=== PATIENT | female | born 1950 | race Caucasian/White ===

== ENCOUNTER 2018-08-29 10:21 | Emergency (ER) | payer BC, OTHER ==
[~2018-08-29] VITALS: Ht 165.1 cm; Wt 104.2 kg
[2018-08-29] MEDS ORDERED: RABIES IMMUNE GLOBULIN 1500 INTERNATIONAL UNIT/5ML VIAL (90375) IM ONE ×2 (10:45→11:00)
[2018-08-29] MEDS ORDERED: RABIES VACCINE HUMAN 2.5 INTERNATIONAL UNITS/ML VIAL (90675) IM ONE (10:45)
[2018-08-29] MEDS ORDERED: RABIES IMMUNE GLOBULIN 300 INTERNATIONAL UNITS/1ML VIAL (90375) IM ONE (11:00)
[2018-08-29 12:10] VITALS: BP 112/68
== END 2018-08-29 12:13 | disposition home or self-care (01) ==
LOC: M ED 10:21
DX: Z20.3 Contact with and (suspected) exposure to rabies (principal); Z23 Encounter for immunization; Z88.2 Allergy status to sulfonamides; Z87.891 Personal history of nicotine dependence

== ENCOUNTER 2018-09-01 06:22 | Emergency (ER) | payer BC, OTHER ==
[~2018-09-01] VITALS: Ht 165.1 cm; Wt 104.0 kg
[2018-09-01] MEDS ORDERED: ADACEL/BOOSTRIX VACCINE (DIPHTH/PERTUSS/ACELL/TETANUS)0.5ML SYR (90715) IM ONE (07:15)
[2018-09-01] MEDS ORDERED: RABIES VACCINE HUMAN 2.5 INTERNATIONAL UNITS/ML VIAL (90675) IM ONE (07:15)
[2018-09-01 08:10] VITALS: BP 134/60
== END 2018-09-01 08:38 | disposition home or self-care (01) ==
LOC: M ED 06:22
DX: Z23 Encounter for immunization (principal); Z20.3 Contact with and (suspected) exposure to rabies; E11.9 Type 2 diabetes mellitus without complications; Z79.899 Other long term (current) drug therapy; Z88.1 Allergy status to other antibiotic agents; Z88.2 Allergy status to sulfonamides; Z87.891 Personal history of nicotine dependence

== ENCOUNTER 2018-09-04 10:53 | Emergency (ER) | payer BC ==
[~2018-09-04] VITALS: Ht 165.1 cm; Wt 102.3 kg
[2018-09-04 11:05] VITALS: BP 144/65
[2018-09-04] MEDS ORDERED: FLON1SPR NARES (11:09)
[2018-09-04] MEDS ORDERED: EYESOL OP (11:09)
[2018-09-04] MEDS ORDERED: TETRACAINE 0.5% OPHTH SOLN 4ML OU ONE (13:15)
[2018-09-04] MEDS ORDERED: ERYT1OIN26 OP (14:22)
== END 2018-09-04 15:06 | disposition home or self-care (01) ==
LOC: M ED 10:53 → EDBD 10:53 → M ED 15:06
DX: H54.7 Unspecified visual loss (principal); E11.9 Type 2 diabetes mellitus without complications; Z79.899 Other long term (current) drug therapy; Z88.2 Allergy status to sulfonamides

== ENCOUNTER 2018-09-05 10:31 | Emergency (ER) | payer BC ==
[~2018-09-05] VITALS: Ht 165.1 cm; Wt 105.6 kg
[2018-09-05 10:31] VITALS: BP 135/70
[~2018-09-05 10:31] MED LIST: ERYT1OIN26 OP; EYESOL OP; FLON1SPR NARES
[2018-09-05] MEDS ORDERED: RABIES VACCINE HUMAN 2.5 INTERNATIONAL UNITS/ML VIAL (90675) IM ONE (11:00)
== END 2018-09-05 11:45 | disposition home or self-care (01) ==
LOC: M ED 10:31
DX: Z20.3 Contact with and (suspected) exposure to rabies (principal); Z23 Encounter for immunization

== ENCOUNTER 2018-09-12 08:53 | Emergency (ER) | payer BC, OTHER ==
[~2018-09-12] VITALS: Ht 165.1 cm; Wt 100.0 kg
[2018-09-12] MEDS ORDERED: RABIES VACCINE HUMAN 2.5 INTERNATIONAL UNITS/ML VIAL (90675) IM ONE (10:00)
[2018-09-12 10:23] VITALS: BP 153/74
== END 2018-09-12 10:32 | disposition home or self-care (01) ==
LOC: M ED 08:53
DX: Z20.3 Contact with and (suspected) exposure to rabies (principal); Z23 Encounter for immunization

== ENCOUNTER → 2018-10-06 | Outpatient (REF) | payer BC, OTHER ==
[2018-10-06 14:05] LABS: BASO # 0.1 10^3/uL (0.0-0.2); BASO % 0.6 % (0.0-1.0); EOS # 0.2 10^3/uL (0.0-0.50); EOS % 2.8 % (0.0-3.0); HEMATOCRIT 35.6 % (36.0-47.0); HEMOGLOBIN 11.8 g/dl (12.0-15.5); LYMPH # 1.8 10^3/uL (1.5-4.5); LYMPH % 22.3 % (24.0-44.0); MEAN CORPUSCULAR HGB CONC 33.1 g/dl (32.0-36.5); MEAN CORPUSCULAR VOLUME 90.6 fl (80.0-96.0); MONO # 0.4 10^3/uL (0.0-0.8); MONO % 5.4 % (0.0-5.0); NEUTROPHILS # 5.5 10^3/uL (1.8-7.7); NEUTROPHILS % 68.6 % (36.0-66.0); PLATELET COUNT, AUTOMATED 307 10^3/uL (150-450); RED BLOOD COUNT 3.93 10^6/uL (4.00-5.40)
[2018-10-06 14:20] LABS: ALBUMIN 3.7 GM/DL (3.2-5.2); ALT/SGPT 12 U/L (12-78); BILIRUBIN,TOTAL 0.5 MG/DL (0.2-1.0); BLOOD UREA NITROGEN 27 MG/DL (7-18); CALCIUM LEVEL 9.2 MG/DL (8.8-10.2); CARBON DIOXIDE LEVEL 25 MEQ/L (21-32); CHLORIDE LEVEL 108 MEQ/L (98-107); CREATININE FOR GFR 1.41 MG/DL (0.55-1.30); FREE T4 1.21 NG/DL (0.76-1.46); GLOMERULAR FILTRATION RATE 39.5 (>45); GLUCOSE, FASTING 167 MG/DL (70-100); POTASSIUM SERUM 4.7 MEQ/L (3.5-5.1); RHEUMATOID FACTOR QUANT < 10.0 IU/ML (<15.0); SODIUM LEVEL 138 MEQ/L (136-145); TOTAL PROTEIN 7.8 GM/DL (6.4-8.2)
[2018-10-06 14:41] LABS: VITAMIN B12 LEVEL 395 PG/ML (247-911)
[2018-10-06 14:42] LABS: FOLATE 11.5 NG/ML (>5.4)
[2018-10-06 15:00] LABS: ERYTHROCYTE SEDIMENTATION RATE 61 mm/hr (0-30)
[2018-10-12 00:08] LABS: ANCA-ATYPICAL <1:20 titer (Neg:<1:20); ANGIOTENSIN 1 CONVERTING ENZYM 26 U/L (14-82); ANTINUCLEAR ANTIBODIES DIRECT Negative (Negative); CYTOPLASMIC NEUTROP AB ANCA-C <1:20 titer (Neg:<1:20); Lyme Disease IgG/IgM Antibodie <0.91 ISR (0.00-0.90); Lyme Disease IgM Ab Quantitati <0.80 index (0.00-0.79); PERINUCLEAR AB ANCA-P <1:20 titer (Neg:<1:20); VITAMIN B1 LEVEL WHOLE BLOOD 121.7 nmol/L (66.5-200.0); VITAMIN B6,PYRIDOXAL PHOSPHATE 2.9 ug/L (2.0-32.8); VITAMIN E(ALPHA TOCOPHEROL) 12.6 mg/L (9.0-29.0); VITAMIN E(GAMMA TOCOPHEROL) 1.9 mg/L (0.5-4.9)
== END ==
LOC: M LABNEURO 08:45
PROVIDERS: ATTEND Psychiatry & Neurology Neurology
DX: R20.9 Unspecified disturbances of skin sensation (principal); Z11.9 Encounter for screening for infectious and parasitic diseases, unspecified

== ENCOUNTER 2021-06-16 10:29 | Inpatient (IN) | payer MEDICARE, BC, OTHER ==
[~2021-06-16] VITALS: Ht 165.1 cm; Wt 84.9 kg
[~2021-06-16 10:29] MED LIST changes: -ERYT1OIN26 OP; +ERYT5OIN25 OP
[2021-06-16] MEDS ORDERED: ONDANSETRON 4MG/2ML VIAL IV ONE (11:45)
[2021-06-16] MEDS ORDERED: NS 1,000 ML IV ONE (11:45)
[2021-06-16] MEDS ORDERED: PANTOPRAZOLE 40MG VIAL (C9113 PER 1) IV ONE (11:45)
[2021-06-16 11:55] LABS: BASO % 0.5 % (0.0-1.0); EOS # 0.1 10^3/uL (0.0-0.5); EOS % 1.4 % (0.0-3.0); HEMATOCRIT 26.4 % (36.0-47.0); HEMOGLOBIN 8.5 g/dl (12.0-15.5); LYMPH # 1.9 10^3/uL (1.5-5.0); LYMPH % 24.2 % (24.0-44.0); MEAN CORPUSCULAR HEMOGLOBIN 28.1 pg (27.0-33.0); MEAN CORPUSCULAR HGB CONC 32.2 g/dl (32.0-36.5); MEAN CORPUSCULAR VOLUME 87.1 fl (80.0-96.0); MONO # 0.4 10^3/uL (0.0-0.8); NEUTROPHILS # 5.3 10^3/uL (1.5-8.5); NEUTROPHILS % 68.5 % (36.0-66.0); PLATELET COUNT, AUTOMATED 376 10^3/uL (150-450); RED BLOOD COUNT 3.03 10^6/uL (4.00-5.40); WHITE BLOOD COUNT 7.8 10^3/uL (4.0-10.0)
[2021-06-16 12:16] LABS: ALBUMIN 3.5 GM/DL (3.2-5.2); BILIRUBIN,DIRECT 0.2 MG/DL (0.0-0.2); BILIRUBIN,TOTAL 0.4 MG/DL (0.2-1.0); TOTAL PROTEIN 8.5 GM/DL (6.4-8.2)
[2021-06-16] MEDS: GI COCKTAIL 50ML BTL(HYOSCYAMINE/MAALOX/LIDOCAINE VISCOUS)(1:3:1) PO ONE ×2 (12:26→12:41)
[2021-06-16 13:21] LABS: ACETONE/KETONE 5.71 MG/DL (<2.81)
[2021-06-16 15:08] LABS: HEMOGLOBIN A1c 5.4 %
[2021-06-16] MEDS ORDERED: HOME MED LIST COMPLETE! XX SCH (17:40)
[2021-06-16 18:26] LABS: ALBUMIN 3.3 GM/DL (3.2-5.2); ALT/SGPT 10 U/L (12-78); BILIRUBIN,TOTAL 0.4 MG/DL (0.2-1.0); BLOOD UREA NITROGEN 57 MG/DL (7-18); CALCIUM LEVEL 8.8 MG/DL (8.8-10.2); CARBON DIOXIDE LEVEL 22 MEQ/L (21-32); CHLORIDE LEVEL 112 MEQ/L (98-107); CREATININE FOR GFR 3.64 MG/DL (0.55-1.30); GLOMERULAR FILTRATION RATE 13.1 (>39); GLUCOSE, FASTING 90 MG/DL (70-100); POTASSIUM SERUM 4.6 MEQ/L (3.5-5.1); SODIUM LEVEL 141 MEQ/L (136-145); TOTAL PROTEIN 7.1 GM/DL (6.4-8.2)
[2021-06-16] MEDS: NS 1,000 ML IV SCH (18:28)
[2021-06-16 18:50] LABS: APPEARANCE, URINE HAZY (CLEAR); BACTERIA, URINE AUTO 1+ (NEGATIVE); BILIRUBIN, URINE AUTO NEGATIVE (NEGATIVE); BLOOD, URINE BLOOD NEGATIVE (NEGATIVE); COLOR, URINE YELLOW (YELLOW); GLUCOSE, URINE (UA) AUTO NEGATIVE (NEGATIVE); KETONE, URINE AUTO TRACE mg/dL (NEGATIVE); LEUKOCYTE ESTERASE, URINE AUTO 2+ (NEGATIVE); NITRITE, URINE AUTO NEGATIVE (NEGATIVE); PROTEIN, URINE AUTO 1+ mg/dL (NEGATIVE); RBC, URINE AUTO 6 /HPF (0-3); SPECIFIC GRAVITY URINE AUTO 1.012 (1.002-1.035); SQUAMOUS EPITHELIAL CELL UR AU 3 /HPF (0-6); TRANSITIONAL EPITHELIAL AUTO <1 /HPF; UROBILINOGEN, URINE AUTO 0.2 mg/dL (0.0-2.0); WBC, URINE AUTO 114 /HPF (0-3)
[2021-06-16 22:12] VITALS: BP 161/67
[2021-06-16 22:23] LABS: RSV AMPLIFICATION NEGATIVE (NEGATIVE)
[2021-06-16 22:26] LABS: FERRITIN 112 NG/ML (8-252); IRON (FE) 31 UG/DL (50-170); PERCENT SATURATION 12.6 % (13.2-45.0); TOTAL IRON BINDING CAPACITY 247 UG/DL (250-450)
[2021-06-16 22:39] LABS: CREATININE,RANDOM URINE 73.5 MG/DL
[2021-06-16 23:02] LABS: CA 125 94.7 U/ML (<30.2); CA19-9 TUMOR MARKER,CARBOHYDRA < 1.2 U/ML (<35.0)
[2021-06-17] MEDS: NS 1,000 ML IV SCH ×3 (03:14→22:00)
[2021-06-17 04:00] VITALS: BP 128/59
[2021-06-17 05:52] LABS: BASO % 0.5 % (0.0-1.0); EOS # 0.2 10^3/uL (0.0-0.5); EOS % 2.4 % (0.0-3.0); HEMATOCRIT 25.2 % (36.0-47.0); LYMPH # 2.5 10^3/uL (1.5-5.0); LYMPH % 30.9 % (24.0-44.0); MEAN CORPUSCULAR HEMOGLOBIN 28.3 pg (27.0-33.0); MEAN CORPUSCULAR HGB CONC 31.7 g/dl (32.0-36.5); MONO # 0.5 10^3/uL (0.0-0.8); MONO % 5.6 % (2.0-8.0); NEUTROPHILS # 4.9 10^3/uL (1.5-8.5); PLATELET COUNT, AUTOMATED 341 10^3/uL (150-450); RED BLOOD COUNT 2.83 10^6/uL (4.00-5.40); WHITE BLOOD COUNT 8.2 10^3/uL (4.0-10.0)
[2021-06-17 06:11] LABS: CREATININE FOR GFR 3.77 MG/DL (0.55-1.30)
[2021-06-17 06:12] LABS: ALBUMIN 3.2 GM/DL (3.2-5.2); BILIRUBIN,TOTAL 0.4 MG/DL (0.2-1.0); CALCIUM LEVEL 8.6 MG/DL (8.8-10.2); GLOMERULAR FILTRATION RATE 12.6 (>39); POTASSIUM SERUM 4.9 MEQ/L (3.5-5.1); TOTAL PROTEIN 7.1 GM/DL (6.4-8.2)
[2021-06-17 08:26] VITALS: BP 159/70
[2021-06-17] MEDS: HEPARIN SOD (PORCINE) 5000UNITS/ML 1ML VIAL/SYRINGE SC SCH ×2 (08:58→22:00)
[2021-06-17 11:45] LABS: PHOSPHORUS LEVEL 4.2 MG/DL (2.5-4.9); TOTAL PROTEIN 7.3 GM/DL (6.4-8.2)
[2021-06-17 11:55] LABS: PTH INTACT 310.1 PG/ML (18.5-88.0); TOTAL 25(OH) VITAMIN D 8.4 NG/ML (30.0-100.0)
[2021-06-17] MEDS: ACETAMINOPHEN TAB 650MG DOSE (2X325MG) PO PRN (12:02)
[2021-06-17] MEDS ORDERED: IRON SUCROSE 100MG 5ML VIAL (J1756 PER 1MG) IV SCH (12:15)
[2021-06-17 12:16] VITALS: BP 158/70
[2021-06-17 14:05] LABS: CREATININE,RANDOM URINE 46.3 MG/DL
[2021-06-17] MEDS ORDERED: IRON SUCROSE 200 MG in NS 100 ML OVER 1 HR IV SCH (15:00)
[2021-06-17 16:45] VITALS: BP 136/66
[2021-06-17 16:49] LABS: TOTAL PROTEIN,RANDOM URINE 51.4 MG/DL (0.0-12.0)
[2021-06-17 19:45] VITALS: BP 121/56
[2021-06-18 00:30] VITALS: BP 132/57
[2021-06-18 03:50] VITALS: BP 115/55
[2021-06-18] MEDS: NS 1,000 ML IV SCH (05:37)
[2021-06-18 06:00] LABS: BASO % 0.5 % (0.0-1.0); EOS # 0.3 10^3/uL (0.0-0.5); EOS % 5.5 % (0.0-3.0); HEMATOCRIT 24.1 % (36.0-47.0); HEMOGLOBIN 7.6 g/dl (12.0-15.5); LYMPH # 1.7 10^3/uL (1.5-5.0); LYMPH % 28.6 % (24.0-44.0); MEAN CORPUSCULAR HGB CONC 31.5 g/dl (32.0-36.5); MEAN CORPUSCULAR VOLUME 88.9 fl (80.0-96.0); MONO # 0.4 10^3/uL (0.0-0.8); MONO % 6.6 % (2.0-8.0); NEUTROPHILS # 3.5 10^3/uL (1.5-8.5); NEUTROPHILS % 58.5 % (36.0-66.0); PLATELET COUNT, AUTOMATED 292 10^3/uL (150-450); RED BLOOD COUNT 2.71 10^6/uL (4.00-5.40)
[2021-06-18 06:26] LABS: ALBUMIN 2.8 GM/DL (3.2-5.2); BILIRUBIN,TOTAL 0.2 MG/DL (0.2-1.0); CALCIUM LEVEL 8.7 MG/DL (8.8-10.2); CREATININE FOR GFR 3.48 MG/DL (0.55-1.30); GLOMERULAR FILTRATION RATE 13.8 (>39); POTASSIUM SERUM 4.7 MEQ/L (3.5-5.1)
[2021-06-18 08:30] VITALS: BP 116/58
[2021-06-18] MEDS ORDERED: VITAMIN D 1,000 INTERNATIONAL UNITS TABLET PO SCH (09:00)
[2021-06-18] MEDS ORDERED: CALCITRIOL 0.25 MCG CAP (S0169) PO SCH (09:00)
[2021-06-18] MEDS: HEPARIN SOD (PORCINE) 5000UNITS/ML 1ML VIAL/SYRINGE SC SCH (09:24)
[2021-06-18] MEDS ORDERED: E-Z-HD 98% w/w 340GM SUSP BTL As Ordered ONE (10:35)
[2021-06-18] MEDS ORDERED: E-Z-GAS II EFFERVESCENT PACKET (SODIUM BICARB./CITRIC ACID/SIMETHICONE) As Ordered ONE (10:35)
[2021-06-18] MEDS ORDERED: E-Z-PAQUE 96% w/w SUSP 176GM BTL As Ordered ONE (10:35)
[2021-06-18] MEDS ORDERED: FERRIC CARBOXYMALTOSE INJ 750 MG, VIAL MATE ADAPTER 1 EACH in NS 250 ML IV ONE (11:00)
[2021-06-18 14:01] VITALS: BP 120/64
[2021-06-18] MEDS: ACETAMINOPHEN TAB 650MG DOSE (2X325MG) PO PRN (14:36)
[2021-06-18 15:00] LABS: HEMATOCRIT 24.8 % (36.0-47.0); HEMOGLOBIN 7.8 g/dl (12.0-15.5)
[2021-06-18 16:16] VITALS: BP 132/61
[2021-06-18] MEDS ORDERED: CALC1CAP31 PO (17:28)
[2021-06-18] MEDS ORDERED: VITAD1000T PO (17:28)
[2021-06-18] MEDS ORDERED: OMEP40CA4 PO (17:59)
[2021-06-19] MEDS ORDERED: FERR1TAB8 PO (13:01)
[2021-06-19 17:11] LABS: H PYLORI SERUM QUANT IGA <9.0 units (0.0-8.9); H PYLORI SERUM QUANT IGM <9.0 units (0.0-8.9)
[2021-06-22 12:13] LABS: ALBUMIN 3.39 GM/DL (3.29-5.55); ALBUMIN % 46.5 % (55.8-66.1); ALPHA-1-GLOBULIN % 5.5 % (2.9-4.9); ALPHA-2-GLOBULINS 0.88 GM/DL (0.42-0.99); ALPHA-2-GLOBULINS % 12.1 % (7.1-11.8); BETA-1-GLOBULINS 0.38 GM/DL (0.28-0.60); BETA-1-GLOBULINS % 5.2 % (4.7-7.2); BETA-2-GLOBULINS 0.56 GM/DL (0.19-0.55); BETA-2-GLOBULINS % 7.7 % (3.2-6.5); GAMMA GLOBULINS 1.68 GM/DL (0.65-1.58)
== END 2021-06-18 19:17 | disposition home or self-care (01) | DRG 755 ==
LOC: EDBD 10:29 → M ED 10:29 → M ED INP 17:31 → ENRESERV 21:14 → M PCU 22:06
PROVIDERS: ADMIT Internal Medicine; ATTEND Internal Medicine
DX: C56.2 Malignant neoplasm of left ovary (principal); N18.5 Chronic kidney disease, stage 5; E11.22 Type 2 diabetes mellitus with diabetic chronic kidney disease; D50.9 Iron deficiency anemia, unspecified; D63.1 Anemia in chronic kidney disease; Z88.2 Allergy status to sulfonamides; Z87.891 Personal history of nicotine dependence; Z79.1 Long term (current) use of non-steroidal anti-inflammatories (NSAID)

== ENCOUNTER 2021-12-18 12:45 | Emergency (ER) | payer MEDICARE, BC ==
[~2021-12-18] VITALS: Ht 165.1 cm; Wt 65.9 kg
[~2021-12-18 12:45] MED LIST changes: +CALC1CAP31 PO; +FERR1TAB8 PO; +OMEP40CA4 PO; +VITAD1000T PO
[2021-12-18 12:46] VITALS: BP 122/64
[2021-12-18 15:06] LABS: BASO % 0.4 % (0.0-1.0); EOS # 0.2 10^3/uL (0.0-0.5); EOS % 2.5 % (0.0-3.0); HEMATOCRIT 25.6 % (36.0-47.0); HEMOGLOBIN 8.5 g/dl (12.0-15.5); LYMPH # 1.5 10^3/uL (1.5-5.0); MEAN CORPUSCULAR HEMOGLOBIN 31.7 pg (27.0-33.0); MEAN CORPUSCULAR HGB CONC 33.2 g/dl (32.0-36.5); MEAN CORPUSCULAR VOLUME 95.5 fl (80.0-96.0); MONO # 0.4 10^3/uL (0.0-0.8); MONO % 6.2 % (2.0-8.0); NEUTROPHILS # 4.8 10^3/uL (1.5-8.5); NEUTROPHILS % 69.6 % (36.0-66.0); PLATELET COUNT, AUTOMATED 283 10^3/uL (150-450); RED BLOOD COUNT 2.68 10^6/uL (4.00-5.40); WHITE BLOOD COUNT 6.9 10^3/uL (4.0-10.0)
[2021-12-18 15:39] LABS: CALCIUM LEVEL 8.7 MG/DL (8.8-10.2); CREATININE FOR GFR 2.54 MG/DL (0.55-1.30); GLOMERULAR FILTRATION RATE 19.8 (>39); POTASSIUM SERUM 4.4 MEQ/L (3.5-5.1)
[2021-12-18 16:57] LABS: CA 125 61.5 U/ML (<30.2)
[2021-12-18] MEDS ORDERED: ACETAMINOPHEN TAB 650MG DOSE (2X325MG) PO ONE (18:05)
[2021-12-18] MEDS ORDERED: COLA100C5 PO (18:31)
[2021-12-18] MEDS ORDERED: MIRA3350 PO (18:31)
== END 2021-12-18 19:23 | disposition home or self-care (01) ==
LOC: M ED 12:45
DX: N95.0 Postmenopausal bleeding (principal); N83.291 Other ovarian cyst, right side; N18.9 Chronic kidney disease, unspecified; D64.9 Anemia, unspecified; Z79.899 Other long term (current) drug therapy; Z88.1 Allergy status to other antibiotic agents; Z88.2 Allergy status to sulfonamides

== ENCOUNTER → 2022-01-05 | Outpatient (REF) | payer MEDICARE, BC ==
[~2022-01-05] MED LIST changes: +COLA100C5 PO; +MIRA3350 PO
== END ==
LOC: M SFHCWAGY 09:56
PROVIDERS: ATTEND Obstetrics & Gynecology
DX: C53.9 Malignant neoplasm of cervix uteri, unspecified (principal); N88.8 Other specified noninflammatory disorders of cervix uteri

== ENCOUNTER → 2022-02-10 | Outpatient (CLI) | payer MEDICARE, BC | LOC: M ONCR 08:44 | PROVIDERS: ATTEND General Practice | DX: C53.9 Malignant neoplasm of cervix uteri, unspecified (principal); J30.2 Other seasonal allergic rhinitis; Z87.891 Personal history of nicotine dependence; Z88.1 Allergy status to other antibiotic agents; Z88.2 Allergy status to sulfonamides ==

== ENCOUNTER → 2022-03-01 | Outpatient (CLI) | payer MEDICARE, BC | LOC: M PLARAD 07:37 | PROVIDERS: ATTEND Obstetrics & Gynecology Gynecologic Oncology | DX: C53.0 Malignant neoplasm of endocervix (principal) | CPT/HCPCS: 78815; A9552 ==

== ENCOUNTER → 2022-03-14 | Outpatient (CLI) | payer MEDICARE, BC ==
[~2022-03-14] MED LIST changes: +ACET650T61 PO; +HYDR-3713; +LIDO1CRE42 TOP; +ONDA-84 PO; +PROC10TA5 PO; +TRIA1CR80 TOP
== END ==
LOC: M LABSMTC 10:40
PROVIDERS: ATTEND Anesthesiology
DX: Z01.812 Encounter for preprocedural laboratory examination (principal); Z20.822 Contact with and (suspected) exposure to COVID-19

== ENCOUNTER → 2022-03-15 | Outpatient (CLI) | payer MEDICARE, BC ==
[~2022-03-15] MED LIST changes: +LIDOCAINE 1% MDV 20ML VIAL As Ordered ONE; +MIDAZOLAM INJ 2MG/2ML VIAL (J2250 PER 1MG) As Ordered ONE; +NS 1,000 ML IV SCH; +ceFAZolin 2 GM/D5W 50 ML IV BAG As Ordered ONE; +ceFAZolin SOD 2 GM in IV 1 EA IV ONE; +diphenhydrAMINE 50MG/ML VIAL As Ordered ONE; +fentaNYL 100 MCG/2 ML INJECTION As Ordered ONE
[2022-03-15 13:30] VITALS: BP 166/74
== END ==
LOC: M IRPRO 08:24
PROVIDERS: ATTEND Specialist
DX: C53.0 Malignant neoplasm of endocervix (principal)
CPT/HCPCS: 36561; 99152; 99153; C1769; C1788; C1894; J0690; J1200; J1642; J1644; J2250; J3010

== ENCOUNTER 2022-03-22 19:00 | Inpatient (IN) | payer MEDICARE, BC ==
[~2022-03-22] VITALS: Ht 165.1 cm; Wt 77.3 kg
[~2022-03-22 19:00] MED LIST changes: -LIDOCAINE 1% MDV 20ML VIAL As Ordered ONE; -MIDAZOLAM INJ 2MG/2ML VIAL (J2250 PER 1MG) As Ordered ONE; -NS 1,000 ML IV SCH; -ceFAZolin 2 GM/D5W 50 ML IV BAG As Ordered ONE; -ceFAZolin SOD 2 GM in IV 1 EA IV ONE; -diphenhydrAMINE 50MG/ML VIAL As Ordered ONE; -fentaNYL 100 MCG/2 ML INJECTION As Ordered ONE
[2022-03-22] MEDS ORDERED: NS 1,000 ML IV ONE (19:30)
[2022-03-22 19:49] LABS: BASO % 0.2 % (0.0-1.0); EOS % 0.3 % (0.0-3.0); HEMOGLOBIN 8.3 g/dl (12.0-15.5); LYMPH # 0.4 10^3/uL (1.5-5.0); LYMPH % 5.7 % (24.0-44.0); MEAN CORPUSCULAR HGB CONC 31.9 g/dl (32.0-36.5); MONO % 0.3 % (2.0-8.0); NEUTROPHILS # 5.7 10^3/uL (1.5-8.5); NEUTROPHILS % 92.8 % (36.0-66.0); PLATELET COUNT, AUTOMATED 167 10^3/uL (150-450); RED BLOOD COUNT 2.68 10^6/uL (4.00-5.40); WHITE BLOOD COUNT 6.1 10^3/uL (4.0-10.0)
[2022-03-22 20:18] LABS: ALBUMIN 3.3 G/DL (3.2-5.2); BILIRUBIN,DIRECT 0.2 MG/DL (<0.4); BILIRUBIN,TOTAL 0.7 MG/DL (0.3-1.2); CALCIUM LEVEL 8.9 MG/DL (8.3-10.6); CREATININE FOR GFR 1.75 MG/DL (0.55-1.30); GLOMERULAR FILTRATION RATE 30.4 (>39); POTASSIUM SERUM 3.8 MMOL/L (3.5-5.1); TOTAL PROTEIN 6.9 G/DL (5.7-8.2)
[2022-03-22 20:29] LABS: RSV AMPLIFICATION NEGATIVE (NEGATIVE)
[2022-03-22] MEDS: ONDANSETRON 4MG 2ML VIAL IV ONE ×2 (20:41→21:23)
[2022-03-22] MEDS ORDERED: ACETAMINOPHEN TAB 650MG DOSE (2X325MG) PO ONE (20:55)
[2022-03-22] MEDS ORDERED: ACET-683 PO (22:35)
[2022-03-22] MEDS ORDERED: TRIA1CR80 TOP (22:35)
[2022-03-22] MEDS ORDERED: ONDA-84 PO (22:35)
[2022-03-22] MEDS ORDERED: PROC10TA5 PO (22:35)
[2022-03-22] MEDS ORDERED: HOME MED LIST COMPLETE! XX SCH (22:40)
[2022-03-22] MEDS ORDERED: GLUCOSE 4GM CHEW TABLET PO PRN (23:55)
[2022-03-22] MEDS ORDERED: GLUCAGON INJ 1MG VIAL SC PRN (23:55)
[2022-03-22] MEDS ORDERED: DEXTROSE 50% 50ML SYRINGE IV PRN (23:55)
[2022-03-23] MEDS ORDERED: ONDANSETRON 4MG 2ML VIAL IV PRN (01:00)
[2022-03-23] MEDS: DOXYCYCLINE HYCLATE 100 MG in D5W MINI-BAG PLUS 100 ML IV SCH ×2 (01:00→12:29)
[2022-03-23] MEDS ORDERED: PANTOPRAZOLE 40MG VIAL IV ONE (01:00)
[2022-03-23] MEDS ORDERED: METOCLOPRAMIDE INJ 10MG/2ML VIAL IV ONE (01:00)
[2022-03-23] MEDS: LR 1,000 ML IV SCH ×3 (02:35→22:39)
[2022-03-23] MEDS ORDERED: INSULIN LISPRO (NovoLOG) PER UNIT SC SCH ×2 (06:00→08:50)
[2022-03-23 08:21] LABS: BASO % 0.4 % (0.0-1.0); HEMATOCRIT 24.9 % (36.0-47.0); LYMPH # 0.2 10^3/uL (1.5-5.0); LYMPH % 7.9 % (24.0-44.0); MEAN CORPUSCULAR HEMOGLOBIN 31.4 pg (27.0-33.0); MEAN CORPUSCULAR HGB CONC 32.1 g/dl (32.0-36.5); MEAN CORPUSCULAR VOLUME 97.6 fl (80.0-96.0); MONO % 1.1 % (2.0-8.0); NEUTROPHILS # 2.3 10^3/uL (1.5-8.5); PLATELET COUNT, AUTOMATED 132 10^3/uL (150-450); RED BLOOD COUNT 2.55 10^6/uL (4.00-5.40); WHITE BLOOD COUNT 2.7 10^3/uL (4.0-10.0)
[2022-03-23 08:45] LABS: MAGNESIUM LEVEL 1.6 MG/DL (1.8-2.4)
[2022-03-23 08:46] LABS: CALCIUM LEVEL 8.2 MG/DL (8.3-10.6); CREATININE FOR GFR 1.89 MG/DL (0.55-1.30); GLOMERULAR FILTRATION RATE 27.8 (>39)
[2022-03-23] MEDS ORDERED: NS 1,000 ML IV ONE ×2 (09:10)
[2022-03-23] MEDS ORDERED: MAG SULF 1GM/100ML (MAG RUN) 1 GM in IV 1 EA IV ONE (10:00)
[2022-03-23] MEDS: INSULIN LISPRO (NovoLOG) PER UNIT SC SCH ×3 (12:37→21:00)
[2022-03-23] MEDS ORDERED: DOXY-444 PO (13:07)
[2022-03-23 13:41] LABS: HEMATOCRIT 25.6 % (36.0-47.0); HEMOGLOBIN 8.1 g/dl (12.0-15.5); MEAN CORPUSCULAR HEMOGLOBIN 31.8 pg (27.0-33.0); MEAN CORPUSCULAR HGB CONC 31.6 g/dl (32.0-36.5); MEAN CORPUSCULAR VOLUME 100.4 fl (80.0-96.0); PLATELET COUNT, AUTOMATED 136 10^3/uL (150-450); RED BLOOD COUNT 2.55 10^6/uL (4.00-5.40); WHITE BLOOD COUNT 2.5 10^3/uL (4.0-10.0)
[2022-03-23] MEDS ORDERED: DICYCLOMINE 10 MG CAP PO PRN (14:25)
[2022-03-23] MEDS: DOXYCYCLINE HYCLATE 100MG TABLET PO SCH (22:39)
[2022-03-24] VITALS (13 sets, daily range): BP systolic 117–161; BP diastolic 59–70
[2022-03-24 06:57] LABS: BASO % 0.5 % (0.0-1.0); EOS # 0.1 10^3/uL (0.0-0.5); EOS % 2.9 % (0.0-3.0); LYMPH % 47.1 % (24.0-44.0); MEAN CORPUSCULAR HGB CONC 31.5 g/dl (32.0-36.5); MEAN CORPUSCULAR VOLUME 98.5 fl (80.0-96.0); MONO # 0.1 10^3/uL (0.0-0.8)
[2022-03-24] MEDS: LR 1,000 ML IV SCH (07:00)
[2022-03-24 07:20] LABS: MAGNESIUM LEVEL 1.6 MG/DL (1.8-2.4)
[2022-03-24 07:22] LABS: CALCIUM LEVEL 7.7 MG/DL (8.3-10.6); CREATININE FOR GFR 2.19 MG/DL (0.55-1.30); GLOMERULAR FILTRATION RATE 23.5 (>39); POTASSIUM SERUM 3.9 MMOL/L (3.5-5.1)
[2022-03-24] MEDS: INSULIN LISPRO (NovoLOG) PER UNIT SC SCH ×4 (07:30→21:00)
[2022-03-24 07:40] LABS: PLATELET COUNT, AUTOMATED 95 10^3/uL (150-450)
[2022-03-24 07:42] LABS: HEMATOCRIT 19.7 % (36.0-47.0); HEMOGLOBIN 6.2 g/dl (12.0-15.5)
[2022-03-24 07:45] LABS: MONO % 2.5 % (2.0-8.0)
[2022-03-24] MEDS ORDERED: MAG SULF 1GM/100ML (MAG RUN) 1 GM in IV 1 EA IV ONE ×2 (08:00→11:00)
[2022-03-24] MEDS ORDERED: FILGRASTIM 480 MCG/0.8 ML SYRINGE **SC ADMINISTRATION ONLY SC SCH (09:00)
[2022-03-24] MEDS: DOXYCYCLINE HYCLATE 100MG TABLET PO SCH ×2 (10:23→21:23)
[2022-03-24] MEDS: ACETAMINOPHEN TAB 650MG DOSE (2X325MG) PO PRN (10:39)
[2022-03-24] MEDS: OMEPRAZOLE 20MG CAP PO SCH (13:30)
[2022-03-24 20:32] LABS: HEMATOCRIT 28.6 % (36.0-47.0)
[2022-03-24 20:42] LABS: HEMOGLOBIN 9.3 g/dl (12.0-15.5)
[2022-03-25 06:40] VITALS: BP 116/48
[2022-03-25 07:14] LABS: MAGNESIUM LEVEL 1.6 MG/DL (1.8-2.4)
[2022-03-25 07:16] LABS: CALCIUM LEVEL 8.1 MG/DL (8.3-10.6); CREATININE FOR GFR 1.99 MG/DL (0.55-1.30); GLOMERULAR FILTRATION RATE 26.2 (>39); POTASSIUM SERUM 4.3 MMOL/L (3.5-5.1)
[2022-03-25 07:25] LABS: HEMATOCRIT 24.8 % (36.0-47.0); HEMOGLOBIN 8.3 g/dl (12.0-15.5); MEAN CORPUSCULAR HEMOGLOBIN 31.7 pg (27.0-33.0); MEAN CORPUSCULAR HGB CONC 33.5 g/dl (32.0-36.5); MEAN CORPUSCULAR VOLUME 94.7 fl (80.0-96.0); RED BLOOD COUNT 2.62 10^6/uL (4.00-5.40); WHITE BLOOD COUNT 9.2 10^3/uL (4.0-10.0)
[2022-03-25 07:30] LABS: PLATELET COUNT, AUTOMATED 57 10^3/uL (150-450)
[2022-03-25] MEDS: INSULIN LISPRO (NovoLOG) PER UNIT SC SCH (07:30)
[2022-03-25 07:36] LABS: EOSINOPHILS 2 % (0-3); LYMPHOCYTES 13 % (16-44); MONOCYTES 2 % (0-5); NEUTROPHILS 60 % (28-66)
[2022-03-25 07:38] LABS: HYPOCHROMASIA 1+
[2022-03-25 07:40] LABS: PLATELET ESTIMATE DECREASED (NORMAL)
[2022-03-25] MEDS ORDERED: MAG SULF 1GM/100ML (MAG RUN) 1 GM in IV 1 EA IV ONE (08:00)
[2022-03-25] MEDS ORDERED: MAGNESIUM OXIDE 400MG TAB (MAG-OX) PO ONE (08:00)
[2022-03-25] MEDS: OMEPRAZOLE 20MG CAP PO SCH (08:06)
[2022-03-25] MEDS: DOXYCYCLINE HYCLATE 100MG TABLET PO SCH (08:06)
[2022-03-25] MEDS: ACETAMINOPHEN TAB 650MG DOSE (2X325MG) PO PRN (11:50)
== END 2022-03-25 12:30 | disposition home or self-care (01) | DRG 640 ==
LOC: M ED 19:00 → EDBD 19:00 → M ED INP 19:01 → OBSVTOIN 03-23 14:29 → ENRESERV 03-24 14:45 → M MS5PR 03-24 17:55
PROVIDERS: ADMIT Internal Medicine; ATTEND Internal Medicine
PROC: 30233N1 Transfusion of Nonautologous Red Blood Cells into Peripheral Vein, Percutaneous Approach (ICD-10-PCS; principal; 2022-03-24)
DX: E86.0 Dehydration (principal); D61.810 Antineoplastic chemotherapy induced pancytopenia; E46 Unspecified protein-calorie malnutrition; E11.22 Type 2 diabetes mellitus with diabetic chronic kidney disease; N18.9 Chronic kidney disease, unspecified; C53.9 Malignant neoplasm of cervix uteri, unspecified; J30.2 Other seasonal allergic rhinitis; R11.2 Nausea with vomiting, unspecified; T45.1X5A Adverse effect of antineoplastic and immunosuppressive drugs, initial encounter; R53.1 Weakness; Z79.899 Other long term (current) drug therapy; Z88.2 Allergy status to sulfonamides; Z95.828 Presence of other vascular implants and grafts; E83.42 Hypomagnesemia; I95.1 Orthostatic hypotension

== ENCOUNTER 2022-03-26 11:05 | Outpatient (RCR) | payer MEDICARE, BC ==
[~2022-03-26 11:05] MED LIST changes: +ACET-683 PO; +DOXY-444 PO
[2022-04-01] MEDS ORDERED: ANAS0.12 PO (11:53)
== END 2022-03-27 ==
LOC: M ONCR 11:05
PROVIDERS: ATTEND General Practice
DX: C53.0 Malignant neoplasm of endocervix (principal)

== ENCOUNTER → 2022-04-07 | Outpatient (REF) | payer MEDICARE, BC ==
[~2022-04-07] MED LIST changes: +ANAS0.12 PO
[2022-04-07 12:30] LABS: HEMOGLOBIN A1c 5.4 % (4.0-6.0)
== END ==
LOC: M LAB REF 11:55
PROVIDERS: ATTEND Physician Assistant
DX: E11.9 Type 2 diabetes mellitus without complications (principal)

== ENCOUNTER → 2022-04-15 | Outpatient (CLI) | payer MEDICARE, BC | LOC: M PLARAD 12:57 | PROVIDERS: ATTEND General Practice | DX: C53.0 Malignant neoplasm of endocervix (principal) | CPT/HCPCS: 36430; 72195; 96523; J1642; P9016 ==

== ENCOUNTER → 2022-04-15 | Outpatient (CLI) | payer MEDICARE, BC ==
[~2022-04-15] VITALS: Ht 165.1 cm; Wt 77.3 kg
[~2022-04-15] MED LIST changes: +ACETAMINOPHEN TAB 650MG DOSE (2X325MG) PO SCH; +SODIUM CHLORIDE 0.9% INJ 10 ML SYR IV PRN; +SODIUM CHLORIDE 0.9% INJ 10 ML SYR IV SCH; +diphenhydrAMINE 25MG CAP PO SCH
[2022-04-15 08:03] VITALS: BP 138/62
[2022-04-15 08:15] VITALS: BP 124/60
[2022-04-15 09:40] VITALS: BP 141/68
== END ==
LOC: M INFU 07:37
PROVIDERS: ATTEND Specialist
DX: C53.0 Malignant neoplasm of endocervix (principal); Z88.2 Allergy status to sulfonamides

== ENCOUNTER 2022-04-16 11:14 | Outpatient (RCR) | payer MEDICARE, BC ==
[~2022-04-16 11:14] MED LIST changes: -ACETAMINOPHEN TAB 650MG DOSE (2X325MG) PO SCH; -SODIUM CHLORIDE 0.9% INJ 10 ML SYR IV PRN; -SODIUM CHLORIDE 0.9% INJ 10 ML SYR IV SCH; -diphenhydrAMINE 25MG CAP PO SCH
== END 2022-04-27 ==
LOC: M ONCR 11:14
PROVIDERS: ATTEND General Practice
DX: C53.0 Malignant neoplasm of endocervix (principal)

== ENCOUNTER → 2022-04-19 | Outpatient (CLI) | payer MEDICARE, BC ==
[2022-04-19 09:15] LABS: RSV AMPLIFICATION NEGATIVE (NEGATIVE)
== END ==
LOC: M ONCR 08:11
PROVIDERS: ATTEND General Practice
DX: C53.0 Malignant neoplasm of endocervix (principal)

== ENCOUNTER 2022-05-26 11:35 | Outpatient (CLI) | payer MEDICARE, BC ==
[~2022-05-26] VITALS: Ht 165.1 cm; Wt 75.0 kg
[2022-05-26] MEDS ORDERED: ACETAMINOPHEN 500 MG TAB PO ONE (11:50)
[2022-05-26] MEDS ORDERED: diphenhydrAMINE 25MG CAP PO ONE (11:50)
[2022-05-26 12:20] VITALS: BP 95/52
[2022-05-26 12:40] VITALS: BP 112/57
[2022-05-26] MEDS ORDERED: SODIUM CHLORIDE 0.9% INJ 10 ML SYR IV PRN (13:35)
[2022-05-26 13:45] VITALS: BP 128/64
[2022-05-26 14:45] VITALS: BP 119/56
[2022-05-27] MEDS ORDERED: SODIUM CHLORIDE 0.9% INJ 10 ML SYR IV SCH (09:00)
== END 2022-05-26 14:45 | disposition home or self-care (01) ==
LOC: M INFU 11:35
PROVIDERS: ATTEND General Practice
DX: C53.0 Malignant neoplasm of endocervix (principal); Z88.2 Allergy status to sulfonamides
CPT/HCPCS: 36430; 36591; 80053; 85025; 86850; 86900; 86901; 86920; 96523; G0463; P9016

== ENCOUNTER → 2022-05-26 | Outpatient (CLI) | payer MEDICARE, BC | LOC: M ONCR 09:41 | PROVIDERS: ATTEND General Practice | DX: C53.0 Malignant neoplasm of endocervix (principal) ==

== ENCOUNTER → 2022-05-26 | Outpatient (CLI) | payer MEDICARE, BC ==
[2022-05-26 10:14] LABS: BASO # 0.1 10^3/uL (0.0-0.2); BASO % 0.6 % (0.0-1.0); EOS # 0.3 10^3/uL (0.0-0.5); EOS % 3.2 % (0.0-3.0); HEMATOCRIT 24.7 % (36.0-47.0); LYMPH # 0.5 10^3/uL (1.5-5.0); LYMPH % 6.7 % (24.0-44.0); MEAN CORPUSCULAR HEMOGLOBIN 32.4 pg (27.0-33.0); MEAN CORPUSCULAR HGB CONC 32.4 g/dl (32.0-36.5); MONO # 0.7 10^3/uL (0.0-0.8); MONO % 8.5 % (2.0-8.0); NEUTROPHILS # 6.5 10^3/uL (1.5-8.5); NEUTROPHILS % 80.4 % (36.0-66.0); PLATELET COUNT, AUTOMATED 242 10^3/uL (150-450); RED BLOOD COUNT 2.47 10^6/uL (4.00-5.40); WHITE BLOOD COUNT 8.1 10^3/uL (4.0-10.0)
[2022-05-26 10:37] LABS: ALBUMIN 3.6 G/DL (3.2-5.2); ALKALINE PHOSPHATASE 88 U/L (46-116); ALT/SGPT < 9 U/L (7.0-40); AST/SGOT 15 U/L (<34); BILIRUBIN,TOTAL 0.7 MG/DL (0.3-1.2); BLOOD UREA NITROGEN 37 MG/DL (9-23); CARBON DIOXIDE LEVEL 23 MMOL/L (20-31); CHLORIDE LEVEL 107 MMOL/L (98-107); CREATININE FOR GFR 1.86 MG/DL (0.55-1.30); GLOMERULAR FILTRATION RATE 28.4 (>39); GLUCOSE, FASTING 131 MG/DL (74-106); POTASSIUM SERUM 4.3 MMOL/L (3.5-5.1); SODIUM LEVEL 138 MMOL/L (136-145); TOTAL PROTEIN 7.2 G/DL (5.7-8.2)
== END ==
LOC: M ONCR 09:01
PROVIDERS: ATTEND General Practice
DX: C53.0 Malignant neoplasm of endocervix (principal); R09.81 Nasal congestion; R51.9 Headache, unspecified; Z92.21 Personal history of antineoplastic chemotherapy; Z92.3 Personal history of irradiation

== ENCOUNTER → 2022-07-05 | Outpatient (CLI) | payer MEDICARE, BC | LOC: M PLARAD 08:08 | PROVIDERS: ATTEND General Practice | DX: C53.0 Malignant neoplasm of endocervix (principal) | CPT/HCPCS: 78815; A9552 ==

== ENCOUNTER → 2022-07-15 | Outpatient (CLI) | payer MEDICARE, BC | LOC: M ONCR 09:45 | PROVIDERS: ATTEND General Practice | DX: C53.0 Malignant neoplasm of endocervix (principal); R19.7 Diarrhea, unspecified; J30.89 Other allergic rhinitis; J30.2 Other seasonal allergic rhinitis; Z71.2 Person consulting for explanation of examination or test findings; Z79.899 Other long term (current) drug therapy; Z87.891 Personal history of nicotine dependence; Z88.1 Allergy status to other antibiotic agents; Z88.2 Allergy status to sulfonamides; Z92.21 Personal history of antineoplastic chemotherapy; Z92.3 Personal history of irradiation ==

== ENCOUNTER → 2022-07-22 | Outpatient (CLI) | payer MEDICARE, BC ==
[2022-07-22 17:44] LABS: BASO % 0.5 % (0.0-1.0); EOS # 0.3 10^3/uL (0.0-0.5); EOS % 5.6 % (0.0-3.0); HEMATOCRIT 27.1 % (36.0-47.0); HEMOGLOBIN 8.8 g/dl (12.0-15.5); LYMPH # 0.9 10^3/uL (1.5-5.0); LYMPH % 16.6 % (24.0-44.0); MEAN CORPUSCULAR HEMOGLOBIN 32.1 pg (27.0-33.0); MEAN CORPUSCULAR HGB CONC 32.5 g/dl (32.0-36.5); MEAN CORPUSCULAR VOLUME 98.9 fl (80.0-96.0); MONO # 0.5 10^3/uL (0.0-0.8); MONO % 9.2 % (2.0-8.0); NEUTROPHILS # 3.7 10^3/uL (1.5-8.5); NEUTROPHILS % 67.7 % (36.0-66.0); PLATELET COUNT, AUTOMATED 253 10^3/uL (150-450); RED BLOOD COUNT 2.74 10^6/uL (4.00-5.40); WHITE BLOOD COUNT 5.5 10^3/uL (4.0-10.0)
[2022-07-22 18:19] LABS: ALBUMIN 3.4 G/DL (3.2-5.2); ALKALINE PHOSPHATASE 87 U/L (46-116); ALT/SGPT < 9 U/L (7.0-40); AST/SGOT 12 U/L (<34); BILIRUBIN,TOTAL 0.2 MG/DL (0.3-1.2); BLOOD UREA NITROGEN 37 MG/DL (9-23); CALCIUM LEVEL 8.6 MG/DL (8.3-10.6); CARBON DIOXIDE LEVEL 23 MMOL/L (20-31); CHLORIDE LEVEL 112 MMOL/L (98-107); CREATININE FOR GFR 2.01 MG/DL (0.55-1.30); GLOMERULAR FILTRATION RATE 25.9 (>39); GLUCOSE, FASTING 94 MG/DL (74-106); IRON (FE) 69 UG/DL (50-170); POTASSIUM SERUM 4.3 MMOL/L (3.5-5.1); SODIUM LEVEL 140 MMOL/L (136-145); THYROID STIMULATING HORMONE 2.308 uIU/ML (0.55-4.78); TOTAL 25(OH) VITAMIN D 10.2 NG/ML (20.0-100.0); TOTAL PROTEIN 6.6 G/DL (5.7-8.2)
[2022-07-22 18:21] LABS: VITAMIN B12 LEVEL 163 PG/ML (211-911)
== END ==
LOC: M PLALAB 16:18
PROVIDERS: ATTEND Physician Assistant
DX: R53.83 Other fatigue (principal); C53.0 Malignant neoplasm of endocervix; Z79.899 Other long term (current) drug therapy

== ENCOUNTER → 2022-07-27 | Outpatient (POV) | payer MEDICARE, BC ==
[~2022-07-27] VITALS: Ht 165.1 cm; Wt 80.0 kg
[2022-07-27 14:45] VITALS: BP 117/72
== END ==
LOC: M IRPOV 14:35
PROVIDERS: ATTEND Radiology Diagnostic Radiology
DX: Z45.2 Encounter for adjustment and management of vascular access device (principal); Z88.2 Allergy status to sulfonamides

== ENCOUNTER → 2022-08-02 | Outpatient (CLI) | payer MEDICARE, BC ==
[~2022-08-02] MED LIST changes: +LIDOCAINE 1% MDV 20ML VIAL As Ordered ONE; +MIDAZOLAM INJ 2MG/2ML VIAL As Ordered ONE; +NS 1,000 ML IV SCH; +ceFAZolin 2 GM/D5W 50 ML IV BAG As Ordered ONE; +ceFAZolin SOD 2 GM in IV 1 EA IV ONE; +diphenhydrAMINE 50MG/ML VIAL As Ordered ONE; +fentaNYL 100 MCG/2 ML INJECTION As Ordered ONE
[2022-08-02 10:30] VITALS: BP 111/53
== END ==
LOC: M IRPRO 06:51
PROVIDERS: ATTEND Radiology Diagnostic Radiology
DX: C53.0 Malignant neoplasm of endocervix (principal); Z88.2 Allergy status to sulfonamides
CPT/HCPCS: 36590; 99152; 99153; J0690; J2250; J3010

== ENCOUNTER → 2022-08-17 | Outpatient (POV) | payer MEDICARE, BC ==
[~2022-08-17] VITALS: Ht 165.1 cm; Wt 78.1 kg
[~2022-08-17] MED LIST changes: -LIDOCAINE 1% MDV 20ML VIAL As Ordered ONE; -MIDAZOLAM INJ 2MG/2ML VIAL As Ordered ONE; -NS 1,000 ML IV SCH; -ceFAZolin 2 GM/D5W 50 ML IV BAG As Ordered ONE; -ceFAZolin SOD 2 GM in IV 1 EA IV ONE; -diphenhydrAMINE 50MG/ML VIAL As Ordered ONE; -fentaNYL 100 MCG/2 ML INJECTION As Ordered ONE
[2022-08-17 14:40] VITALS: BP 124/60
== END ==
LOC: M IRPOV 14:35
PROVIDERS: ATTEND Radiology Diagnostic Radiology
DX: Z45.2 Encounter for adjustment and management of vascular access device (principal); Z88.2 Allergy status to sulfonamides

== ENCOUNTER → 2022-10-20 | Outpatient (CLI) | payer MEDICARE, BC ==
[~2022-10-20] MED LIST changes: -LIDO1CRE42 TOP; +LIDO30CR18 TOP
[2022-10-20 17:12] LABS: BASO % 0.6 % (0.0-1.0); EOS # 0.3 10^3/uL (0.0-0.5); EOS % 4.3 % (0.0-3.0); HEMATOCRIT 29.5 % (36.0-47.0); HEMOGLOBIN 9.6 g/dl (12.0-15.5); LYMPH # 1.3 10^3/uL (1.5-5.0); LYMPH % 20.3 % (24.0-44.0); MEAN CORPUSCULAR HEMOGLOBIN 32.1 pg (27.0-33.0); MEAN CORPUSCULAR HGB CONC 32.5 g/dl (32.0-36.5); MEAN CORPUSCULAR VOLUME 98.7 fl (80.0-96.0); MONO # 0.5 10^3/uL (0.0-0.8); MONO % 7.7 % (2.0-8.0); NEUTROPHILS # 4.2 10^3/uL (1.5-8.5); NEUTROPHILS % 66.8 % (36.0-66.0); PLATELET COUNT, AUTOMATED 283 10^3/uL (150-450); RED BLOOD COUNT 2.99 10^6/uL (4.00-5.40); WHITE BLOOD COUNT 6.4 10^3/uL (4.0-10.0)
[2022-10-20 17:15] LABS: INR 0.98; PROTHROMBIN TIME 13.2 SECONDS (12.5-14.5)
[2022-10-20 17:16] LABS: PARTIAL THROMBOPLASTIN TIME 27.2 SECONDS (24.8-34.2)
[2022-10-20 17:36] LABS: ALKALINE PHOSPHATASE 80 U/L (46-116); ALT/SGPT < 9 U/L (7.0-40); AST/SGOT 9 U/L (<34); BILIRUBIN,TOTAL 0.4 MG/DL (0.3-1.2); BLOOD UREA NITROGEN 58 MG/DL (9-23); CALCIUM LEVEL 9.4 MG/DL (8.3-10.6); CARBON DIOXIDE LEVEL 22 MMOL/L (20-31); CHLORIDE LEVEL 109 MMOL/L (98-107); CREATININE FOR GFR 2.36 MG/DL (0.55-1.30); GLOMERULAR FILTRATION RATE 21.5 (>39); GLUCOSE, FASTING 106 MG/DL (74-106); POTASSIUM SERUM 5.9 MMOL/L (3.5-5.1); SODIUM LEVEL 142 MMOL/L (136-145); TOTAL PROTEIN 7.5 G/DL (5.7-8.2)
[2022-10-20 17:38] LABS: PTH INTACT 429.7 PG/ML (18.5-88.0)
[2022-10-20 17:39] LABS: FERRITIN 335.6 NG/ML (7.3-270.7); TOTAL 25(OH) VITAMIN D 7.6 NG/ML (20.0-100.0)
[2022-10-20 17:41] LABS: VITAMIN B12 LEVEL 319 PG/ML (211-911)
[2022-10-20 19:25] LABS: HEMOGLOBIN A1c 5.5 % (4.0-6.0)
== END ==
LOC: M PLALAB 15:59
PROVIDERS: ATTEND Physician Assistant
DX: Z01.818 Encounter for other preprocedural examination (principal); N18.4 Chronic kidney disease, stage 4 (severe); E55.9 Vitamin D deficiency, unspecified; D64.9 Anemia, unspecified; E21.3 Hyperparathyroidism, unspecified; Z79.899 Other long term (current) drug therapy

== ENCOUNTER 2023-01-25 06:18 | Day surgery (SDC) | payer MEDICARE, BC ==
[~2023-01-25] VITALS: Ht 166.4 cm; Wt 83.6 kg
[~2023-01-25 06:18] MED LIST changes: +CYCLOPENTOLATE 1% OPHTH SOLN 2ML BTL OS SCH; +OFLOXACIN 0.3 % (OCUFLOX) OPTH SOL 5ML OS SCH; +PHENYLEPHRINE 2.5% OPHTH SOL 2ML OS SCH; +PROPARACAINE 0.5% OPHTH SOL 15ML OS ONE; +TROPICAMIDE 1% OPHTH SOLN 15ML OS SCH
[2023-01-25] MEDS ORDERED: CEFUROXIME 1MG/0.1ML INTRACAMERAL INJ As Ordered ONE (06:42)
[2023-01-25] MEDS ORDERED: LIDOCAINE 1% SDV 5ML VIAL As Ordered ONE (06:42)
[2023-01-25] MEDS ORDERED: BSS IRR 500ML/OMIDRIA 4ML IRR BAG (OR ONLY) As Ordered ONE (06:43)
[2023-01-25] MEDS ORDERED: fentaNYL 100 MCG/2 ML INJECTION As Ordered ONE (06:50)
[2023-01-25] MEDS ORDERED: MIDAZOLAM INJ 2MG/2ML VIAL As Ordered ONE (06:51)
[2023-01-25 08:14] VITALS: BP 129/59; TEMP 97.8; O2SAT 96
== END 2023-01-25 08:33 | disposition home or self-care (01) ==
LOC: M SDC 06:18
PROVIDERS: ATTEND Ophthalmology
DX: H25.12 Age-related nuclear cataract, left eye (principal); Z88.2 Allergy status to sulfonamides
CPT/HCPCS: 66984; 92015; J0697; J1097; J2250; J3010; V2787

== ENCOUNTER 2023-03-20 04:14 | Inpatient (IN) | payer MEDICARE, BC ==
[~2023-03-20] VITALS: Ht 162.6 cm; Wt 87.9 kg
[~2023-03-20 04:14] MED LIST changes: -CYCLOPENTOLATE 1% OPHTH SOLN 2ML BTL OS SCH; -OFLOXACIN 0.3 % (OCUFLOX) OPTH SOL 5ML OS SCH; -PHENYLEPHRINE 2.5% OPHTH SOL 2ML OS SCH; -PROPARACAINE 0.5% OPHTH SOL 15ML OS ONE; -TROPICAMIDE 1% OPHTH SOLN 15ML OS SCH
[2023-03-20] MEDS ORDERED: IBUP200C28 PO (04:25)
[2023-03-20] MEDS ORDERED: ONDANSETRON 4MG 2ML VIAL IV ONE (06:25)
[2023-03-20] MEDS: MORPHINE 4 MG/ML 1ML VIAL IV PRN ×2 (06:33→07:58)
[2023-03-20 06:49] LABS: BASO % 0.3 % (0.0-1.0); EOS # 0.2 10^3/uL (0.0-0.5); EOS % 2.4 % (0.0-3.0); HEMATOCRIT 25.6 % (36.0-47.0); HEMOGLOBIN 8.3 g/dl (12.0-15.5); LYMPH # 0.7 10^3/uL (1.5-5.0); LYMPH % 8.3 % (24.0-44.0); MEAN CORPUSCULAR HEMOGLOBIN 31.2 pg (27.0-33.0); MEAN CORPUSCULAR HGB CONC 32.4 g/dl (32.0-36.5); MEAN CORPUSCULAR VOLUME 96.2 fl (80.0-96.0); MONO # 0.5 10^3/uL (0.0-0.8); MONO % 6.1 % (2.0-8.0); NEUTROPHILS # 6.5 10^3/uL (1.5-8.5); NEUTROPHILS % 82.6 % (36.0-66.0); PLATELET COUNT, AUTOMATED 270 10^3/uL (150-450); RED BLOOD COUNT 2.66 10^6/uL (4.00-5.40); WHITE BLOOD COUNT 7.9 10^3/uL (4.0-10.0)
[2023-03-20] MEDS ORDERED: PERCOCET 5MG/325MG TAB PO ONE (07:45)
[2023-03-20] MEDS ORDERED: CYCLOBENZAPRINE 5MG TABLET PO ONE (07:45)
[2023-03-20] MEDS ORDERED: MORPHINE 2 MG/ML 1ML VIAL IV ONE (07:45)
[2023-03-20] MEDS ORDERED: LIDOCAINE 2% 5ML JELLY UROJET TOP ONE (07:50)
[2023-03-20 08:45] LABS: ERYTHROCYTE SEDIMENTATION RATE 72 mm/hr (0-30)
[2023-03-20] MEDS ORDERED: NS 1,000 ML IV ONE (09:10)
[2023-03-20 09:29] LABS: RSV AMPLIFICATION NEGATIVE (NEGATIVE)
[2023-03-20 09:46] LABS: LIPASE 21 U/L (12-53)
[2023-03-20 09:59] LABS: PROCALCITONIN 0.21 ng/ml
[2023-03-20 10:17] LABS: ALBUMIN 3.5 G/DL (3.2-5.2); ALKALINE PHOSPHATASE 107 U/L (46-116); ALT/SGPT < 9 U/L (7.0-40); AST/SGOT 13 U/L (<34); BILIRUBIN,DIRECT 0.1 MG/DL (<0.4); BILIRUBIN,TOTAL 0.3 MG/DL (0.3-1.2); BLOOD UREA NITROGEN 40 MG/DL (9-23); CALCIUM LEVEL 8.9 MG/DL (8.3-10.6); CARBON DIOXIDE LEVEL 20 MMOL/L (20-31); CHLORIDE LEVEL 110 MMOL/L (98-107); CREATININE FOR GFR 1.91 MG/DL (0.55-1.30); GLOMERULAR FILTRATION RATE 27.4 (>39); GLUCOSE, FASTING 102 MG/DL (74-106); POTASSIUM SERUM 6.3 MMOL/L (3.5-5.1); SODIUM LEVEL 137 MMOL/L (136-145)
[2023-03-20] MEDS ORDERED: PATIROMER SORBITEX CALCIUM 8.4 GM POWDER PACKET (VELTASSA) PO ONE ×2 (10:20→14:30)
[2023-03-20] MEDS ORDERED: HumuLIN R (REGULAR) INSULIN (NovoLIN R) **100U/ML** PER UNIT IV ONE (10:20)
[2023-03-20] MEDS ORDERED: SODIUM BICARBONATE 8.4% INJ 50ML SYRINGE IV ONE (10:20)
[2023-03-20] MEDS ORDERED: DEXTROSE 50% 50ML SYRINGE IV ONE (10:20)
[2023-03-20] MEDS ORDERED: CALCIUM GLUCONATE 1,000MG/10ML VIAL (100MG/ML) IV ONE (10:20)
[2023-03-20] MEDS ORDERED: PROHANCE 279.3MG/ML 15ML VIAL As Ordered ONE (10:48)
[2023-03-20] MEDS ORDERED: MED REC IN PROGRESS XX SCH (14:00)
[2023-03-20 14:07] LABS: CALCIUM LEVEL 9.1 MG/DL (8.3-10.6); CREATININE FOR GFR 1.98 MG/DL (0.55-1.30); GLOMERULAR FILTRATION RATE 26.3 (>39); POTASSIUM SERUM 5.5 MMOL/L (3.5-5.1)
[2023-03-20] MEDS ORDERED: GLUCOSE 4GM CHEW TABLET PO PRN (14:15)
[2023-03-20] MEDS ORDERED: DEXTROSE 50% 50ML SYRINGE IV PRN (14:15)
[2023-03-20] MEDS ORDERED: GLUCAGON INJ 1MG VIAL SC PRN (14:15)
[2023-03-20] MEDS ORDERED: LIDOCAINE 5% (LIDODERM) PATCH TD ONE (14:30)
[2023-03-20 14:44] LABS: IRON (FE) 16 UG/DL (50-170)
[2023-03-20 14:45] LABS: PERCENT SATURATION 6.2 % (13.2-45.0); TOTAL IRON BINDING CAPACITY 258 UG/DL (250-425)
[2023-03-20 14:47] LABS: FOLATE 12.68 NG/ML (>5.4); VITAMIN B12 LEVEL 287 PG/ML (211-911)
[2023-03-20] MEDS: SODIUM BICARBONATE 150 MEQ in STERILE WATER LITER BAG 1,000 ML IV SCH (15:06)
[2023-03-20] MEDS ORDERED: HOME MED LIST COMPLETE! XX SCH (15:15)
[2023-03-20] MEDS: PANTOPRAZOLE 40MG TAB (PROTONIX) PO SCH (15:46)
[2023-03-20] MEDS: ACETAMINOPHEN 500 MG TAB PO SCH ×2 (15:47→20:56)
[2023-03-20 16:32] VITALS: BP 147/67; TEMP 97.7; O2SAT 95
[2023-03-20] MEDS: **hydrALAZINE HCL** 25 MG TAB PO PRN (16:41)
[2023-03-20] MEDS: INSULIN LISPRO (NovoLOG) PER UNIT SC SCH (17:30)
[2023-03-20 20:27] VITALS: BP 123/62; TEMP 98.1; O2SAT 95
[2023-03-20] MEDS: methocarbamoL 750 MG TAB PO PRN (20:57)
[2023-03-20] MEDS: HEPARIN SOD (PORCINE) 5000UNITS/ML 1ML VIAL/SYRINGE SC SCH (20:59)
[2023-03-20] MEDS ORDERED: INSULIN LISPRO (NovoLOG) PER UNIT SC SCH (21:00)
[2023-03-20 21:46] LABS: CALCIUM LEVEL 9.1 MG/DL (8.3-10.6); CREATININE FOR GFR 2.11 MG/DL (0.55-1.30); GLOMERULAR FILTRATION RATE 24.4 (>39); POTASSIUM SERUM 5.9 MMOL/L (3.5-5.1)
[2023-03-20] MEDS ORDERED: DEXTROSE 50% 50ML SYRINGE IV STA (22:13)
[2023-03-20] MEDS ORDERED: HumuLIN R (REGULAR) INSULIN (NovoLIN R) **100U/ML** PER UNIT IV STA (22:13)
[2023-03-20] MEDS ORDERED: CALCIUM GLUCONATE 1,000 MG in D5W MINI-BAG PLUS 100 ML IV ONE (22:15)
[2023-03-21] MEDS: SODIUM BICARBONATE 150 MEQ in STERILE WATER LITER BAG 1,000 ML IV SCH (01:55)
[2023-03-21] MEDS: HEPARIN SOD (PORCINE) 5000UNITS/ML 1ML VIAL/SYRINGE SC SCH ×3 (05:28→20:01)
[2023-03-21 05:29] VITALS: BP 115/46; TEMP 97.7; O2SAT 98
[2023-03-21 06:50] LABS: HEMATOCRIT 24.1 % (36.0-47.0); HEMOGLOBIN 7.7 g/dl (12.0-15.5); MEAN CORPUSCULAR HEMOGLOBIN 31.2 pg (27.0-33.0); MEAN CORPUSCULAR VOLUME 97.6 fl (80.0-96.0); PLATELET COUNT, AUTOMATED 267 10^3/uL (150-450); RED BLOOD COUNT 2.47 10^6/uL (4.00-5.40); WHITE BLOOD COUNT 5.6 10^3/uL (4.0-10.0)
[2023-03-21 07:18] LABS: CALCIUM LEVEL 8.9 MG/DL (8.3-10.6); CREATININE FOR GFR 2.36 MG/DL (0.55-1.30); GLOMERULAR FILTRATION RATE 21.5 (>39); POTASSIUM SERUM 6.3 MMOL/L (3.5-5.1)
[2023-03-21] MEDS ORDERED: CALCIUM GLUCONATE 1,000 MG in D5W MINI-BAG PLUS 100 ML IV ONE (07:25)
[2023-03-21] MEDS ORDERED: ALBUTEROL SULFATE 2.5MG/0.5ML INH NEB SOLN NEB ONE (07:25)
[2023-03-21] MEDS: INSULIN LISPRO (NovoLOG) PER UNIT SC SCH ×2 (07:30→12:33)
[2023-03-21] MEDS ORDERED: FUROSEMIDE 40MG/4ML VIAL IV ONE (08:15)
[2023-03-21] MEDS: HYDROMORPHONE HCL 0.5 MG/ 0.5 ML SYRINGE IV PRN ×3 (08:25→22:24)
[2023-03-21] MEDS ORDERED: PATIROMER SORBITEX CALCIUM 8.4 GM POWDER PACKET (VELTASSA) PO ONE (09:00)
[2023-03-21] MEDS: ACETAMINOPHEN 500 MG TAB PO SCH ×3 (09:41→20:01)
[2023-03-21] MEDS: PANTOPRAZOLE 40MG TAB (PROTONIX) PO SCH (09:42)
[2023-03-21 10:44] VITALS: BP 174/74; TEMP 98.2; O2SAT 97
[2023-03-21] MEDS: methocarbamoL 750 MG TAB PO PRN (11:40)
[2023-03-21 12:00] VITALS: BP 139/66; TEMP 98.2; O2SAT 96
[2023-03-21 15:25] VITALS: BP 129/60; TEMP 98.1; O2SAT 97
[2023-03-21] MEDS ORDERED: CALCIUM CARBONATE 500 MG CHEW U/D PO PRN (17:25)
[2023-03-21 19:47] VITALS: BP 125/60; TEMP 98.3; O2SAT 99
[2023-03-21] MEDS: NYSTATIN 100,000 UNITS/GM TOPICAL PWD 15GM TOP SCH (20:01)
[2023-03-21] MEDS ORDERED: FUROSEMIDE 20MG/2ML VIAL IV ONE (22:00)
[2023-03-21] MEDS ORDERED: CALCIUM CARBONATE 500 MG CHEW U/D PO ONE (22:00)
[2023-03-21 23:00] VITALS: BP 166/70; TEMP 97.4; O2SAT 97
[2023-03-22 04:37] LABS: HEMATOCRIT 23.9 % (36.0-47.0); HEMOGLOBIN 7.8 g/dl (12.0-15.5); MEAN CORPUSCULAR HEMOGLOBIN 31.7 pg (27.0-33.0); MEAN CORPUSCULAR HGB CONC 32.6 g/dl (32.0-36.5); MEAN CORPUSCULAR VOLUME 97.2 fl (80.0-96.0); PLATELET COUNT, AUTOMATED 273 10^3/uL (150-450); RED BLOOD COUNT 2.46 10^6/uL (4.00-5.40); WHITE BLOOD COUNT 8.2 10^3/uL (4.0-10.0)
[2023-03-22 04:40] VITALS: BP 146/62; TEMP 97.6; O2SAT 96
[2023-03-22 05:10] LABS: CALCIUM LEVEL 9.2 MG/DL (8.3-10.6); CREATININE FOR GFR 2.65 MG/DL (0.55-1.30); GLOMERULAR FILTRATION RATE 18.8 (>39); POTASSIUM SERUM 5.4 MMOL/L (3.5-5.1)
[2023-03-22] MEDS: HEPARIN SOD (PORCINE) 5000UNITS/ML 1ML VIAL/SYRINGE SC SCH ×3 (05:53→21:10)
[2023-03-22 08:00] VITALS: BP 154/67; TEMP 98.1; O2SAT 96
[2023-03-22] MEDS: PANTOPRAZOLE 40MG TAB (PROTONIX) PO SCH (08:20)
[2023-03-22] MEDS: ACETAMINOPHEN 500 MG TAB PO SCH ×3 (09:00→20:24)
[2023-03-22] MEDS ORDERED: PATIROMER SORBITEX CALCIUM 8.4 GM POWDER PACKET (VELTASSA) PO ONE (09:00)
[2023-03-22] MEDS: NYSTATIN 100,000 UNITS/GM TOPICAL PWD 15GM TOP SCH ×2 (09:00→21:11)
[2023-03-22] MEDS ORDERED: PERCOCET 5MG/325MG TAB PO PRN (09:25)
[2023-03-22] MEDS: PERCOCET 5MG/325MG TAB PO PRN ×2 (09:35→21:51)
[2023-03-22] MEDS ORDERED: FERRIC CARBOXYMALTOSE INJ 750 MG, VIAL MATE ADAPTER 1 EACH in NS 250 ML IV ONE (11:00)
[2023-03-22] MEDS: NS 1,000 ML IV SCH ×2 (11:10→21:11)
[2023-03-22 13:44] VITALS: BP 131/58; TEMP 97.3; O2SAT 94
[2023-03-22 15:34] VITALS: BP 147/61; TEMP 98.3; O2SAT 96
[2023-03-22 20:35] VITALS: BP 172/68; TEMP 96.5; O2SAT 98
[2023-03-22] MEDS: **hydrALAZINE HCL** 25 MG TAB PO PRN (21:10)
[2023-03-23 00:40] VITALS: BP 138/79; TEMP 97.4; O2SAT 97
[2023-03-23 04:39] VITALS: BP 161/69; TEMP 98.7; O2SAT 98
[2023-03-23 05:57] LABS: HEMATOCRIT 24.1 % (36.0-47.0); HEMOGLOBIN 7.5 g/dl (12.0-15.5); MEAN CORPUSCULAR HEMOGLOBIN 30.9 pg (27.0-33.0); MEAN CORPUSCULAR HGB CONC 31.1 g/dl (32.0-36.5); MEAN CORPUSCULAR VOLUME 99.2 fl (80.0-96.0); PLATELET COUNT, AUTOMATED 238 10^3/uL (150-450); RED BLOOD COUNT 2.43 10^6/uL (4.00-5.40); WHITE BLOOD COUNT 5.5 10^3/uL (4.0-10.0)
[2023-03-23] MEDS: HEPARIN SOD (PORCINE) 5000UNITS/ML 1ML VIAL/SYRINGE SC SCH ×3 (06:18→21:27)
[2023-03-23 06:40] LABS: CALCIUM LEVEL 8.2 MG/DL (8.3-10.6); CREATININE FOR GFR 2.5 MG/DL (0.55-1.30); GLOMERULAR FILTRATION RATE 20.1 (>39); MAGNESIUM LEVEL 1.7 MG/DL (1.8-2.4); POTASSIUM SERUM 4.5 MMOL/L (3.5-5.1)
[2023-03-23 07:39] VITALS: BP 172/78; TEMP 98; O2SAT 97
[2023-03-23] MEDS ORDERED: MOM 30ML SUSPENSION UDC PO PRN (07:45)
[2023-03-23] MEDS ORDERED: **hydrALAZINE HCL** 25 MG TAB PO PRN (08:00)
[2023-03-23] MEDS ORDERED: MAG SULF 1GM/100ML (MAG RUN) 1 GM in IV 1 EA IV ONE (08:00)
[2023-03-23] MEDS: PANTOPRAZOLE 40MG TAB (PROTONIX) PO SCH (08:40)
[2023-03-23] MEDS: MIRALAX *UNIT DOSE* 17GM PACKET PO SCH ×2 (08:42→20:13)
[2023-03-23] MEDS: NS 1,000 ML IV SCH ×2 (08:43→20:14)
[2023-03-23] MEDS: NYSTATIN 100,000 UNITS/GM TOPICAL PWD 15GM TOP SCH ×2 (08:47→20:15)
[2023-03-23] MEDS: SENOKOT S TAB PO SCH ×2 (08:52→20:13)
[2023-03-23] MEDS ORDERED: **hydrALAZINE HCL** 25 MG TAB PO SCH (09:00)
[2023-03-23] MEDS: ACETAMINOPHEN 500 MG TAB PO SCH ×3 (09:00→20:14)
[2023-03-23] MEDS: PERCOCET 5MG/325MG TAB PO PRN ×2 (09:39→21:27)
[2023-03-23 11:47] VITALS: BP 159/69; TEMP 97.8; O2SAT 92
[2023-03-23 20:30] VITALS: BP 157/67; TEMP 97.9; O2SAT 95
[2023-03-24 05:15] VITALS: BP 160/67; TEMP 97.7; O2SAT 96
[2023-03-24 05:36] LABS: HEMATOCRIT 22.6 % (36.0-47.0); HEMOGLOBIN 7.2 g/dl (12.0-15.5); MEAN CORPUSCULAR HGB CONC 31.9 g/dl (32.0-36.5); MEAN CORPUSCULAR VOLUME 97.4 fl (80.0-96.0); PLATELET COUNT, AUTOMATED 240 10^3/uL (150-450); RED BLOOD COUNT 2.32 10^6/uL (4.00-5.40); WHITE BLOOD COUNT 5.4 10^3/uL (4.0-10.0)
[2023-03-24 06:16] LABS: CALCIUM LEVEL 8.1 MG/DL (8.3-10.6); CREATININE FOR GFR 2.36 MG/DL (0.55-1.30); GLOMERULAR FILTRATION RATE 21.5 (>39); MAGNESIUM LEVEL 1.8 MG/DL (1.8-2.4); POTASSIUM SERUM 4.6 MMOL/L (3.5-5.1)
[2023-03-24] MEDS: HEPARIN SOD (PORCINE) 5000UNITS/ML 1ML VIAL/SYRINGE SC SCH ×3 (06:46→21:18)
[2023-03-24] MEDS: NS 1,000 ML IV SCH ×2 (06:47→13:09)
[2023-03-24] MEDS: PERCOCET 5MG/325MG TAB PO PRN (06:47)
[2023-03-24] MEDS: MIRALAX *UNIT DOSE* 17GM PACKET PO SCH ×2 (08:06→21:18)
[2023-03-24] MEDS: PANTOPRAZOLE 40MG TAB (PROTONIX) PO SCH (08:06)
[2023-03-24] MEDS: amLODIPine 5 MG TAB PO SCH (08:06)
[2023-03-24] MEDS: SENOKOT S TAB PO SCH ×2 (08:07→21:19)
[2023-03-24] MEDS: ACETAMINOPHEN 500 MG TAB PO SCH ×3 (08:07→21:20)
[2023-03-24] MEDS: NYSTATIN 100,000 UNITS/GM TOPICAL PWD 15GM TOP SCH ×2 (08:08→21:00)
[2023-03-25 04:40] VITALS: BP 190/88; TEMP 97.9; O2SAT 96
[2023-03-25] MEDS: PERCOCET 5MG/325MG TAB PO PRN ×2 (05:00→21:17)
[2023-03-25 05:05] VITALS: BP 166/84; O2SAT 70
[2023-03-25] MEDS: HEPARIN SOD (PORCINE) 5000UNITS/ML 1ML VIAL/SYRINGE SC SCH ×3 (05:07→20:32)
[2023-03-25 06:19] LABS: HEMOGLOBIN 7.9 g/dl (12.0-15.5); MEAN CORPUSCULAR HEMOGLOBIN 31.2 pg (27.0-33.0); MEAN CORPUSCULAR HGB CONC 32.9 g/dl (32.0-36.5); MEAN CORPUSCULAR VOLUME 94.9 fl (80.0-96.0); PLATELET COUNT, AUTOMATED 275 10^3/uL (150-450); RED BLOOD COUNT 2.53 10^6/uL (4.00-5.40); WHITE BLOOD COUNT 5.6 10^3/uL (4.0-10.0)
[2023-03-25 06:51] LABS: CALCIUM LEVEL 8.8 MG/DL (8.3-10.6); CREATININE FOR GFR 2.2 MG/DL (0.55-1.30); GLOMERULAR FILTRATION RATE 23.3 (>39); MAGNESIUM LEVEL 1.7 MG/DL (1.8-2.4); POTASSIUM SERUM 4.6 MMOL/L (3.5-5.1)
[2023-03-25] MEDS ORDERED: MAGNESIUM OXIDE 400MG TAB (MAG-OX) PO ONE (07:25)
[2023-03-25] MEDS: ACETAMINOPHEN 500 MG TAB PO SCH ×3 (08:30→16:56)
[2023-03-25] MEDS: SENOKOT S TAB PO SCH ×2 (08:31→20:32)
[2023-03-25] MEDS: PANTOPRAZOLE 40MG TAB (PROTONIX) PO SCH (08:31)
[2023-03-25] MEDS: amLODIPine 5 MG TAB PO SCH (08:31)
[2023-03-25] MEDS: MIRALAX *UNIT DOSE* 17GM PACKET PO SCH ×2 (08:32→20:33)
[2023-03-25] MEDS: NYSTATIN 100,000 UNITS/GM TOPICAL PWD 15GM TOP SCH ×2 (09:00→20:33)
[2023-03-25] MEDS ORDERED: FLEET ENEMA PR PRN (11:15)
[2023-03-26] MEDS: HEPARIN SOD (PORCINE) 5000UNITS/ML 1ML VIAL/SYRINGE SC SCH ×3 (05:30→21:34)
[2023-03-26] MEDS: PERCOCET 5MG/325MG TAB PO PRN ×2 (05:31→13:45)
[2023-03-26 06:00] VITALS: BP 153/72; TEMP 97.7; O2SAT 99
[2023-03-26 07:04] LABS: HEMATOCRIT 25.7 % (36.0-47.0); HEMOGLOBIN 8.4 g/dl (12.0-15.5); MEAN CORPUSCULAR HEMOGLOBIN 31.5 pg (27.0-33.0); MEAN CORPUSCULAR HGB CONC 32.7 g/dl (32.0-36.5); MEAN CORPUSCULAR VOLUME 96.3 fl (80.0-96.0); PLATELET COUNT, AUTOMATED 327 10^3/uL (150-450); RED BLOOD COUNT 2.67 10^6/uL (4.00-5.40); WHITE BLOOD COUNT 6.6 10^3/uL (4.0-10.0)
[2023-03-26 07:30] LABS: CALCIUM LEVEL 8.9 MG/DL (8.3-10.6); CREATININE FOR GFR 2.04 MG/DL (0.55-1.30); GLOMERULAR FILTRATION RATE 25.4 (>39); MAGNESIUM LEVEL 1.8 MG/DL (1.8-2.4); POTASSIUM SERUM 4.4 MMOL/L (3.5-5.1)
[2023-03-26] MEDS: SENOKOT S TAB PO SCH ×2 (09:55→21:35)
[2023-03-26] MEDS: PANTOPRAZOLE 40MG TAB (PROTONIX) PO SCH (09:55)
[2023-03-26] MEDS: ACETAMINOPHEN 500 MG TAB PO SCH ×3 (09:56→21:35)
[2023-03-26] MEDS: NYSTATIN 100,000 UNITS/GM TOPICAL PWD 15GM TOP SCH ×2 (09:57→21:35)
[2023-03-26] MEDS: MIRALAX *UNIT DOSE* 17GM PACKET PO SCH ×2 (09:58→21:00)
[2023-03-27] MEDS: PERCOCET 5MG/325MG TAB PO PRN ×2 (01:14→23:36)
[2023-03-27 05:07] VITALS: BP 146/68; TEMP 97.4; O2SAT 98
[2023-03-27] MEDS: HEPARIN SOD (PORCINE) 5000UNITS/ML 1ML VIAL/SYRINGE SC SCH ×3 (05:45→21:05)
[2023-03-27 06:35] LABS: HEMATOCRIT 25.4 % (36.0-47.0); MEAN CORPUSCULAR HEMOGLOBIN 30.8 pg (27.0-33.0); MEAN CORPUSCULAR HGB CONC 31.5 g/dl (32.0-36.5); MEAN CORPUSCULAR VOLUME 97.7 fl (80.0-96.0); PLATELET COUNT, AUTOMATED 310 10^3/uL (150-450); WHITE BLOOD COUNT 6.3 10^3/uL (4.0-10.0)
[2023-03-27 07:00] LABS: CALCIUM LEVEL 8.8 MG/DL (8.3-10.6); CREATININE FOR GFR 2.15 MG/DL (0.55-1.30); GLOMERULAR FILTRATION RATE 23.9 (>39); POTASSIUM SERUM 4.6 MMOL/L (3.5-5.1)
[2023-03-27] MEDS: PANTOPRAZOLE 40MG TAB (PROTONIX) PO SCH (08:28)
[2023-03-27] MEDS: MIRALAX *UNIT DOSE* 17GM PACKET PO SCH ×2 (08:28→20:35)
[2023-03-27] MEDS: SENOKOT S TAB PO SCH ×2 (08:29→20:37)
[2023-03-27] MEDS: ACETAMINOPHEN 500 MG TAB PO SCH ×3 (08:29→20:36)
[2023-03-27] MEDS: NYSTATIN 100,000 UNITS/GM TOPICAL PWD 15GM TOP SCH ×2 (08:30→20:38)
[2023-03-28 05:12] VITALS: BP 144/67; TEMP 97.7; O2SAT 98
[2023-03-28] MEDS: HEPARIN SOD (PORCINE) 5000UNITS/ML 1ML VIAL/SYRINGE SC SCH ×3 (06:04→20:40)
[2023-03-28 07:47] LABS: HEMATOCRIT 26.1 % (36.0-47.0); HEMOGLOBIN 8.5 g/dl (12.0-15.5); MEAN CORPUSCULAR HEMOGLOBIN 31.5 pg (27.0-33.0); MEAN CORPUSCULAR HGB CONC 32.6 g/dl (32.0-36.5); MEAN CORPUSCULAR VOLUME 96.7 fl (80.0-96.0); PLATELET COUNT, AUTOMATED 301 10^3/uL (150-450); WHITE BLOOD COUNT 7.6 10^3/uL (4.0-10.0)
[2023-03-28 08:11] LABS: CALCIUM LEVEL 8.7 MG/DL (8.3-10.6); CREATININE FOR GFR 2.16 MG/DL (0.55-1.30); GLOMERULAR FILTRATION RATE 23.8 (>39); MAGNESIUM LEVEL 2.2 MG/DL (1.8-2.4); POTASSIUM SERUM 4.5 MMOL/L (3.5-5.1)
[2023-03-28] MEDS: MIRALAX *UNIT DOSE* 17GM PACKET PO SCH ×2 (08:51→20:39)
[2023-03-28] MEDS: SENOKOT S TAB PO SCH ×2 (08:52→20:39)
[2023-03-28] MEDS: PANTOPRAZOLE 40MG TAB (PROTONIX) PO SCH (08:52)
[2023-03-28] MEDS: ACETAMINOPHEN 500 MG TAB PO SCH ×3 (08:52→20:39)
[2023-03-28] MEDS: NYSTATIN 100,000 UNITS/GM TOPICAL PWD 15GM TOP SCH ×2 (08:56→20:39)
[2023-03-28] MEDS: PERCOCET 5MG/325MG TAB PO PRN (13:48)
[2023-03-29] MEDS: PERCOCET 5MG/325MG TAB PO PRN (03:03)
[2023-03-29 05:19] VITALS: BP 132/61; TEMP 97.7; O2SAT 97
[2023-03-29] MEDS: HEPARIN SOD (PORCINE) 5000UNITS/ML 1ML VIAL/SYRINGE SC SCH ×2 (05:22→13:49)
[2023-03-29 06:48] LABS: BASO % 0.3 % (0.0-1.0); EOS # 0.5 10^3/uL (0.0-0.5); EOS % 6.2 % (0.0-3.0); HEMATOCRIT 25.6 % (36.0-47.0); HEMOGLOBIN 8.2 g/dl (12.0-15.5); LYMPH # 1.1 10^3/uL (1.5-5.0); LYMPH % 14.3 % (24.0-44.0); MEAN CORPUSCULAR HEMOGLOBIN 31.4 pg (27.0-33.0); MEAN CORPUSCULAR VOLUME 98.1 fl (80.0-96.0); MONO # 0.5 10^3/uL (0.0-0.8); MONO % 7.1 % (2.0-8.0); NEUTROPHILS # 5.5 10^3/uL (1.5-8.5); NEUTROPHILS % 71.6 % (36.0-66.0); PLATELET COUNT, AUTOMATED 304 10^3/uL (150-450); RED BLOOD COUNT 2.61 10^6/uL (4.00-5.40); WHITE BLOOD COUNT 7.6 10^3/uL (4.0-10.0)
[2023-03-29 07:08] LABS: CREATININE FOR GFR 2.22 MG/DL (0.55-1.30); GLOMERULAR FILTRATION RATE 23.1 (>39); MAGNESIUM LEVEL 2.2 MG/DL (1.8-2.4); POTASSIUM SERUM 4.7 MMOL/L (3.5-5.1)
[2023-03-29 07:38] VITALS: BP 132/61
[2023-03-29] MEDS: PANTOPRAZOLE 40MG TAB (PROTONIX) PO SCH (07:38)
[2023-03-29] MEDS: SENOKOT S TAB PO SCH (07:38)
[2023-03-29] MEDS: ACETAMINOPHEN 500 MG TAB PO SCH (07:38)
[2023-03-29] MEDS: MIRALAX *UNIT DOSE* 17GM PACKET PO SCH (07:38)
[2023-03-29] MEDS: NYSTATIN 100,000 UNITS/GM TOPICAL PWD 15GM TOP SCH (07:39)
[2023-03-29] MEDS ORDERED: METH-1165 PO (12:32)
[2023-03-29] MEDS ORDERED: SENN-52 PO (12:32)
[2023-03-29] MEDS ORDERED: HYDR25TA PO (12:32)
[2023-03-29] MEDS ORDERED: AMLO1TAB25 PO (12:32)
== END 2023-03-29 14:40 | DRG 552 ==
LOC: M ED 04:14 → M ED INP 14:07 → ENRESERV 15:38 → M MS5PR 16:25 → ENRESERV 16:31 → M PCU 03-21 10:06 → M MS5PR 03-23 20:30
PROVIDERS: ADMIT Internal Medicine; ATTEND Internal Medicine
DX: M48.061 Spinal stenosis, lumbar region without neurogenic claudication (principal); N18.4 Chronic kidney disease, stage 4 (severe); N17.9 Acute kidney failure, unspecified; E11.22 Type 2 diabetes mellitus with diabetic chronic kidney disease; R33.9 Retention of urine, unspecified; I12.9 Hypertensive chronic kidney disease with stage 1 through stage 4 chronic kidney disease, or unspecified chronic kidney disease; E61.1 Iron deficiency; M85.80 Other specified disorders of bone density and structure, unspecified site; M47.896 Other spondylosis, lumbar region; N13.9 Obstructive and reflux uropathy, unspecified; M54.50 Low back pain, unspecified; E11.649 Type 2 diabetes mellitus with hypoglycemia without coma; E87.5 Hyperkalemia; D63.1 Anemia in chronic kidney disease; Z88.2 Allergy status to sulfonamides; Z91.048 Other nonmedicinal substance allergy status; Z92.21 Personal history of antineoplastic chemotherapy; Z92.3 Personal history of irradiation; Z85.41 Personal history of malignant neoplasm of cervix uteri; Z20.822 Contact with and (suspected) exposure to COVID-19

== ENCOUNTER 2023-04-19 11:02 | Inpatient (IN) | payer MEDICARE, BC ==
[~2023-04-19] VITALS: Ht 165.1 cm; Wt 83.3 kg
[~2023-04-19 11:02] MED LIST changes: +AMLO1TAB25 PO; +HYDR25TA PO; +IBUP200C28 PO; +METH-1165 PO; +SENN-52 PO
[2023-04-19] MEDS ORDERED: diazePAM 10MG/2ML SYRINGE IM ONE (12:15)
[2023-04-19] MEDS ORDERED: KETOROLAC 30 MG/ML 1ML VIAL IM ONE (12:15)
[2023-04-19] MEDS ORDERED: HOME MED LIST COMPLETE! XX SCH (14:55)
[2023-04-19 15:49] LABS: BASO % 0.4 % (0.0-1.0); EOS # 0.1 10^3/uL (0.0-0.5); EOS % 1.6 % (0.0-3.0); HEMATOCRIT 26.9 % (36.0-47.0); HEMOGLOBIN 8.8 g/dl (12.0-15.5); LYMPH % 11.5 % (24.0-44.0); MEAN CORPUSCULAR HEMOGLOBIN 31.7 pg (27.0-33.0); MEAN CORPUSCULAR HGB CONC 32.7 g/dl (32.0-36.5); MEAN CORPUSCULAR VOLUME 96.8 fl (80.0-96.0); MONO # 0.5 10^3/uL (0.0-0.8); MONO % 6.2 % (2.0-8.0); NEUTROPHILS # 6.7 10^3/uL (1.5-8.5); NEUTROPHILS % 80.1 % (36.0-66.0); PLATELET COUNT, AUTOMATED 283 10^3/uL (150-450); RED BLOOD COUNT 2.78 10^6/uL (4.00-5.40); WHITE BLOOD COUNT 8.3 10^3/uL (4.0-10.0)
[2023-04-19 16:10] LABS: ALBUMIN 3.3 G/DL (3.2-5.2); ALKALINE PHOSPHATASE 90 U/L (46-116); ALT/SGPT < 9 U/L (7.0-40); AST/SGOT 14 U/L (<34); BILIRUBIN,DIRECT < 0.1 MG/DL (<0.4); BILIRUBIN,TOTAL 0.2 MG/DL (0.3-1.2); BLOOD UREA NITROGEN 41 MG/DL (9-23); CALCIUM LEVEL 8.9 MG/DL (8.3-10.6); CARBON DIOXIDE LEVEL 21 MMOL/L (20-31); CHLORIDE LEVEL 112 MMOL/L (98-107); CREATININE FOR GFR 2.16 MG/DL (0.55-1.30); GLOMERULAR FILTRATION RATE 23.8 (>39); GLUCOSE, FASTING 122 MG/DL (74-106); SODIUM LEVEL 141 MMOL/L (136-145); TOTAL PROTEIN 6.4 G/DL (5.7-8.2)
[2023-04-19] MEDS ORDERED: GABAPENTIN 100 MG CAP PO ONE (16:40)
[2023-04-19] MEDS ORDERED: ACETAMINOPHEN TAB 650MG DOSE (2X325MG) PO PRN (16:40)
[2023-04-19] MEDS ORDERED: traMADol 50 MG TAB PO PRN (16:40)
[2023-04-19] MEDS ORDERED: PILL CUTTER 1 EACH XX PRN (18:10)
[2023-04-19 19:20] VITALS: BP 124/60; TEMP 97.7; O2SAT 96
[2023-04-19 20:58] VITALS: BP 105/57; TEMP 98.9; O2SAT 97
[2023-04-19] MEDS ORDERED: oxyCODONE 5MG TAB PO SCH (21:00)
[2023-04-19 22:05] VITALS: BP 103/52
[2023-04-19 22:11] LABS: RSV AMPLIFICATION NEGATIVE (NEGATIVE)
[2023-04-19] MEDS: tiZANidine 4 MG TAB PO SCH (22:18)
[2023-04-19] MEDS: HEPARIN SOD (PORCINE) 5000UNITS/ML 1ML VIAL/SYRINGE SC SCH (22:18)
[2023-04-19] MEDS: PERCOCET 5MG/325MG TAB PO SCH (22:18)
[2023-04-19] MEDS ORDERED: NS 500 ML IV ONE (22:30)
[2023-04-19] MEDS ORDERED: diphenhydrAMINE CREAM 30GM TOP PRN (22:40)
[2023-04-19] MEDS ORDERED: diphenhydrAMINE 25MG CAP PO ONE (23:00)
[2023-04-19 23:32] VITALS: BP 117/76
[2023-04-19] MEDS: NYSTATIN 100,000 UNITS/GM TOPICAL PWD 15GM TOP SCH (23:34)
[2023-04-19] MEDS: NS 1,000 ML IV SCH (23:35)
[2023-04-19] MEDS: cefTRIAXone SOD 1 GM in D5W MINI-BAG PLUS 50 ML IV SCH (23:35)
[2023-04-20 00:05] VITALS: BP 100/44; TEMP 98.6; O2SAT 97
[2023-04-20 02:23] VITALS: BP 117/57
[2023-04-20 05:06] VITALS: BP 119/55; TEMP 98.9; O2SAT 96
[2023-04-20 07:06] LABS: BASO % 0.4 % (0.0-1.0); EOS # 0.3 10^3/uL (0.0-0.5); EOS % 4.4 % (0.0-3.0); HEMATOCRIT 24.3 % (36.0-47.0); HEMOGLOBIN 7.9 g/dl (12.0-15.5); LYMPH # 0.9 10^3/uL (1.5-5.0); LYMPH % 12.9 % (24.0-44.0); MEAN CORPUSCULAR HEMOGLOBIN 31.9 pg (27.0-33.0); MEAN CORPUSCULAR HGB CONC 32.5 g/dl (32.0-36.5); MONO # 0.5 10^3/uL (0.0-0.8); MONO % 7.6 % (2.0-8.0); NEUTROPHILS # 5.1 10^3/uL (1.5-8.5); NEUTROPHILS % 74.4 % (36.0-66.0); PLATELET COUNT, AUTOMATED 241 10^3/uL (150-450); RED BLOOD COUNT 2.48 10^6/uL (4.00-5.40); WHITE BLOOD COUNT 6.8 10^3/uL (4.0-10.0)
[2023-04-20 07:33] LABS: CALCIUM LEVEL 8.7 MG/DL (8.3-10.6); CREATININE FOR GFR 2.42 MG/DL (0.55-1.30); GLOMERULAR FILTRATION RATE 20.9 (>39); POTASSIUM SERUM 4.1 MMOL/L (3.5-5.1)
[2023-04-20] MEDS: NS 1,000 ML IV SCH (08:59)
[2023-04-20] MEDS: PERCOCET 5MG/325MG TAB PO SCH ×4 (09:00→22:41)
[2023-04-20] MEDS: GABAPENTIN 100 MG CAP PO SCH ×3 (09:13→22:41)
[2023-04-20] MEDS: NYSTATIN 100,000 UNITS/GM TOPICAL PWD 15GM TOP SCH (09:14)
[2023-04-20] MEDS: tiZANidine 4 MG TAB PO SCH ×2 (09:15→22:41)
[2023-04-20] MEDS: HEPARIN SOD (PORCINE) 5000UNITS/ML 1ML VIAL/SYRINGE SC SCH ×2 (09:15→22:57)
[2023-04-20] MEDS: SENOKOT S TAB PO SCH ×2 (13:19→22:57)
[2023-04-20] MEDS: LACTULOSE 20GM/30ML SYRUP UDC PO SCH ×2 (13:21→22:44)
[2023-04-20 14:00] VITALS: BP 117/54; TEMP 97.9; O2SAT 95
[2023-04-20] MEDS ORDERED: oxyBUTYnin 5 MG TAB PO PRN (14:15)
[2023-04-20 20:45] VITALS: BP 114/54; TEMP 98.3; O2SAT 95
[2023-04-20] MEDS: cefTRIAXone SOD 1 GM in D5W MINI-BAG PLUS 50 ML IV SCH (22:57)
[2023-04-21 05:44] LABS: BASO % 0.4 % (0.0-1.0); EOS # 0.3 10^3/uL (0.0-0.5); EOS % 5.1 % (0.0-3.0); HEMATOCRIT 24.2 % (36.0-47.0); HEMOGLOBIN 7.7 g/dl (12.0-15.5); LYMPH % 20.6 % (24.0-44.0); MEAN CORPUSCULAR HEMOGLOBIN 31.6 pg (27.0-33.0); MEAN CORPUSCULAR HGB CONC 31.8 g/dl (32.0-36.5); MEAN CORPUSCULAR VOLUME 99.2 fl (80.0-96.0); MONO # 0.4 10^3/uL (0.0-0.8); MONO % 7.5 % (2.0-8.0); NEUTROPHILS # 3.3 10^3/uL (1.5-8.5); PLATELET COUNT, AUTOMATED 233 10^3/uL (150-450); RED BLOOD COUNT 2.44 10^6/uL (4.00-5.40); WHITE BLOOD COUNT 5.1 10^3/uL (4.0-10.0)
[2023-04-21 05:53] VITALS: BP 125/57; TEMP 98.4; O2SAT 94
[2023-04-21 06:09] LABS: CALCIUM LEVEL 8.7 MG/DL (8.3-10.6); CREATININE FOR GFR 2.42 MG/DL (0.55-1.30); GLOMERULAR FILTRATION RATE 20.9 (>39); PERCENT SATURATION 35.3 % (13.2-45.0); POTASSIUM SERUM 4.4 MMOL/L (3.5-5.1)
[2023-04-21 06:11] LABS: FERRITIN 619.5 NG/ML (7.3-270.7); FOLATE 7.52 NG/ML (>5.4)
[2023-04-21] MEDS: GABAPENTIN 100 MG CAP PO SCH (07:36)
[2023-04-21] MEDS: HEPARIN SOD (PORCINE) 5000UNITS/ML 1ML VIAL/SYRINGE SC SCH (07:36)
[2023-04-21] MEDS: SENOKOT S TAB PO SCH (07:36)
[2023-04-21] MEDS: PERCOCET 5MG/325MG TAB PO SCH (07:37)
[2023-04-21] MEDS: tiZANidine 4 MG TAB PO SCH (07:37)
[2023-04-21] MEDS: LACTULOSE 20GM/30ML SYRUP UDC PO SCH (07:38)
[2023-04-21] MEDS: NYSTATIN 100,000 UNITS/GM TOPICAL PWD 15GM TOP SCH (07:38)
[2023-04-21] MEDS ORDERED: TIZA10TA PO (12:23)
[2023-04-21] MEDS ORDERED: SENN-52 PO (12:23)
[2023-04-21] MEDS ORDERED: OXYB5TAB11 PO (12:23)
[2023-04-21] MEDS ORDERED: OXYC-517 PO (12:23)
[2023-04-21] MEDS ORDERED: CEFD1CAP9 PO (12:23)
[2023-04-21] MEDS ORDERED: GABA-1171 PO (12:23)
== END 2023-04-21 14:16 | DRG 543 ==
LOC: M ED 11:02 → EDBD 11:02 → M ED INP 16:39 → M MSPAV 19:15 → OBSVTOIN 04-20 11:58
PROVIDERS: ADMIT Internal Medicine Nephrology; ATTEND Internal Medicine Nephrology
DX: M48.48XA Fatigue fracture of vertebra, sacral and sacrococcygeal region, initial encounter for fracture (principal); N18.4 Chronic kidney disease, stage 4 (severe); N39.0 Urinary tract infection, site not specified; D63.1 Anemia in chronic kidney disease; E61.1 Iron deficiency; B96.1 Klebsiella pneumoniae [K. pneumoniae] as the cause of diseases classified elsewhere; M48.061 Spinal stenosis, lumbar region without neurogenic claudication; I44.0 Atrioventricular block, first degree; M16.0 Bilateral primary osteoarthritis of hip; E11.22 Type 2 diabetes mellitus with diabetic chronic kidney disease; I12.9 Hypertensive chronic kidney disease with stage 1 through stage 4 chronic kidney disease, or unspecified chronic kidney disease; Z98.42 Cataract extraction status, left eye; Z80.3 Family history of malignant neoplasm of breast; Z88.2 Allergy status to sulfonamides; Z91.048 Other nonmedicinal substance allergy status; Z20.822 Contact with and (suspected) exposure to COVID-19

== ENCOUNTER → 2023-04-25 | Outpatient (REF) ==
[~2023-04-25] MED LIST changes: +CEFD1CAP9 PO; +GABA-1171 PO; +OXYB5TAB11 PO; +OXYC-517 PO; +TIZA10TA PO
[2023-04-25 10:14] LABS: HEMATOCRIT 25.6 % (36.0-47.0); MEAN CORPUSCULAR HEMOGLOBIN 30.9 pg (27.0-33.0); MEAN CORPUSCULAR HGB CONC 31.3 g/dl (32.0-36.5); MEAN CORPUSCULAR VOLUME 98.8 fl (80.0-96.0); PLATELET COUNT, AUTOMATED 250 10^3/uL (150-450); RED BLOOD COUNT 2.59 10^6/uL (4.00-5.40); WHITE BLOOD COUNT 5.6 10^3/uL (4.0-10.0)
[2023-04-25 10:41] LABS: CALCIUM LEVEL 8.6 MG/DL (8.3-10.6); CREATININE FOR GFR 2.17 MG/DL (0.55-1.30); GLOMERULAR FILTRATION RATE 23.7 (>39); POTASSIUM SERUM 4.2 MMOL/L (3.5-5.1)
== END ==
PROVIDERS: ATTEND Physician Assistant
DX: D64.9 Anemia, unspecified (principal)

== ENCOUNTER → 2023-04-27 | Outpatient (REF) ==
[2023-04-27 11:15] LABS: HEMATOCRIT 25.8 % (36.0-47.0); MEAN CORPUSCULAR HEMOGLOBIN 31.5 pg (27.0-33.0); MEAN CORPUSCULAR VOLUME 101.6 fl (80.0-96.0); PLATELET COUNT, AUTOMATED 248 10^3/uL (150-450); RED BLOOD COUNT 2.54 10^6/uL (4.00-5.40); WHITE BLOOD COUNT 4.9 10^3/uL (4.0-10.0)
[2023-04-27 11:51] LABS: CALCIUM LEVEL 8.6 MG/DL (8.3-10.6); CREATININE FOR GFR 2.18 MG/DL (0.55-1.30); GLOMERULAR FILTRATION RATE 23.5 (>39); POTASSIUM SERUM 4.8 MMOL/L (3.5-5.1)
== END ==
PROVIDERS: ATTEND Physician Assistant
DX: D64.9 Anemia, unspecified (principal)

== ENCOUNTER → 2023-05-02 | Outpatient (REF) ==
[2023-05-02 11:15] LABS: HEMATOCRIT 23.9 % (36.0-47.0); HEMOGLOBIN 7.4 g/dl (12.0-15.5); MEAN CORPUSCULAR HEMOGLOBIN 31.8 pg (27.0-33.0); MEAN CORPUSCULAR VOLUME 102.6 fl (80.0-96.0); PLATELET COUNT, AUTOMATED 240 10^3/uL (150-450); RED BLOOD COUNT 2.33 10^6/uL (4.00-5.40); WHITE BLOOD COUNT 5.7 10^3/uL (4.0-10.0)
[2023-05-02 11:39] LABS: CALCIUM LEVEL 8.6 MG/DL (8.3-10.6); CREATININE FOR GFR 2.51 MG/DL (0.55-1.30); POTASSIUM SERUM 4.7 MMOL/L (3.5-5.1)
== END ==
PROVIDERS: ATTEND Physician Assistant
DX: D64.9 Anemia, unspecified (principal)

== ENCOUNTER → 2023-05-04 | Outpatient (REF) ==
[~2023-05-04] MED LIST changes: -HYDR25TA PO; +HYDR25TA88 PO; -OXYB5TAB11 PO; +OXYB5TAB14 PO
== END ==
PROVIDERS: ATTEND Physician Assistant
DX: D64.9 Anemia, unspecified (principal); Z53.9 Procedure and treatment not carried out, unspecified reason

== ENCOUNTER → 2023-05-09 | Outpatient (REF) ==
[~2023-05-09] MED LIST changes: +HYDR25TA PO; -HYDR25TA88 PO; +OXYB5TAB11 PO; -OXYB5TAB14 PO
[2023-05-09 11:32] LABS: BASO % 0.6 % (0.0-1.0); EOS # 0.4 10^3/uL (0.0-0.5); EOS % 6.5 % (0.0-3.0); HEMATOCRIT 26.6 % (36.0-47.0); HEMOGLOBIN 8.3 g/dl (12.0-15.5); LYMPH # 0.6 10^3/uL (1.5-5.0); LYMPH % 9.3 % (24.0-44.0); MEAN CORPUSCULAR HEMOGLOBIN 31.9 pg (27.0-33.0); MEAN CORPUSCULAR HGB CONC 31.2 g/dl (32.0-36.5); MEAN CORPUSCULAR VOLUME 102.3 fl (80.0-96.0); MONO # 0.4 10^3/uL (0.0-0.8); NEUTROPHILS # 4.9 10^3/uL (1.5-8.5); NEUTROPHILS % 77.3 % (36.0-66.0); PLATELET COUNT, AUTOMATED 260 10^3/uL (150-450); WHITE BLOOD COUNT 6.3 10^3/uL (4.0-10.0)
[2023-05-09 12:01] LABS: ALBUMIN 2.8 G/DL (3.2-5.2); CALCIUM LEVEL 8.7 MG/DL (8.3-10.6); CREATININE FOR GFR 2.46 MG/DL (0.55-1.30); GLOMERULAR FILTRATION RATE 20.5 (>39); MAGNESIUM LEVEL 2.2 MG/DL (1.8-2.4); PHOSPHORUS LEVEL 4.1 MG/DL (2.4-5.1); POTASSIUM SERUM 4.4 MMOL/L (3.5-5.1)
== END ==
PROVIDERS: ATTEND Physician Assistant
DX: D64.9 Anemia, unspecified (principal)

== ENCOUNTER → 2023-05-13 | Outpatient (CLI) | payer BC, MEDICARE ==
[~2023-05-13] MED LIST changes: -HYDR25TA PO; +HYDR25TA88 PO; -OXYB5TAB11 PO; +OXYB5TAB14 PO
== END ==
LOC: M ONCR 10:28
PROVIDERS: ATTEND General Practice
DX: Z01.89 Encounter for other specified special examinations (principal)

== ENCOUNTER → 2023-05-16 | Outpatient (REF) ==
[2023-05-16 10:47] LABS: HEMATOCRIT 27.5 % (36.0-47.0); HEMOGLOBIN 8.6 g/dl (12.0-15.5); MEAN CORPUSCULAR HEMOGLOBIN 31.6 pg (27.0-33.0); MEAN CORPUSCULAR HGB CONC 31.3 g/dl (32.0-36.5); MEAN CORPUSCULAR VOLUME 101.1 fl (80.0-96.0); PLATELET COUNT, AUTOMATED 278 10^3/uL (150-450); RED BLOOD COUNT 2.72 10^6/uL (4.00-5.40); WHITE BLOOD COUNT 5.4 10^3/uL (4.0-10.0)
[2023-05-16 11:17] LABS: CREATININE FOR GFR 2.38 MG/DL (0.55-1.30); GLOMERULAR FILTRATION RATE 21.3 (>39); POTASSIUM SERUM 4.5 MMOL/L (3.5-5.1)
== END ==
PROVIDERS: ATTEND Physician Assistant
DX: D64.9 Anemia, unspecified (principal)

== ENCOUNTER → 2023-05-30 | Outpatient (REF) ==
[2023-05-30 10:45] LABS: HEMATOCRIT 30.1 % (36.0-47.0); HEMOGLOBIN 9.5 g/dl (12.0-15.5); MEAN CORPUSCULAR HEMOGLOBIN 31.4 pg (27.0-33.0); MEAN CORPUSCULAR HGB CONC 31.6 g/dl (32.0-36.5); MEAN CORPUSCULAR VOLUME 99.3 fl (80.0-96.0); PLATELET COUNT, AUTOMATED 265 10^3/uL (150-450); RED BLOOD COUNT 3.03 10^6/uL (4.00-5.40); WHITE BLOOD COUNT 6.4 10^3/uL (4.0-10.0)
[2023-05-30 11:02] LABS: CALCIUM LEVEL 8.8 MG/DL (8.3-10.6); CREATININE FOR GFR 2.11 MG/DL (0.55-1.30); GLOMERULAR FILTRATION RATE 24.4 (>39); POTASSIUM SERUM 4.5 MMOL/L (3.5-5.1)
== END ==
PROVIDERS: ATTEND Internal Medicine
DX: D64.9 Anemia, unspecified (principal)

== ENCOUNTER → 2023-06-08 | Outpatient (CLI) | payer MEDICARE, BC | LOC: M WHC 09:50 | PROVIDERS: ATTEND Physician Assistant | DX: M81.0 Age-related osteoporosis without current pathological fracture (principal) ==

== ENCOUNTER → 2023-06-16 | Outpatient (CLI) | payer MEDICARE, BC | LOC: M ONCR 11:09 | PROVIDERS: ATTEND General Practice | DX: C53.0 Malignant neoplasm of endocervix (principal); M48.48XA Fatigue fracture of vertebra, sacral and sacrococcygeal region, initial encounter for fracture; Z71.2 Person consulting for explanation of examination or test findings; Z79.899 Other long term (current) drug therapy; Z87.891 Personal history of nicotine dependence; Z88.1 Allergy status to other antibiotic agents; Z88.2 Allergy status to sulfonamides; J30.89 Other allergic rhinitis; J30.2 Other seasonal allergic rhinitis; Z92.21 Personal history of antineoplastic chemotherapy; Z92.29 Personal history of other drug therapy; Z92.23 Personal history of estrogen therapy ==

== ENCOUNTER → 2023-06-17 | Outpatient (CLI) | payer MEDICARE, BC | LOC: M PAIN 13:00 | PROVIDERS: ATTEND Nurse Practitioner Family | DX: M46.1 Sacroiliitis, not elsewhere classified (principal); G89.29 Other chronic pain; E11.22 Type 2 diabetes mellitus with diabetic chronic kidney disease; N18.9 Chronic kidney disease, unspecified; Z79.899 Other long term (current) drug therapy; Z88.2 Allergy status to sulfonamides ==

== ENCOUNTER → 2023-06-20 | Outpatient (CLI) | payer MEDICARE, BC | LOC: M RAD 12:51 | PROVIDERS: ATTEND General Practice | DX: C53.9 Malignant neoplasm of cervix uteri, unspecified (principal); S32.19XA Other fracture of sacrum, initial encounter for closed fracture; S32.059A Unspecified fracture of fifth lumbar vertebra, initial encounter for closed fracture; Y93.9 Activity, unspecified; Y92.9 Unspecified place or not applicable ==

== ENCOUNTER → 2023-06-29 | Outpatient (REF) | payer MEDICARE, BC ==
[2023-06-29 14:20] LABS: HEMATOCRIT 30.4 % (36.0-47.0); HEMOGLOBIN 9.6 g/dl (12.0-15.5); MEAN CORPUSCULAR HEMOGLOBIN 31.1 pg (27.0-33.0); MEAN CORPUSCULAR HGB CONC 31.6 g/dl (32.0-36.5); MEAN CORPUSCULAR VOLUME 98.4 fl (80.0-96.0); PLATELET COUNT, AUTOMATED 239 10^3/uL (150-450); RED BLOOD COUNT 3.09 10^6/uL (4.00-5.40); WHITE BLOOD COUNT 6.6 10^3/uL (4.0-10.0)
[2023-06-29 14:50] LABS: CREATININE FOR GFR 2.27 MG/DL (0.55-1.30); GLOMERULAR FILTRATION RATE 22.5 (>39); POTASSIUM SERUM 4.7 MMOL/L (3.5-5.1)
== END ==
PROVIDERS: ATTEND Internal Medicine
DX: D64.9 Anemia, unspecified (principal)

== ENCOUNTER → 2023-08-01 | Outpatient (REF) | payer MEDICARE, BC ==
[~2023-08-01] MED LIST changes: +BISA10SU PR; +DOXY-440 PO; -DOXY-444 PO; +DULO1CAP5; +FLEEENE12 PR; +MILKSUS7 PO
[2023-08-01 11:19] LABS: HEMATOCRIT 31.9 % (36.0-47.0); HEMOGLOBIN 10.1 g/dl (12.0-15.5); MEAN CORPUSCULAR HEMOGLOBIN 30.6 pg (27.0-33.0); MEAN CORPUSCULAR HGB CONC 31.7 g/dl (32.0-36.5); MEAN CORPUSCULAR VOLUME 96.7 fl (80.0-96.0); PLATELET COUNT, AUTOMATED 257 10^3/uL (150-450); WHITE BLOOD COUNT 5.1 10^3/uL (4.0-10.0)
[2023-08-01 12:06] LABS: CALCIUM LEVEL 7.3 MG/DL (8.3-10.6); CREATININE FOR GFR 1.76 MG/DL (0.55-1.30); GLOMERULAR FILTRATION RATE 30.1 (>39); POTASSIUM SERUM 4.3 MMOL/L (3.5-5.1)
== END ==
PROVIDERS: ATTEND Internal Medicine
DX: D64.9 Anemia, unspecified (principal)

== ENCOUNTER → 2023-09-05 | Outpatient (REF) | payer MEDICARE, BC ==
[2023-09-05 12:29] LABS: BASO % 0.6 % (0.0-1.0); EOS # 0.3 10^3/uL (0.0-0.5); EOS % 5.7 % (0.0-3.0); HEMATOCRIT 30.3 % (36.0-47.0); HEMOGLOBIN 9.7 g/dl (12.0-15.5); LYMPH # 0.8 10^3/uL (1.5-5.0); LYMPH % 14.9 % (24.0-44.0); MEAN CORPUSCULAR HEMOGLOBIN 30.8 pg (27.0-33.0); MEAN CORPUSCULAR VOLUME 96.2 fl (80.0-96.0); MONO # 0.3 10^3/uL (0.0-0.8); MONO % 5.7 % (2.0-8.0); NEUTROPHILS # 3.8 10^3/uL (1.5-8.5); NEUTROPHILS % 72.9 % (36.0-66.0); PLATELET COUNT, AUTOMATED 273 10^3/uL (150-450); RED BLOOD COUNT 3.15 10^6/uL (4.00-5.40); WHITE BLOOD COUNT 5.2 10^3/uL (4.0-10.0)
[2023-09-05 13:01] LABS: FERRITIN 343.4 NG/ML (7.3-270.7)
[2023-09-05 13:04] LABS: ALBUMIN 2.8 G/DL (3.2-5.2); CALCIUM LEVEL 7.9 MG/DL (8.3-10.6); CREATININE FOR GFR 1.84 MG/DL (0.55-1.30); GLOMERULAR FILTRATION RATE 28.6 (>39); MAGNESIUM LEVEL 2.2 MG/DL (1.8-2.4); PERCENT SATURATION 25.1 % (13.2-45.0); PHOSPHORUS LEVEL 2.3 MG/DL (2.4-5.1); POTASSIUM SERUM 4.8 MMOL/L (3.5-5.1)
== END ==
PROVIDERS: ATTEND Internal Medicine
DX: D64.9 Anemia, unspecified (principal)

== ENCOUNTER → 2023-09-28 | Outpatient (REF) | payer MEDICARE, BC ==
[2023-09-28 10:18] LABS: HEMATOCRIT 30.2 % (36.0-47.0); HEMOGLOBIN 9.7 g/dl (12.0-15.5); MEAN CORPUSCULAR HEMOGLOBIN 30.8 pg (27.0-33.0); MEAN CORPUSCULAR HGB CONC 32.1 g/dl (32.0-36.5); MEAN CORPUSCULAR VOLUME 95.9 fl (80.0-96.0); PLATELET COUNT, AUTOMATED 249 10^3/uL (150-450); RED BLOOD COUNT 3.15 10^6/uL (4.00-5.40); WHITE BLOOD COUNT 5.8 10^3/uL (4.0-10.0)
== END ==
PROVIDERS: ATTEND Internal Medicine
DX: D64.9 Anemia, unspecified (principal)

== ENCOUNTER → 2023-10-10 | Outpatient (REF) | payer MEDICARE, BC ==
[2023-10-10 12:46] LABS: CALCIUM LEVEL 8.3 MG/DL (8.3-10.6); CREATININE FOR GFR 2.13 MG/DL (0.55-1.30); GLOMERULAR FILTRATION RATE 24.2 (>39); POTASSIUM SERUM 4.6 MMOL/L (3.5-5.1)
== END ==
PROVIDERS: ATTEND Physician Assistant
DX: I48.91 Unspecified atrial fibrillation (principal)

== ENCOUNTER → 2023-11-02 | Outpatient (REF) | payer MEDICARE, BC ==
[2023-11-02 10:42] LABS: HEMATOCRIT 29.8 % (36.0-47.0); HEMOGLOBIN 9.3 g/dl (12.0-15.5); MEAN CORPUSCULAR HEMOGLOBIN 30.9 pg (27.0-33.0); MEAN CORPUSCULAR HGB CONC 31.2 g/dl (32.0-36.5); PLATELET COUNT, AUTOMATED 291 10^3/uL (150-450); RED BLOOD COUNT 3.01 10^6/uL (4.00-5.40); WHITE BLOOD COUNT 6.4 10^3/uL (4.0-10.0)
[2023-11-02 11:13] LABS: CALCIUM LEVEL 8.6 MG/DL (8.3-10.6); CREATININE FOR GFR 2.83 MG/DL (0.55-1.30); GLOMERULAR FILTRATION RATE 17.4 (>39); POTASSIUM SERUM 4.4 MMOL/L (3.5-5.1)
== END ==
PROVIDERS: ATTEND Internal Medicine
DX: D64.9 Anemia, unspecified (principal)

== ENCOUNTER → 2023-11-21 | Outpatient (REF) | payer MEDICARE, BC ==
[2023-11-21 12:35] LABS: BASO # 0.1 10^3/uL (0.0-0.2); BASO % 0.7 % (0.0-1.0); EOS # 0.4 10^3/uL (0.0-0.5); EOS % 6.4 % (0.0-3.0); HEMATOCRIT 29.5 % (36.0-47.0); HEMOGLOBIN 9.4 g/dl (12.0-15.5); MEAN CORPUSCULAR HEMOGLOBIN 31.2 pg (27.0-33.0); MEAN CORPUSCULAR HGB CONC 31.9 g/dl (32.0-36.5); MONO # 0.4 10^3/uL (0.0-0.8); MONO % 5.7 % (2.0-8.0); NEUTROPHILS % 72.1 % (36.0-66.0); PLATELET COUNT, AUTOMATED 322 10^3/uL (150-450); RED BLOOD COUNT 3.01 10^6/uL (4.00-5.40); WHITE BLOOD COUNT 6.9 10^3/uL (4.0-10.0)
[2023-11-21 12:57] LABS: FERRITIN 417.7 NG/ML (7.3-270.7)
[2023-11-21 12:58] LABS: ALBUMIN 3.1 G/DL (3.2-5.2); CALCIUM LEVEL 9.2 MG/DL (8.3-10.6); CREATININE FOR GFR 2.78 MG/DL (0.55-1.30); GLOMERULAR FILTRATION RATE 17.7 (>39); MAGNESIUM LEVEL 2.3 MG/DL (1.8-2.4); PHOSPHORUS LEVEL 4.1 MG/DL (2.4-5.1); POTASSIUM SERUM 4.5 MMOL/L (3.5-5.1); TOTAL 25(OH) VITAMIN D 13.3 NG/ML (20.0-100.0)
[2023-11-21 12:59] LABS: PERCENT SATURATION 20.2 % (13.2-45.0)
== END ==
PROVIDERS: ATTEND Physician Assistant
DX: N18.9 Chronic kidney disease, unspecified (principal); Z79.899 Other long term (current) drug therapy

== ENCOUNTER → 2023-11-22 | Outpatient (REF) | payer MEDICARE, BC ==
[2023-11-22 18:13] LABS: PROTEIN, URINE AUTO NEGATIVE (NEGATIVE)
[2023-11-22 19:32] LABS: BACTERIA, URINE SMALL AMOUNT; HYALINE CAST, URINE NONE SEEN /lpf (0-1); RBC, URINE 0-1 /hpf (0-3); SQUAMOUS EPITHELIAL CELL URINE MOD AMOUNT /hpf (SMALL AMT)
== END ==
PROVIDERS: ATTEND Physician Assistant
DX: N39.0 Urinary tract infection, site not specified (principal)

== ENCOUNTER → 2023-11-23 | Outpatient (REF) | payer MEDICARE, BC ==
[2023-11-23 08:39] LABS: CALCIUM LEVEL 9.1 MG/DL (8.3-10.6); CREATININE FOR GFR 2.85 MG/DL (0.55-1.30); GLOMERULAR FILTRATION RATE 17.2 (>39); POTASSIUM SERUM 4.5 MMOL/L (3.5-5.1)
== END ==
PROVIDERS: ATTEND Physician Assistant
DX: N18.9 Chronic kidney disease, unspecified (principal)

== ENCOUNTER → 2023-11-24 | Outpatient (CLI) | payer MEDICARE, BC, MEDICAID | LOC: M RAD 08:56 | PROVIDERS: ATTEND Physician Assistant | DX: N18.9 Chronic kidney disease, unspecified (principal) ==

== ENCOUNTER → 2023-11-28 | Outpatient (REF) | payer MEDICARE, BC | PROVIDERS: ATTEND Internal Medicine | DX: D64.9 Anemia, unspecified (principal); Z53.8 Procedure and treatment not carried out for other reasons ==

== ENCOUNTER → 2023-11-30 | Outpatient (REF) | payer MEDICARE, BC, MEDICAID ==
[2023-11-30 11:56] LABS: HEMATOCRIT 29.1 % (36.0-47.0); HEMOGLOBIN 9.4 g/dl (12.0-15.5); MEAN CORPUSCULAR HEMOGLOBIN 30.9 pg (27.0-33.0); MEAN CORPUSCULAR HGB CONC 32.3 g/dl (32.0-36.5); MEAN CORPUSCULAR VOLUME 95.7 fl (80.0-96.0); PLATELET COUNT, AUTOMATED 312 10^3/uL (150-450); RED BLOOD COUNT 3.04 10^6/uL (4.00-5.40); WHITE BLOOD COUNT 7.8 10^3/uL (4.0-10.0)
[2023-11-30 12:12] LABS: CALCIUM LEVEL 8.8 MG/DL (8.3-10.6); CREATININE FOR GFR 2.68 MG/DL (0.55-1.30); GLOMERULAR FILTRATION RATE 18.5 (>39); POTASSIUM SERUM 4.4 MMOL/L (3.5-5.1)
== END ==
PROVIDERS: ATTEND Internal Medicine
DX: I48.91 Unspecified atrial fibrillation (principal)

== ENCOUNTER → 2023-12-14 | Outpatient (REF) | payer MEDICARE, BC, MEDICAID ==
[2023-12-14 18:07] LABS: TOTAL PROTEIN,RANDOM URINE 66.5 MG/DL (0.0-14.0)
[2023-12-14 18:50] LABS: APPEARANCE, URINE HAZY (CLEAR); BACTERIA, URINE AUTO NEGATIVE (NEGATIVE); BILIRUBIN, URINE AUTO NEGATIVE (NEGATIVE); BLOOD, URINE BLOOD NEGATIVE (NEGATIVE); COLOR, URINE YELLOW (YELLOW); GLUCOSE, URINE (UA) AUTO 1+ mg/dL (NEGATIVE); KETONE, URINE AUTO NEGATIVE (NEGATIVE); LEUKOCYTE ESTERASE, URINE AUTO NEGATIVE (NEGATIVE); MUCUS, URINE SMALL (NEGATIVE); NITRITE, URINE AUTO NEGATIVE (NEGATIVE); PROTEIN, URINE AUTO 1+ mg/dL (NEGATIVE); RBC, URINE AUTO 1 /HPF (0-3); SPECIFIC GRAVITY URINE AUTO 1.014 (1.002-1.035); SQUAMOUS EPITHELIAL CELL UR AU 5 /HPF (0-6); UROBILINOGEN, URINE AUTO 0.2 mg/dL (0.0-2.0); WBC, URINE AUTO 2 /HPF (0-3)
== END ==
PROVIDERS: ATTEND Internal Medicine
DX: N18.9 Chronic kidney disease, unspecified (principal)

== ENCOUNTER → 2023-12-19 | Outpatient (REF) | payer MEDICARE, BC, MEDICAID | PROVIDERS: ATTEND Physician Assistant | DX: R05.9 Cough, unspecified (principal) ==

== ENCOUNTER → 2024-01-02 | Outpatient (REF) | payer MEDICARE, BC, MEDICAID ==
[2024-01-02 10:02] LABS: HEMATOCRIT 30.8 % (36.0-47.0); HEMOGLOBIN 9.9 g/dl (12.0-15.5); MEAN CORPUSCULAR HEMOGLOBIN 30.7 pg (27.0-33.0); MEAN CORPUSCULAR HGB CONC 32.1 g/dl (32.0-36.5); MEAN CORPUSCULAR VOLUME 95.4 fl (80.0-96.0); PLATELET COUNT, AUTOMATED 304 10^3/uL (150-450); RED BLOOD COUNT 3.23 10^6/uL (4.00-5.40); WHITE BLOOD COUNT 4.3 10^3/uL (4.0-10.0)
[2024-01-02 10:47] LABS: CREATININE FOR GFR 2.1 MG/DL (0.55-1.30); GLOMERULAR FILTRATION RATE 24.5 (>39); POTASSIUM SERUM 4.7 MMOL/L (3.5-5.1)
== END ==
PROVIDERS: ATTEND Internal Medicine
DX: D64.9 Anemia, unspecified (principal)

== ENCOUNTER → 2024-01-10 | Outpatient (CLI) | payer MEDICARE, BC ==
[~2024-01-10] MED LIST changes: +CALC1TAB86 PO; +DULO1CAP4; +MUCI600T31 PO
== END ==
LOC: M ONCR 14:53
PROVIDERS: ATTEND General Practice
DX: C53.0 Malignant neoplasm of endocervix (principal); R53.1 Weakness; Z87.311 Personal history of (healed) other pathological fracture; Z79.620 Long term (current) use of immunosuppressive biologic; Z87.891 Personal history of nicotine dependence; Z79.899 Other long term (current) drug therapy; Z92.21 Personal history of antineoplastic chemotherapy; Z92.3 Personal history of irradiation; Z88.1 Allergy status to other antibiotic agents; Z88.2 Allergy status to sulfonamides; J30.89 Other allergic rhinitis; J30.2 Other seasonal allergic rhinitis

== ENCOUNTER → 2024-01-19 | Outpatient (CLI) | payer MEDICARE, BC, MEDICAID | LOC: M RAD 09:13 | PROVIDERS: ATTEND General Practice | DX: C53.0 Malignant neoplasm of endocervix (principal); J98.11 Atelectasis; J47.9 Bronchiectasis, uncomplicated; N13.4 Hydroureter; N13.30 Unspecified hydronephrosis; K44.9 Diaphragmatic hernia without obstruction or gangrene; N20.0 Calculus of kidney ==

== ENCOUNTER → 2024-01-30 | Outpatient (REF) | payer MEDICARE, BC ==
[2024-01-30 11:11] LABS: HEMATOCRIT 30.7 % (36.0-47.0); HEMOGLOBIN 9.7 g/dl (12.0-15.5); MEAN CORPUSCULAR HEMOGLOBIN 30.8 pg (27.0-33.0); MEAN CORPUSCULAR HGB CONC 31.6 g/dl (32.0-36.5); MEAN CORPUSCULAR VOLUME 97.5 fl (80.0-96.0); PLATELET COUNT, AUTOMATED 319 10^3/uL (150-450); RED BLOOD COUNT 3.15 10^6/uL (4.00-5.40); WHITE BLOOD COUNT 4.9 10^3/uL (4.0-10.0)
[2024-01-30 11:36] LABS: CALCIUM LEVEL 9.2 MG/DL (8.3-10.6); CREATININE FOR GFR 1.96 MG/DL (0.55-1.30); GLOMERULAR FILTRATION RATE 26.5 (>39); POTASSIUM SERUM 4.8 MMOL/L (3.5-5.1)
== END ==
PROVIDERS: ATTEND Internal Medicine
DX: D64.9 Anemia, unspecified (principal)

== ENCOUNTER → 2024-02-10 | Outpatient (REF) | payer MEDICARE ==
[2024-02-10 18:34] LABS: APPEARANCE, URINE HAZY (CLEAR); BACTERIA, URINE AUTO NEGATIVE (NEGATIVE); BILIRUBIN, URINE AUTO NEGATIVE (NEGATIVE); BLOOD, URINE BLOOD NEGATIVE (NEGATIVE); COLOR, URINE YELLOW (YELLOW); GLUCOSE, URINE (UA) AUTO 1+ mg/dL (NEGATIVE); KETONE, URINE AUTO NEGATIVE (NEGATIVE); LEUKOCYTE ESTERASE, URINE AUTO 3+ (NEGATIVE); NITRITE, URINE AUTO NEGATIVE (NEGATIVE); PROTEIN, URINE AUTO 2+ mg/dL (NEGATIVE); RBC, URINE AUTO 7 /HPF (0-3); SPECIFIC GRAVITY URINE AUTO 1.015 (1.002-1.035); SQUAMOUS EPITHELIAL CELL UR AU 7 /HPF (0-6); UROBILINOGEN, URINE AUTO 0.2 mg/dL (0.0-2.0); WBC, URINE AUTO 78 /HPF (0-3)
== END ==
PROVIDERS: ATTEND Internal Medicine
DX: N39.0 Urinary tract infection, site not specified (principal)

== ENCOUNTER → 2024-02-27 | Outpatient (REF) | payer BC, MEDICARE ==
[2024-02-27 12:03] LABS: HEMATOCRIT 32.6 % (36.0-47.0); HEMOGLOBIN 10.5 g/dl (12.0-15.5); MEAN CORPUSCULAR HEMOGLOBIN 31.3 pg (27.0-33.0); MEAN CORPUSCULAR HGB CONC 32.2 g/dl (32.0-36.5); MEAN CORPUSCULAR VOLUME 97.3 fl (80.0-96.0); PLATELET COUNT, AUTOMATED 275 10^3/uL (150-450); RED BLOOD COUNT 3.35 10^6/uL (4.00-5.40); WHITE BLOOD COUNT 5.6 10^3/uL (4.0-10.0)
[2024-02-27 12:29] LABS: CALCIUM LEVEL 9.3 MG/DL (8.3-10.6); CREATININE FOR GFR 1.86 MG/DL (0.55-1.30); GLOMERULAR FILTRATION RATE 28.2 (>39); POTASSIUM SERUM 4.7 MMOL/L (3.5-5.1)
== END ==
PROVIDERS: ATTEND Internal Medicine
DX: R39.198 Other difficulties with micturition (principal)

== ENCOUNTER → 2024-03-29 | Outpatient (REF) | payer MEDICARE | PROVIDERS: ATTEND Internal Medicine | DX: I51.7 Cardiomegaly (principal) ==

== ENCOUNTER → 2024-03-29 | Outpatient (REF) | payer MEDICARE ==
[2024-03-29 16:10] LABS: HEMATOCRIT 28.4 % (36.0-47.0); HEMOGLOBIN 9.3 g/dl (12.0-15.5); MEAN CORPUSCULAR HEMOGLOBIN 31.7 pg (27.0-33.0); MEAN CORPUSCULAR HGB CONC 32.7 g/dl (32.0-36.5); MEAN CORPUSCULAR VOLUME 96.9 fl (80.0-96.0); PLATELET COUNT, AUTOMATED 228 10^3/uL (150-450); RED BLOOD COUNT 2.93 10^6/uL (4.00-5.40); WHITE BLOOD COUNT 7.9 10^3/uL (4.0-10.0)
[2024-03-29 16:43] LABS: CALCIUM LEVEL 8.9 MG/DL (8.3-10.6); CREATININE FOR GFR 2.28 MG/DL (0.55-1.30); GLOMERULAR FILTRATION RATE 22.3 (>39); POTASSIUM SERUM 4.4 MMOL/L (3.5-5.1)
== END ==
PROVIDERS: ATTEND Physician Assistant
DX: I51.7 Cardiomegaly (principal); R50.9 Fever, unspecified

== ENCOUNTER → 2024-04-04 | Outpatient (REF) | payer MEDICARE ==
[2024-04-04 10:39] LABS: MEAN CORPUSCULAR HEMOGLOBIN 30.8 pg (27.0-33.0); MEAN CORPUSCULAR HGB CONC 32.1 g/dl (32.0-36.5); MEAN CORPUSCULAR VOLUME 95.9 fl (80.0-96.0); PLATELET COUNT, AUTOMATED 357 10^3/uL (150-450); RED BLOOD COUNT 2.92 10^6/uL (4.00-5.40); WHITE BLOOD COUNT 11.9 10^3/uL (4.0-10.0)
[2024-04-04 11:02] LABS: CALCIUM LEVEL 8.6 MG/DL (8.3-10.6); CREATININE FOR GFR 3.08 MG/DL (0.55-1.30); GLOMERULAR FILTRATION RATE 15.8 (>39); POTASSIUM SERUM 4.5 MMOL/L (3.5-5.1)
== END ==
PROVIDERS: ATTEND Internal Medicine
DX: D64.9 Anemia, unspecified (principal)

== ENCOUNTER → 2024-04-06 | Outpatient (REF) | payer MEDICARE | LOC: M PLAIMG 13:30 | PROVIDERS: ATTEND Internal Medicine | DX: R10.9 Unspecified abdominal pain (principal) ==

== ENCOUNTER → 2024-04-06 | Outpatient (REF) | payer MEDICARE | PROVIDERS: ATTEND Physician Assistant | DX: N39.0 Urinary tract infection, site not specified (principal); Z53.9 Procedure and treatment not carried out, unspecified reason ==

== ENCOUNTER → 2024-04-09 | Outpatient (REF) | payer MEDICARE ==
[2024-04-09 10:59] LABS: HEMATOCRIT 25.5 % (36.0-47.0); HEMOGLOBIN 8.2 g/dl (12.0-15.5); MEAN CORPUSCULAR HEMOGLOBIN 30.7 pg (27.0-33.0); MEAN CORPUSCULAR HGB CONC 32.2 g/dl (32.0-36.5); MEAN CORPUSCULAR VOLUME 95.5 fl (80.0-96.0); PLATELET COUNT, AUTOMATED 443 10^3/uL (150-450); RED BLOOD COUNT 2.67 10^6/uL (4.00-5.40); WHITE BLOOD COUNT 9.3 10^3/uL (4.0-10.0)
[2024-04-09 11:06] LABS: CALCIUM LEVEL 7.9 MG/DL (8.3-10.6); CREATININE FOR GFR 2.8 MG/DL (0.55-1.30); GLOMERULAR FILTRATION RATE 17.6 (>39); POTASSIUM SERUM 4.7 MMOL/L (3.5-5.1)
== END ==
PROVIDERS: ATTEND Physician Assistant
DX: N18.9 Chronic kidney disease, unspecified (principal)

== ENCOUNTER → 2024-04-11 | Outpatient (CLI) | payer MEDICARE, MEDICAID ==
[~2024-04-11] MED LIST changes: +GASTROGRAFIN SOLUTION 30ML As Ordered ONE
== END ==
LOC: M RAD 07:59
PROVIDERS: ATTEND Physician Assistant
DX: N17.9 Acute kidney failure, unspecified (principal); Z85.41 Personal history of malignant neoplasm of cervix uteri; N13.30 Unspecified hydronephrosis; N28.89 Other specified disorders of kidney and ureter
CPT/HCPCS: 74176; Q9963

== ENCOUNTER → 2024-04-11 | Outpatient (REF) | payer MEDICARE, MEDICAID ==
[~2024-04-11] MED LIST changes: -GASTROGRAFIN SOLUTION 30ML As Ordered ONE
[2024-04-11 14:16] LABS: CALCIUM LEVEL 8.1 MG/DL (8.3-10.6); CREATININE FOR GFR 2.56 MG/DL (0.55-1.30); GLOMERULAR FILTRATION RATE 19.5 (>39); POTASSIUM SERUM 5.5 MMOL/L (3.5-5.1)
[2024-04-11 14:20] LABS: FERRITIN 770.3 NG/ML (7.3-270.7)
== END ==
PROVIDERS: ATTEND Physician Assistant
DX: D64.9 Anemia, unspecified (principal)

== ENCOUNTER → 2024-04-12 | Outpatient (CLI) | payer MEDICARE, MEDICAID | LOC: M RAD 09:29 | PROVIDERS: ATTEND Physician Assistant | DX: Z85.41 Personal history of malignant neoplasm of cervix uteri (principal) ==

== ENCOUNTER → 2024-04-12 | Outpatient (REF) | payer MEDICARE, MEDICAID | PROVIDERS: ATTEND Physician Assistant | DX: D64.9 Anemia, unspecified (principal); Z53.8 Procedure and treatment not carried out for other reasons ==

== ENCOUNTER → 2024-04-13 | Outpatient (REF) | payer MEDICARE, MEDICAID ==
[2024-04-13 08:55] LABS: HEMOGLOBIN 8.7 g/dl (12.0-15.5); MEAN CORPUSCULAR HEMOGLOBIN 31.2 pg (27.0-33.0); MEAN CORPUSCULAR HGB CONC 32.2 g/dl (32.0-36.5); MEAN CORPUSCULAR VOLUME 96.8 fl (80.0-96.0); PLATELET COUNT, AUTOMATED 503 10^3/uL (150-450); RED BLOOD COUNT 2.79 10^6/uL (4.00-5.40); WHITE BLOOD COUNT 7.7 10^3/uL (4.0-10.0)
[2024-04-13 09:22] LABS: CALCIUM LEVEL 8.6 MG/DL (8.3-10.6); CREATININE FOR GFR 2.95 MG/DL (0.55-1.30); GLOMERULAR FILTRATION RATE 16.6 (>39); PERCENT SATURATION 14.8 % (13.2-45.0); POTASSIUM SERUM 5.3 MMOL/L (3.5-5.1)
[2024-04-13 09:24] LABS: FERRITIN 755.9 NG/ML (7.3-270.7)
== END ==
PROVIDERS: ATTEND Internal Medicine
DX: D64.9 Anemia, unspecified (principal)

== ENCOUNTER → 2024-04-16 | Outpatient (REF) | payer MEDICARE, MEDICAID | PROVIDERS: ATTEND Physician Assistant | DX: D64.9 Anemia, unspecified (principal) ==

== ENCOUNTER → 2024-04-17 | Outpatient (REF) | payer MEDICARE, MEDICAID, BC | PROVIDERS: ATTEND Internal Medicine | DX: Z53.9 Procedure and treatment not carried out, unspecified reason (principal) ==

== ENCOUNTER → 2024-04-18 | Outpatient (REF) | payer MEDICARE, MEDICAID ==
[2024-04-18 15:44] LABS: HEMATOCRIT 30.7 % (36.0-47.0); HEMOGLOBIN 9.5 g/dl (12.0-15.5); MEAN CORPUSCULAR HGB CONC 30.9 g/dl (32.0-36.5); MEAN CORPUSCULAR VOLUME 96.8 fl (80.0-96.0); PLATELET COUNT, AUTOMATED 514 10^3/uL (150-450); RED BLOOD COUNT 3.17 10^6/uL (4.00-5.40); WHITE BLOOD COUNT 8.3 10^3/uL (4.0-10.0)
[2024-04-18 16:23] LABS: CALCIUM LEVEL 8.9 MG/DL (8.3-10.6); CREATININE FOR GFR 2.9 MG/DL (0.55-1.30); GLOMERULAR FILTRATION RATE 16.9 (>39); POTASSIUM SERUM 4.9 MMOL/L (3.5-5.1)
== END ==
PROVIDERS: ATTEND Physician Assistant
DX: D64.9 Anemia, unspecified (principal)

== ENCOUNTER → 2024-05-02 | Outpatient (CLI) | payer MEDICARE, MEDICAID ==
[~2024-05-02] MED LIST changes: +DULC10SU2 PR; -DULO1CAP5; +DULO1CAP5 PO; +FERR325T3 PO; +ONDA-84; +SENN-186 PO; +TAMS1CAP17 PO
== END ==
LOC: M EKG 07:16
PROVIDERS: ATTEND Physician Assistant
DX: Z01.818 Encounter for other preprocedural examination (principal); R94.31 Abnormal electrocardiogram [ECG] [EKG]

== ENCOUNTER → 2024-05-02 | Outpatient (REF) | payer MEDICARE ==
[~2024-05-02] MED LIST changes: -DULC10SU2 PR; +DULO1CAP5; -DULO1CAP5 PO; -FERR325T3 PO; -ONDA-84; -SENN-186 PO; -TAMS1CAP17 PO
[2024-05-02 10:48] LABS: HEMATOCRIT 29.1 % (36.0-47.0); HEMOGLOBIN 9.1 g/dl (12.0-15.5); MEAN CORPUSCULAR HGB CONC 31.3 g/dl (32.0-36.5); PLATELET COUNT, AUTOMATED 332 10^3/uL (150-450); RED BLOOD COUNT 3.03 10^6/uL (4.00-5.40); WHITE BLOOD COUNT 7.6 10^3/uL (4.0-10.0)
[2024-05-02 11:17] LABS: CREATININE FOR GFR 2.88 MG/DL (0.55-1.30); POTASSIUM SERUM 4.5 MMOL/L (3.5-5.1)
== END ==
PROVIDERS: ATTEND Internal Medicine
DX: D64.9 Anemia, unspecified (principal)

== ENCOUNTER → 2024-05-15 | Outpatient (REF) | payer MEDICARE ==
[~2024-05-15] MED LIST changes: +DULC10SU2 PR; -DULO1CAP5; +DULO1CAP5 PO; +FERR325T3 PO; +ONDA-84; +SENN-186 PO; +TAMS1CAP17 PO
[2024-05-15 13:41] LABS: APPEARANCE, URINE CLOUDY (CLEAR); BACTERIA, URINE AUTO 1+ (NEGATIVE); BILIRUBIN, URINE AUTO NEGATIVE (NEGATIVE); BLOOD, URINE BLOOD NEGATIVE (NEGATIVE); COLOR, URINE YELLOW (YELLOW); GLUCOSE, URINE (UA) AUTO 1+ mg/dL (NEGATIVE); KETONE, URINE AUTO NEGATIVE (NEGATIVE); LEUKOCYTE ESTERASE, URINE AUTO 3+ (NEGATIVE); NITRITE, URINE AUTO NEGATIVE (NEGATIVE); PROTEIN, URINE AUTO 1+ mg/dL (NEGATIVE); RBC, URINE AUTO 4 /HPF (0-3); SPECIFIC GRAVITY URINE AUTO 1.011 (1.002-1.035); SQUAMOUS EPITHELIAL CELL UR AU 5 /HPF (0-6); UROBILINOGEN, URINE AUTO 0.2 mg/dL (0.0-2.0); WBC, URINE AUTO TNTC /HPF (0-3)
== END ==
PROVIDERS: ATTEND Physician Assistant
DX: Z01.818 Encounter for other preprocedural examination (principal); Z79.899 Other long term (current) drug therapy

== ENCOUNTER → 2024-05-18 | Outpatient (REF) | payer MEDICARE ==
[2024-05-18 17:30] LABS: APPEARANCE, URINE TURBID (CLEAR); BACTERIA, URINE AUTO 3+ (NEGATIVE); BILIRUBIN, URINE AUTO NEGATIVE (NEGATIVE); BLOOD, URINE BLOOD 1+ (NEGATIVE); COLOR, URINE YELLOW (YELLOW); GLUCOSE, URINE (UA) AUTO 1+ mg/dL (NEGATIVE); KETONE, URINE AUTO NEGATIVE (NEGATIVE); LEUKOCYTE ESTERASE, URINE AUTO 3+ (NEGATIVE); NITRITE, URINE AUTO NEGATIVE (NEGATIVE); PROTEIN, URINE AUTO 2+ mg/dL (NEGATIVE); RBC, URINE AUTO 72 /HPF (0-3); SPECIFIC GRAVITY URINE AUTO 1.011 (1.002-1.035); SQUAMOUS EPITHELIAL CELL UR AU 0 /HPF (0-6); UROBILINOGEN, URINE AUTO 0.2 mg/dL (0.0-2.0); WBC, URINE AUTO TNTC /HPF (0-3)
== END ==
PROVIDERS: ATTEND Physician Assistant
DX: Z01.818 Encounter for other preprocedural examination (principal); Z79.899 Other long term (current) drug therapy

== ENCOUNTER 2024-05-24 08:30 | Day surgery (SDC) | payer MEDICARE, BC, MEDICAID ==
[~2024-05-24] VITALS: Ht 166.4 cm; Wt 77.1 kg
[~2024-05-24 08:30] MED LIST changes: +LIDOCAINE 2% 100MG/5ML SDV (FOR ANES.) As Ordered ONE; +ONDANSETRON 4MG 2ML VIAL As Ordered ONE; +fentaNYL 100 MCG/2 ML INJECTION As Ordered ONE; +propofoL 200 MG/20 ML VIAL As Ordered ONE
[2024-05-24] MEDS: ceFAZolin SOD 2 GM in IV 1 EA IV ONE (09:54)
[2024-05-24] MEDS ORDERED: ACETAMINOPHEN 1000MG/100ML IV BAG As Ordered ONE (09:57)
[2024-05-24] MEDS: ISOVUE-300 61% 100ML VIAL As Ordered ONE (10:20)
[2024-05-24] MEDS ORDERED: fentaNYL 100 MCG/2 ML INJECTION IV PRN (10:35)
[2024-05-24] MEDS ORDERED: oxyCODONE 5MG TAB PO PRN (10:35)
[2024-05-24] MEDS ORDERED: ONDANSETRON 4MG 2ML VIAL IV PRN (10:35)
[2024-05-24] MEDS ORDERED: OXYB5TAB14 PO (10:41)
[2024-05-24] MEDS ORDERED: PYRI1TAB5 PO (10:41)
[2024-05-24] MEDS ORDERED: CEPH500C PO (10:41)
[2024-05-24 12:10] VITALS: BP 120/56; TEMP 96; O2SAT 96
== END 2024-05-24 12:13 | disposition home or self-care (01) ==
LOC: M SDC 08:30
PROVIDERS: ATTEND Urology
DX: N13.1 Hydronephrosis with ureteral stricture, not elsewhere classified (principal); N18.4 Chronic kidney disease, stage 4 (severe); R32 Unspecified urinary incontinence; Z79.899 Other long term (current) drug therapy; Z85.41 Personal history of malignant neoplasm of cervix uteri; Z92.21 Personal history of antineoplastic chemotherapy; J30.89 Other allergic rhinitis; Z92.3 Personal history of irradiation; Z88.2 Allergy status to sulfonamides
CPT/HCPCS: 52332; 52344; 76000; 87088; 87186; 88108; C1769; C2617; J0131; J0690; J1100; J2405; J3010; Q9967

== ENCOUNTER → 2024-05-28 | Outpatient (REF) | payer MEDICARE ==
[~2024-05-28] MED LIST changes: +CEPH500C PO; -LIDOCAINE 2% 100MG/5ML SDV (FOR ANES.) As Ordered ONE; -ONDANSETRON 4MG 2ML VIAL As Ordered ONE; +PYRI1TAB5 PO; -fentaNYL 100 MCG/2 ML INJECTION As Ordered ONE; -propofoL 200 MG/20 ML VIAL As Ordered ONE
[2024-05-28 11:45] LABS: HEMATOCRIT 28.5 % (36.0-47.0); HEMOGLOBIN 8.9 g/dl (12.0-15.5); MEAN CORPUSCULAR HEMOGLOBIN 30.1 pg (27.0-33.0); MEAN CORPUSCULAR HGB CONC 31.2 g/dl (32.0-36.5); MEAN CORPUSCULAR VOLUME 96.3 fl (80.0-96.0); PLATELET COUNT, AUTOMATED 293 10^3/uL (150-450); RED BLOOD COUNT 2.96 10^6/uL (4.00-5.40); WHITE BLOOD COUNT 6.7 10^3/uL (4.0-10.0)
[2024-05-28 12:20] LABS: CALCIUM LEVEL 8.8 MG/DL (8.3-10.6); CREATININE FOR GFR 2.9 MG/DL (0.55-1.30); GLOMERULAR FILTRATION RATE 16.9 (>39); POTASSIUM SERUM 4.5 MMOL/L (3.5-5.1)
== END ==
PROVIDERS: ATTEND Internal Medicine
DX: D64.9 Anemia, unspecified (principal)

== ENCOUNTER → 2024-05-30 | Outpatient (REF) | payer MEDICARE, BC, MEDICAID ==
[2024-05-30 09:15] LABS: HEMOGLOBIN 8.9 g/dl (12.0-15.5); MEAN CORPUSCULAR HEMOGLOBIN 30.4 pg (27.0-33.0); MEAN CORPUSCULAR HGB CONC 31.8 g/dl (32.0-36.5); MEAN CORPUSCULAR VOLUME 95.6 fl (80.0-96.0); PLATELET COUNT, AUTOMATED 305 10^3/uL (150-450); RED BLOOD COUNT 2.93 10^6/uL (4.00-5.40); WHITE BLOOD COUNT 6.4 10^3/uL (4.0-10.0)
[2024-05-30 09:40] LABS: CALCIUM LEVEL 8.8 MG/DL (8.3-10.6); CREATININE FOR GFR 2.62 MG/DL (0.55-1.30); POTASSIUM SERUM 4.6 MMOL/L (3.5-5.1)
== END ==
PROVIDERS: ATTEND Physician Assistant
DX: D64.9 Anemia, unspecified (principal)

== ENCOUNTER → 2024-07-02 | Outpatient (REF) | payer MEDICARE, BC, MEDICAID ==
[2024-07-02 10:27] LABS: BASO % 0.6 % (0.0-1.0); EOS # 0.3 10^3/uL (0.0-0.5); EOS % 4.3 % (0.0-3.0); HEMATOCRIT 30.7 % (36.0-47.0); HEMOGLOBIN 9.7 g/dl (12.0-15.5); LYMPH # 1.2 10^3/uL (1.5-5.0); LYMPH % 17.5 % (24.0-44.0); MEAN CORPUSCULAR HEMOGLOBIN 30.3 pg (27.0-33.0); MEAN CORPUSCULAR HGB CONC 31.6 g/dl (32.0-36.5); MEAN CORPUSCULAR VOLUME 95.9 fl (80.0-96.0); MONO # 0.4 10^3/uL (0.0-0.8); MONO % 6.3 % (2.0-8.0); NEUTROPHILS # 4.8 10^3/uL (1.5-8.5); PLATELET COUNT, AUTOMATED 301 10^3/uL (150-450); WHITE BLOOD COUNT 6.8 10^3/uL (4.0-10.0)
[2024-07-02 11:01] LABS: ALBUMIN 3.1 G/DL (3.2-5.2); CALCIUM LEVEL 9.2 MG/DL (8.3-10.6); CREATININE FOR GFR 2.68 MG/DL (0.55-1.30); FERRITIN 572.4 NG/ML (7.3-270.7); GLOMERULAR FILTRATION RATE 18.1 (>39); MAGNESIUM LEVEL 2.2 MG/DL (1.8-2.4); PHOSPHORUS LEVEL 4.7 MG/DL (2.4-5.1); POTASSIUM SERUM 4.4 MMOL/L (3.5-5.1)
[2024-07-02 11:02] LABS: PERCENT SATURATION 26.5 % (13.2-45.0); TOTAL 25(OH) VITAMIN D 26.6 NG/ML (20.0-100.0)
== END ==
PROVIDERS: ATTEND Internal Medicine
DX: D64.9 Anemia, unspecified (principal); Z79.899 Other long term (current) drug therapy

== ENCOUNTER → 2024-07-04 | Outpatient (CLI) | payer MEDICARE, BC, MEDICAID | LOC: M ONCR 09:36 | PROVIDERS: ATTEND General Practice | DX: C53.0 Malignant neoplasm of endocervix (principal); M81.0 Age-related osteoporosis without current pathological fracture; Z92.21 Personal history of antineoplastic chemotherapy; Z92.3 Personal history of irradiation; Z79.620 Long term (current) use of immunosuppressive biologic; Z79.899 Other long term (current) drug therapy; Z87.891 Personal history of nicotine dependence; Z88.1 Allergy status to other antibiotic agents; Z88.2 Allergy status to sulfonamides; J30.89 Other allergic rhinitis; J30.2 Other seasonal allergic rhinitis; Z96.0 Presence of urogenital implants ==

== ENCOUNTER → 2024-07-04 | Outpatient (REF) | payer MEDICARE, BC, MEDICAID | PROVIDERS: ATTEND Physician Assistant | DX: N18.9 Chronic kidney disease, unspecified (principal); Z53.8 Procedure and treatment not carried out for other reasons ==

== ENCOUNTER → 2024-07-10 | Outpatient (CLI) | payer MEDICARE, BC, MEDICAID | LOC: M RAD 09:44 | PROVIDERS: ATTEND General Practice | DX: C53.0 Malignant neoplasm of endocervix (principal) ==

== ENCOUNTER → 2024-07-30 | Outpatient (REF) | payer MEDICARE, BC, MEDICAID ==
[2024-07-30 09:44] LABS: HEMATOCRIT 29.1 % (36.0-47.0); HEMOGLOBIN 9.3 g/dl (12.0-15.5); MEAN CORPUSCULAR HEMOGLOBIN 31.7 pg (27.0-33.0); MEAN CORPUSCULAR VOLUME 99.3 fl (80.0-96.0); PLATELET COUNT, AUTOMATED 282 10^3/uL (150-450); RED BLOOD COUNT 2.93 10^6/uL (4.00-5.40)
[2024-07-30 10:04] LABS: CREATININE FOR GFR 2.46 MG/DL (0.55-1.30); GLOMERULAR FILTRATION RATE 20.1 (>39); POTASSIUM SERUM 4.5 MMOL/L (3.5-5.1)
== END ==
PROVIDERS: ATTEND Internal Medicine
DX: D64.9 Anemia, unspecified (principal)

== ENCOUNTER → 2024-10-01 | Outpatient (REF) | payer MEDICARE, BC, MEDICAID ==
[2024-10-01 10:46] LABS: PLATELET COUNT, AUTOMATED 279 10^3/uL (150-450)
[2024-10-01 11:20] LABS: CALCIUM LEVEL 8.5 MG/DL (8.3-10.6); CARBON DIOXIDE LEVEL 22.0 MMOL/L (20-31); CHLORIDE LEVEL 109.0 MMOL/L (98-107); CREATININE FOR GFR 2.55 MG/DL (0.55-1.30); GLOMERULAR FILTRATION RATE 19.2 (>39); POTASSIUM SERUM 4.4 MMOL/L (3.5-5.1); SODIUM LEVEL 144.0 MMOL/L (136-145)
[2024-10-01 11:52] LABS: BASO # 0.0 10^3/uL (0.0-0.2); BASO % 0.3 % (0.0-1.0); EOS # 0.2 10^3/uL (0.0-0.5); EOS % 3.3 % (0.0-3.0); LYMPH # 1.1 10^3/uL (1.5-5.0); LYMPH % 17.0 % (24.0-44.0); MONO # 0.4 10^3/uL (0.0-0.8); MONO % 6.6 % (2.0-8.0); NEUTROPHILS # 4.8 10^3/uL (1.5-8.5); NEUTROPHILS % 72.6 % (36.0-66.0)
== END ==
PROVIDERS: ATTEND Internal Medicine
DX: D64.9 Anemia, unspecified (principal)

== ENCOUNTER → 2024-10-03 | Outpatient (REF) | payer MEDICARE, BC, MEDICAID | PROVIDERS: ATTEND Physician Assistant | DX: R41.82 Altered mental status, unspecified (principal) ==

== ENCOUNTER → 2024-10-31 | Outpatient (REF) | payer MEDICARE, BC, MEDICAID ==
[~2024-10-31] MED LIST changes: +CERA355L TOP; +DICL20GE TOP; +FERR324T21 PO; +OMEP40CA5 PO
== END ==
PROVIDERS: ATTEND Internal Medicine
DX: D64.9 Anemia, unspecified (principal)

== ENCOUNTER → 2024-11-02 | Outpatient (REF) | payer MEDICARE, BC, MEDICAID ==
[2024-11-02 10:27] LABS: PLATELET COUNT, AUTOMATED 270 10^3/uL (150-450)
[2024-11-02 10:53] LABS: CALCIUM LEVEL 8.6 MG/DL (8.3-10.6); CARBON DIOXIDE LEVEL 22.0 MMOL/L (20-31); CHLORIDE LEVEL 110.0 MMOL/L (98-107); CREATININE FOR GFR 2.76 MG/DL (0.55-1.30); GLOMERULAR FILTRATION RATE 17.4 (>39); POTASSIUM SERUM 4.4 MMOL/L (3.5-5.1); SODIUM LEVEL 143.0 MMOL/L (136-145)
== END ==
PROVIDERS: ATTEND Physician Assistant
DX: D64.9 Anemia, unspecified (principal)

== ENCOUNTER 2024-11-05 14:24 | Emergency (ER) | payer MEDICARE, BC, MEDICAID ==
[~2024-11-05] VITALS: Ht 165.1 cm; Wt 77.3 kg
[~2024-11-05 14:24] MED LIST changes: -CERA355L TOP; -DICL20GE TOP; -FERR324T21 PO; -HYDR25SU61 PR; -OMEP40CA5 PO
[2024-11-05 15:47] LABS: BASO # 0.0 10^3/uL (0.0-0.2); BASO % 0.5 % (0.0-1.0); EOS # 0.2 10^3/uL (0.0-0.5); EOS % 4.0 % (0.0-3.0); LYMPH # 1.1 10^3/uL (1.5-5.0); LYMPH % 18.3 % (24.0-44.0); MONO # 0.4 10^3/uL (0.0-0.8); MONO % 6.5 % (2.0-8.0); NEUTROPHILS # 4.2 10^3/uL (1.5-8.5); NEUTROPHILS % 70.4 % (36.0-66.0); PLATELET COUNT, AUTOMATED 280 10^3/uL (150-450)
[2024-11-05 15:59] LABS: INR 0.96
[2024-11-05] MEDS: PANTOPRAZOLE 40MG VIAL IV ONE (16:06)
[2024-11-05 16:11] LABS: ALT/SGPT < 9 U/L (7.0-40); AST/SGOT 12 U/L (<34); CALCIUM LEVEL 9.1 MG/DL (8.3-10.6); CARBON DIOXIDE LEVEL 23 MMOL/L (20-31); CHLORIDE LEVEL 111 MMOL/L (98-107); CPK CREATINE PHOSPHOKINASE 22 U/L (34-145); CREATININE FOR GFR 2.72 MG/DL (0.55-1.30); GLOMERULAR FILTRATION RATE 17.7 (>39); POTASSIUM SERUM 4.7 MMOL/L (3.5-5.1); SODIUM LEVEL 143 MMOL/L (136-145)
[2024-11-05 16:12] LABS: CK-MB VALUE MASS 1.0 NG/ML (<3.6); MB/CK RELATIVE INDEX 4.54 (< OR =4)
[2024-11-05] MEDS ORDERED: CERA355L TOP (18:08)
[2024-11-05] MEDS ORDERED: MIRA3350 PO (18:08)
[2024-11-05] MEDS ORDERED: FERR324T21 PO (18:08)
[2024-11-05] MEDS ORDERED: OMEP40CA5 PO (18:09)
[2024-11-05] MEDS ORDERED: DICL20GE TOP (18:10)
[2024-11-05] MEDS ORDERED: HOME MED LIST COMPLETE! XX SCH (18:15)
[2024-11-05 19:07] VITALS: BP 118/58; TEMP 97.6; O2SAT 99
[2024-11-05 19:25] VITALS: BP 154/56; TEMP 97; O2SAT 98
[2024-11-05 20:10] VITALS: BP 161/68; TEMP 97; O2SAT 98
[2024-11-05 21:11] VITALS: BP 167/66; TEMP 97; O2SAT 97
[2024-11-05 21:29] VITALS: BP 159/70; TEMP 97.1; O2SAT 98
[2024-11-05 22:47] VITALS: BP 149/67; TEMP 97; O2SAT 98
[2024-11-06] MEDS: PANTOPRAZOLE 40MG VIAL IV ONE (02:43)
[2024-11-06] MEDS: NS (Normal Saline) 0.9% 1,000 ML IV SCH (02:43)
[2024-11-06 06:48] LABS: PLATELET COUNT, AUTOMATED 244 10^3/uL (150-450)
[2024-11-06 07:11] LABS: CALCIUM LEVEL 8.7 MG/DL (8.3-10.6); CARBON DIOXIDE LEVEL 20.0 MMOL/L (20-31); CHLORIDE LEVEL 111.0 MMOL/L (98-107); CREATININE FOR GFR 2.6 MG/DL (0.55-1.30); GLOMERULAR FILTRATION RATE 18.7 (>39); POTASSIUM SERUM 4.5 MMOL/L (3.5-5.1); SODIUM LEVEL 143.0 MMOL/L (136-145)
[2024-11-06] MEDS: PANTOPRAZOLE 40MG VIAL IV SCH (09:26)
[2024-11-06] MEDS ORDERED: HYDR25SU61 PR (11:27)
[2024-11-06 11:45] VITALS: BP 142/63; O2SAT 99
[2024-12-22] MEDS ORDERED: CALC1TAB63 PO (14:59)
[2024-12-22] MEDS ORDERED: HYDR25SU61 PR (15:06)
[2024-12-22] MEDS ORDERED: FLEEENE12 PR (15:10)
[2024-12-28] MEDS ORDERED: DOXY-440 PO (09:42)
== END 2024-11-06 13:31 | disposition home or self-care (01) ==
LOC: M ED 14:24
DX: K92.2 Gastrointestinal hemorrhage, unspecified (principal); D64.9 Anemia, unspecified; N18.4 Chronic kidney disease, stage 4 (severe); J30.89 Other allergic rhinitis; J30.2 Other seasonal allergic rhinitis; Z85.41 Personal history of malignant neoplasm of cervix uteri; Z92.21 Personal history of antineoplastic chemotherapy; Z92.3 Personal history of irradiation; Z79.899 Other long term (current) drug therapy; Z88.2 Allergy status to sulfonamides
CPT/HCPCS: 36415; 36430; 71045; 74176; 80047; 80048; 80053; 82248; 82550; 82553; 82607; 82728; 83550; 83605; 83690; 84484; 85025; 85027; 85046; 85384; 85610; 85730; 86850; 86900; 86901; 86920; 96374; 96375; 99285; J2470; P9016

== ENCOUNTER → 2024-11-05 | Outpatient (REF) | payer MEDICARE, BC, MEDICAID ==
[~2024-11-05] MED LIST changes: +HYDR25SU61 PR
[2024-11-05 11:09] LABS: PLATELET COUNT, AUTOMATED 279 10^3/uL (150-450)
[2024-11-05 11:29] LABS: IRON (FE) 39.0 UG/DL (50-170); PERCENT SATURATION 16.2 % (13.2-45.0)
[2024-11-05 11:30] LABS: CALCIUM LEVEL 8.5 MG/DL (8.3-10.6); CARBON DIOXIDE LEVEL 21.0 MMOL/L (20-31); CHLORIDE LEVEL 110.0 MMOL/L (98-107); CREATININE FOR GFR 2.76 MG/DL (0.55-1.30); GLOMERULAR FILTRATION RATE 17.4 (>39); POTASSIUM SERUM 4.2 MMOL/L (3.5-5.1); SODIUM LEVEL 143.0 MMOL/L (136-145)
[2024-11-05 11:31] LABS: VITAMIN B12 LEVEL 294.0 PG/ML (211-911)
== END ==
PROVIDERS: ATTEND Physician Assistant
DX: D64.9 Anemia, unspecified (principal)

== ENCOUNTER → 2024-11-07 | Outpatient (REF) | payer MEDICARE, BC, MEDICAID ==
[~2024-11-07] MED LIST changes: +CERA355L TOP; +DICL20GE TOP; +FERR324T21 PO; +HYDR25SU61 PR; +OMEP40CA5 PO
[2024-11-07 12:13] LABS: PLATELET COUNT, AUTOMATED 255 10^3/uL (150-450)
[2024-11-07 12:52] LABS: CALCIUM LEVEL 8.7 MG/DL (8.3-10.6); CARBON DIOXIDE LEVEL 22.0 MMOL/L (20-31); CHLORIDE LEVEL 110.0 MMOL/L (98-107); CREATININE FOR GFR 2.76 MG/DL (0.55-1.30); GLOMERULAR FILTRATION RATE 17.4 (>39); POTASSIUM SERUM 4.6 MMOL/L (3.5-5.1); SODIUM LEVEL 143.0 MMOL/L (136-145)
== END ==
PROVIDERS: ATTEND Physician Assistant
DX: D64.9 Anemia, unspecified (principal)

== ENCOUNTER → 2024-11-12 | Outpatient (REF) | payer MEDICARE, BC, MEDICAID ==
[~2024-11-12] MED LIST changes: +ACET-897 PO; +DOCU100C16 PO; +DULO20CA27 PO; +FAMO1TAB11 PO; +LEVO1TAB38 PO; +SUCR1TAB56 PO
[2024-11-12 11:42] LABS: PLATELET COUNT, AUTOMATED 290 10^3/uL (150-450)
[2024-11-12 12:11] LABS: CALCIUM LEVEL 9.4 MG/DL (8.3-10.6); CARBON DIOXIDE LEVEL 23.0 MMOL/L (20-31); CHLORIDE LEVEL 110.0 MMOL/L (98-107); CREATININE FOR GFR 3.08 MG/DL (0.55-1.30); GLOMERULAR FILTRATION RATE 15.2 (>39); POTASSIUM SERUM 4.4 MMOL/L (3.5-5.1); SODIUM LEVEL 145.0 MMOL/L (136-145)
[2024-11-12 12:12] LABS: IRON (FE) 48.0 UG/DL (50-170)
[2024-11-12 12:13] LABS: PERCENT SATURATION 20.3 % (13.2-45.0)
== END ==
PROVIDERS: ATTEND Physician Assistant
DX: D50.0 Iron deficiency anemia secondary to blood loss (chronic) (principal); K92.2 Gastrointestinal hemorrhage, unspecified; Z86.002 Personal history of in-situ neoplasm of other and unspecified genital organs

== ENCOUNTER → 2024-11-14 | Outpatient (REF) | payer MEDICARE, BC, MEDICAID | PROVIDERS: ATTEND Physician Assistant | DX: N18.9 Chronic kidney disease, unspecified (principal); Z53.8 Procedure and treatment not carried out for other reasons ==

== ENCOUNTER → 2024-11-20 | Outpatient (REF) | payer MEDICARE, BC, MEDICAID ==
[2024-11-20 13:10] LABS: PLATELET COUNT, AUTOMATED 321 10^3/uL (150-450)
[2024-11-20 13:39] LABS: CALCIUM LEVEL 8.6 MG/DL (8.3-10.6); CARBON DIOXIDE LEVEL 21.0 MMOL/L (20-31); CHLORIDE LEVEL 109.0 MMOL/L (98-107); CREATININE FOR GFR 2.69 MG/DL (0.55-1.30); GLOMERULAR FILTRATION RATE 17.9 (>39); POTASSIUM SERUM 4.8 MMOL/L (3.5-5.1); SODIUM LEVEL 143.0 MMOL/L (136-145)
== END ==
PROVIDERS: ATTEND Physician Assistant
DX: D64.9 Anemia, unspecified (principal)

== ENCOUNTER → 2024-11-22 | Outpatient (REF) | payer MEDICARE, BC, MEDICAID | PROVIDERS: ATTEND Physician Assistant | DX: D64.9 Anemia, unspecified (principal); Z53.8 Procedure and treatment not carried out for other reasons ==

== ENCOUNTER → 2024-11-23 | Outpatient (REF) | payer MEDICARE, BC, MEDICAID ==
[~2024-11-23] MED LIST changes: -ACET-897 PO; -DOCU100C16 PO; -DULO20CA27 PO; -FAMO1TAB11 PO; -LEVO1TAB38 PO; -SUCR1TAB56 PO
[2024-11-23 10:15] LABS: PLATELET COUNT, AUTOMATED 343 10^3/uL (150-450)
[2024-11-23 10:36] LABS: CALCIUM LEVEL 9.2 MG/DL (8.3-10.6); CARBON DIOXIDE LEVEL 24.0 MMOL/L (20-31); CHLORIDE LEVEL 110.0 MMOL/L (98-107); CREATININE FOR GFR 2.98 MG/DL (0.55-1.30); GLOMERULAR FILTRATION RATE 15.9 (>39); POTASSIUM SERUM 4.5 MMOL/L (3.5-5.1); SODIUM LEVEL 145.0 MMOL/L (136-145)
== END ==
PROVIDERS: ATTEND Physician Assistant
DX: D64.9 Anemia, unspecified (principal)

== ENCOUNTER → 2024-11-27 | Outpatient (REF) | payer MEDICARE, BC, MEDICAID ==
[~2024-11-27] MED LIST changes: +ACET-897 PO; +DOCU100C16 PO; +DULO20CA27 PO; +FAMO1TAB11 PO; +LEVO1TAB38 PO; +SUCR1TAB56 PO
== END ==
PROVIDERS: ATTEND Physician Assistant
DX: R82.998 Other abnormal findings in urine (principal)

== ENCOUNTER 2024-11-28 16:42 | Inpatient (IN) | payer MEDICARE, BC, MEDICAID ==
[~2024-11-28] VITALS: Ht 165.1 cm; Wt 80.1 kg
[2024-11-28] VITALS (9 sets, daily range): BP systolic 118–176; BP diastolic 56–78; TEMP 96.7–97.8; O2SAT 97–99
[~2024-11-28 16:42] MED LIST changes: -ACET-897 PO; -DOCU100C16 PO; -DULO20CA27 PO; -FAMO1TAB11 PO; -LEVO1TAB38 PO; -SUCR1TAB56 PO
[2024-11-28 17:14] LABS: BASO # 0.0 10^3/uL (0.0-0.2); BASO % 0.2 % (0.0-1.0); EOS # 0.2 10^3/uL (0.0-0.5); EOS % 2.1 % (0.0-3.0); LYMPH # 0.7 10^3/uL (1.5-5.0); LYMPH % 8.8 % (24.0-44.0); MONO # 0.4 10^3/uL (0.0-0.8); MONO % 5.1 % (2.0-8.0); NEUTROPHILS # 7.0 10^3/uL (1.5-8.5); NEUTROPHILS % 83.4 % (36.0-66.0); PLATELET COUNT, AUTOMATED 314 10^3/uL (150-450)
[2024-11-28] MEDS: PANTOPRAZOLE 40MG VIAL IV ONE (17:23)
[2024-11-28 17:28] LABS: INR 0.97
[2024-11-28] MEDS: MAGNESIUM CITRATE 300 ML BTL PO ONE (17:30)
[2024-11-28 17:39] LABS: ALT/SGPT < 9 U/L (7.0-40); AST/SGOT 16 U/L (<34); CALCIUM LEVEL 9.7 MG/DL (8.3-10.6); CARBON DIOXIDE LEVEL 24 MMOL/L (20-31); CHLORIDE LEVEL 106 MMOL/L (98-107); CREATININE FOR GFR 2.74 MG/DL (0.55-1.30); GLOMERULAR FILTRATION RATE 17.5 (>39); POTASSIUM SERUM 4.6 MMOL/L (3.5-5.1); SODIUM LEVEL 142 MMOL/L (136-145)
[2024-11-28] MEDS: INSULIN LISPRO (NovoLOG) PER UNIT SC SCH (18:00)
[2024-11-28] MEDS ORDERED: ONDANSETRON 4MG 2ML VIAL IV PRN (18:25)
[2024-11-28] MEDS ORDERED: GLUCAGON INJ 1 MG VIAL SC PRN (18:30)
[2024-11-28] MEDS ORDERED: GLUCOSE 4 GM CHEW PO PRN (18:30)
[2024-11-28] MEDS ORDERED: DEXTROSE 50% 50 ML SYRINGE IV PRN (18:30)
[2024-11-28] MEDS ORDERED: DOCU100C16 PO (18:31)
[2024-11-28] MEDS ORDERED: DULO20CA27 PO (18:31)
[2024-11-28] MEDS ORDERED: SUCR1TAB56 PO (18:31)
[2024-11-28] MEDS ORDERED: LEVO1TAB38 PO (18:31)
[2024-11-28] MEDS ORDERED: FAMO1TAB11 PO (18:31)
[2024-11-28] MEDS ORDERED: ACET-897 PO (18:31)
[2024-11-28] MEDS ORDERED: HOME MED LIST COMPLETE! XX SCH (18:35)
[2024-11-28 19:04] LABS: IRON (FE) 45 UG/DL (50-170); PERCENT SATURATION 19.5 % (13.2-45.0)
[2024-11-28 19:07] LABS: VITAMIN B12 LEVEL 432 PG/ML (211-911)
[2024-11-28] MEDS: DOCUSATE SODIUM 100 MG CAPSULE PO ONE (20:23)
[2024-11-28] MEDS: MOM 30 ML SUSPENSION UDC PO ONE (20:23)
[2024-11-28] MEDS: SENNA 8.6 MG TAB PO SCH (20:23)
[2024-11-29] VITALS (10 sets, daily range): BP systolic 99–162; BP diastolic 51–72; TEMP 97.4–98; O2SAT 95–99
[2024-11-29 04:11] LABS: PLATELET COUNT, AUTOMATED 245 10^3/uL (150-450)
[2024-11-29 04:47] LABS: ALT/SGPT < 9 U/L (7.0-40); AST/SGOT 15 U/L (<34); CALCIUM LEVEL 9.3 MG/DL (8.3-10.6); CARBON DIOXIDE LEVEL 26 MMOL/L (20-31); CHLORIDE LEVEL 108 MMOL/L (98-107); CREATININE FOR GFR 2.73 MG/DL (0.55-1.30); GLOMERULAR FILTRATION RATE 17.6 (>39); POTASSIUM SERUM 4.7 MMOL/L (3.5-5.1); SODIUM LEVEL 143 MMOL/L (136-145)
[2024-11-29] MEDS: PANTOPRAZOLE 40MG VIAL IV SCH (08:31)
[2024-11-29] MEDS: MAGNESIUM CITRATE 300 ML BTL PO ONE (08:31)
[2024-11-29] MEDS: BISACODYL 5 MG TAB PO ONE (11:55)
[2024-11-29] MEDS: MOM 30 ML SUSPENSION UDC PO ONE (11:57)
[2024-11-29] MEDS: FLEET ENEMA PR ONE (12:20)
[2024-11-29] MEDS ORDERED: LIDOCAINE 2% 100 MG/5 ML SDV (FOR ANES.) As Ordered ONE (14:03)
[2024-11-29] MEDS ORDERED: PHENYLephrine 500MCG 5ML (100MCG/ML) SYRINGE As Ordered ONE (14:32)
[2024-11-29] MEDS: INSULIN LISPRO (NovoLOG) PER UNIT SC SCH (20:50)
[2024-11-30 03:46] VITALS: BP 113/55; TEMP 97.2; O2SAT 98
[2024-11-30 05:54] LABS: PLATELET COUNT, AUTOMATED 231 10^3/uL (150-450)
[2024-11-30 06:26] LABS: ALT/SGPT < 9 U/L (7.0-40); AST/SGOT 15 U/L (<34); CALCIUM LEVEL 9.3 MG/DL (8.3-10.6); CARBON DIOXIDE LEVEL 26 MMOL/L (20-31); CHLORIDE LEVEL 106 MMOL/L (98-107); CREATININE FOR GFR 2.89 MG/DL (0.55-1.30); GLOMERULAR FILTRATION RATE 16.4 (>39); POTASSIUM SERUM 4.6 MMOL/L (3.5-5.1); SODIUM LEVEL 142 MMOL/L (136-145)
[2024-11-30 07:19] VITALS: BP 117/57; TEMP 97.6; O2SAT 98
[2024-11-30] MEDS: IRON SUCROSE 100 MG/5 ML VIAL IV ONE (08:53)
[2024-11-30] MEDS: INSULIN LISPRO (NovoLOG) PER UNIT SC SCH (08:54)
[2024-11-30 09:25] VITALS: BP 104/64
[2024-11-30 11:23] VITALS: BP 120/58; TEMP 97.6; O2SAT 98
== END 2024-11-30 14:10 | DRG 378 ==
LOC: EDBD 16:42 → M ED 16:42 → M ED INP 18:03 → M PCU 19:56
PROVIDERS: ADMIT Internal Medicine; ATTEND Internal Medicine
PROC: 30233N1 Transfusion of Nonautologous Red Blood Cells into Peripheral Vein, Percutaneous Approach (ICD-10-PCS; 2024-11-28)
PROC: 0DJ08ZZ Inspection of Upper Intestinal Tract, Via Natural or Artificial Opening Endoscopic (ICD-10-PCS; 2024-11-29)
PROC: 0W3P8ZZ Control Bleeding in Gastrointestinal Tract, Via Natural or Artificial Opening Endoscopic (ICD-10-PCS; principal; 2024-11-29 13:45)
DX: K62.5 Hemorrhage of anus and rectum (principal); N18.4 Chronic kidney disease, stage 4 (severe); D62 Acute posthemorrhagic anemia; E11.22 Type 2 diabetes mellitus with diabetic chronic kidney disease; I12.9 Hypertensive chronic kidney disease with stage 1 through stage 4 chronic kidney disease, or unspecified chronic kidney disease; Z92.3 Personal history of irradiation; Z92.21 Personal history of antineoplastic chemotherapy; K62.7 Radiation proctitis; G89.29 Other chronic pain; M48.061 Spinal stenosis, lumbar region without neurogenic claudication; Z98.42 Cataract extraction status, left eye; D50.9 Iron deficiency anemia, unspecified; Z85.41 Personal history of malignant neoplasm of cervix uteri; Z79.899 Other long term (current) drug therapy; Z88.2 Allergy status to sulfonamides; K22.89 Other specified disease of esophagus

== ENCOUNTER → 2024-11-28 | Outpatient (REF) | payer MEDICARE, BC, MEDICAID ==
[2024-11-28 10:06] LABS: PLATELET COUNT, AUTOMATED 295 10^3/uL (150-450)
== END ==
PROVIDERS: ATTEND Physician Assistant
DX: D64.9 Anemia, unspecified (principal)

== ENCOUNTER → 2024-11-28 | Outpatient (REF) | payer MEDICARE, BC, MEDICAID ==
[2024-11-28 10:34] LABS: ALT/SGPT < 9 U/L (7.0-40); AST/SGOT 12 U/L (<34); CALCIUM LEVEL 9.4 MG/DL (8.3-10.6); CARBON DIOXIDE LEVEL 24 MMOL/L (20-31); CHLORIDE LEVEL 107 MMOL/L (98-107); CREATININE FOR GFR 2.78 MG/DL (0.55-1.30); GLOMERULAR FILTRATION RATE 17.2 (>39); POTASSIUM SERUM 4.1 MMOL/L (3.5-5.1); SODIUM LEVEL 144 MMOL/L (136-145)
== END ==
PROVIDERS: ATTEND Physician Assistant
DX: K92.2 Gastrointestinal hemorrhage, unspecified (principal)

== ENCOUNTER → 2024-11-30 | Outpatient (REF) | payer MEDICARE, BC, MEDICAID ==
[~2024-11-30] MED LIST changes: +ACET-897 PO; +DOCU100C16 PO; +DULO20CA27 PO; +FAMO1TAB11 PO; +LEVO1TAB38 PO; +SUCR1TAB56 PO
== END ==
PROVIDERS: ATTEND Physician Assistant
DX: D64.9 Anemia, unspecified (principal); Z53.8 Procedure and treatment not carried out for other reasons

== ENCOUNTER → 2024-12-05 | Outpatient (REF) | payer MEDICARE, BC, MEDICAID | PROVIDERS: ATTEND Internal Medicine | DX: D64.9 Anemia, unspecified (principal); Z53.8 Procedure and treatment not carried out for other reasons ==

== ENCOUNTER → 2024-12-05 | Outpatient (REF) | payer MEDICARE, BC, MEDICAID ==
[2024-12-05 12:08] LABS: PLATELET COUNT, AUTOMATED 258 10^3/uL (150-450)
[2024-12-05 12:29] LABS: CALCIUM LEVEL 9.0 MG/DL (8.3-10.6); CARBON DIOXIDE LEVEL 28.0 MMOL/L (20-31); CHLORIDE LEVEL 105.0 MMOL/L (98-107); CREATININE FOR GFR 3.01 MG/DL (0.55-1.30); GLOMERULAR FILTRATION RATE 15.7 (>39); IRON (FE) 53.0 UG/DL (50-170); PERCENT SATURATION 25.1 % (13.2-45.0); POTASSIUM SERUM 4.4 MMOL/L (3.5-5.1); SODIUM LEVEL 142.0 MMOL/L (136-145)
== END ==
PROVIDERS: ATTEND Physician Assistant
DX: D64.9 Anemia, unspecified (principal)

== ENCOUNTER → 2024-12-10 | Outpatient (REF) | payer MEDICARE, BC, MEDICAID ==
[2024-12-10 11:09] LABS: PLATELET COUNT, AUTOMATED 254 10^3/uL (150-450)
[2024-12-10 11:36] LABS: CALCIUM LEVEL 8.4 MG/DL (8.3-10.6); CARBON DIOXIDE LEVEL 20.0 MMOL/L (20-31); CHLORIDE LEVEL 109.0 MMOL/L (98-107); CREATININE FOR GFR 2.68 MG/DL (0.55-1.30); GLOMERULAR FILTRATION RATE 18.0 (>39); IRON (FE) 44.0 UG/DL (50-170); PERCENT SATURATION 21.4 % (13.2-45.0); POTASSIUM SERUM 4.0 MMOL/L (3.5-5.1); SODIUM LEVEL 139.0 MMOL/L (136-145)
== END ==
PROVIDERS: ATTEND Physician Assistant
DX: D64.9 Anemia, unspecified (principal)

== ENCOUNTER → 2024-12-12 | Outpatient (REF) | payer MEDICARE, BC, MEDICAID | PROVIDERS: ATTEND Physician Assistant | DX: D64.9 Anemia, unspecified (principal); Z53.8 Procedure and treatment not carried out for other reasons ==

== ENCOUNTER → 2024-12-13 | Outpatient (REF) | payer MEDICARE, BC, MEDICAID | PROVIDERS: ATTEND Internal Medicine | DX: D64.9 Anemia, unspecified (principal) ==

== ENCOUNTER → 2024-12-14 | Outpatient (REF) | payer MEDICARE, BC, MEDICAID ==
[2024-12-14 12:41] LABS: PLATELET COUNT, AUTOMATED 346 10^3/uL (150-450)
[2024-12-14 13:04] LABS: IRON (FE) 33.0 UG/DL (50-170); PERCENT SATURATION 17.0 % (13.2-45.0)
== END ==
PROVIDERS: ATTEND Internal Medicine
DX: D64.9 Anemia, unspecified (principal)

== ENCOUNTER → 2024-12-17 | Outpatient (REF) | payer MEDICARE, BC, MEDICAID | PROVIDERS: ATTEND Internal Medicine | DX: R52 Pain, unspecified (principal) ==

== ENCOUNTER → 2025-01-02 | Outpatient (REF) | payer BC, MEDICAID, MEDICARE ==
[~2025-01-02] MED LIST changes: +CALC1TAB63 PO
[2025-01-02 11:50] LABS: BASO # 0.0 10^3/uL (0.0-0.2); BASO % 0.4 % (0.0-1.0); EOS # 0.3 10^3/uL (0.0-0.5); EOS % 4.8 % (0.0-3.0); LYMPH # 1.0 10^3/uL (1.5-5.0); LYMPH % 15.1 % (24.0-44.0); MONO # 0.4 10^3/uL (0.0-0.8); MONO % 6.1 % (2.0-8.0); NEUTROPHILS # 5.0 10^3/uL (1.5-8.5); NEUTROPHILS % 72.7 % (36.0-66.0); PLATELET COUNT, AUTOMATED 356 10^3/uL (150-450)
[2025-01-02 12:21] LABS: CALCIUM LEVEL 8.4 MG/DL (8.3-10.6); CARBON DIOXIDE LEVEL 24.0 MMOL/L (20-31); CHLORIDE LEVEL 105.0 MMOL/L (98-107); CREATININE FOR GFR 2.98 MG/DL (0.55-1.30); GLOMERULAR FILTRATION RATE 15.9 (>39); POTASSIUM SERUM 4.0 MMOL/L (3.5-5.1); SODIUM LEVEL 140.0 MMOL/L (136-145)
[2025-01-02 12:26] LABS: CALCIUM LEVEL 8.3 MG/DL (8.3-10.6); CARBON DIOXIDE LEVEL 23.0 MMOL/L (20-31); CHLORIDE LEVEL 106.0 MMOL/L (98-107); CREATININE FOR GFR 2.98 MG/DL (0.55-1.30); GLOMERULAR FILTRATION RATE 15.9 (>39); IRON (FE) 41.0 UG/DL (50-170); MAGNESIUM LEVEL 1.6 MG/DL (1.8-2.4); PERCENT SATURATION 21.2 % (13.2-45.0); PHOSPHORUS LEVEL 3.4 MG/DL (2.4-5.1); POTASSIUM SERUM 3.9 MMOL/L (3.5-5.1); SODIUM LEVEL 140.0 MMOL/L (136-145)
== END ==
PROVIDERS: ATTEND Internal Medicine
DX: D64.9 Anemia, unspecified (principal)

== ENCOUNTER → 2025-01-04 | Outpatient (REF) | payer BC, MEDICAID, MEDICARE | LOC: M ONCR 09:00 → EDSTATUS 10:15 | PROVIDERS: ATTEND General Practice | DX: C53.0 Malignant neoplasm of endocervix (principal); K62.7 Radiation proctitis; W88.8XXA Exposure to other ionizing radiation, initial encounter; Z79.899 Other long term (current) drug therapy; Z87.891 Personal history of nicotine dependence; Z88.1 Allergy status to other antibiotic agents; Z88.2 Allergy status to sulfonamides; Z91.09 Other allergy status, other than to drugs and biological substances; Z92.21 Personal history of antineoplastic chemotherapy; Z92.3 Personal history of irradiation ==

== ENCOUNTER → 2025-01-09 | Outpatient (REF) | payer MEDICARE, BC, MEDICAID | PROVIDERS: ATTEND Internal Medicine | DX: D64.9 Anemia, unspecified (principal) ==

== ENCOUNTER → 2025-01-09 | Outpatient (REF) | payer MEDICARE, BC, MEDICAID ==
[2025-01-09 13:19] LABS: BASO # 0.1 10^3/uL (0.0-0.2); BASO % 0.7 % (0.0-1.0); EOS # 0.2 10^3/uL (0.0-0.5); EOS % 2.7 % (0.0-3.0); LYMPH # 0.9 10^3/uL (1.5-5.0); LYMPH % 11.8 % (24.0-44.0); MONO # 0.6 10^3/uL (0.0-0.8); MONO % 7.7 % (2.0-8.0); NEUTROPHILS # 5.6 10^3/uL (1.5-8.5); NEUTROPHILS % 76.6 % (36.0-66.0); PLATELET COUNT, AUTOMATED 330 10^3/uL (150-450)
[2025-01-09 13:53] LABS: CALCIUM LEVEL 8.6 MG/DL (8.3-10.6); CARBON DIOXIDE LEVEL 19.0 MMOL/L (20-31); CHLORIDE LEVEL 104.0 MMOL/L (98-107); CREATININE FOR GFR 3.1 MG/DL (0.55-1.30); GLOMERULAR FILTRATION RATE 15.1 (>39); MAGNESIUM LEVEL 1.9 MG/DL (1.8-2.4); PHOSPHORUS LEVEL 3.5 MG/DL (2.4-5.1); POTASSIUM SERUM 4.0 MMOL/L (3.5-5.1); SODIUM LEVEL 138.0 MMOL/L (136-145)
== END ==
PROVIDERS: ATTEND Internal Medicine
DX: D64.9 Anemia, unspecified (principal)

== ENCOUNTER → 2025-01-16 | Outpatient (REF) | payer MEDICARE, BC, MEDICAID ==
[2025-01-16 11:55] LABS: PLATELET COUNT, AUTOMATED 372 10^3/uL (150-450)
[2025-01-16 12:44] LABS: CALCIUM LEVEL 8.8 MG/DL (8.3-10.6); CARBON DIOXIDE LEVEL 24.0 MMOL/L (20-31); CHLORIDE LEVEL 101.0 MMOL/L (98-107); CREATININE FOR GFR 3.19 MG/DL (0.55-1.30); GLOMERULAR FILTRATION RATE 14.6 (>39); POTASSIUM SERUM 3.9 MMOL/L (3.5-5.1); SODIUM LEVEL 138.0 MMOL/L (136-145)
== END ==
PROVIDERS: ATTEND Physician Assistant
DX: D64.9 Anemia, unspecified (principal)

== ENCOUNTER → 2025-01-17 | Outpatient (REF) | payer MEDICARE, BC, MEDICAID ==
[2025-01-17 18:17] LABS: AMORPHOUS SEDIMENT SMALL (NEGATIVE); APPEARANCE, URINE TURBID (CLEAR); BACTERIA, URINE AUTO 2+ (NEGATIVE); BILIRUBIN, URINE AUTO NEGATIVE (NEGATIVE); BLOOD, URINE BLOOD 2+ (NEGATIVE); GLUCOSE, URINE (UA) AUTO NEGATIVE (NEGATIVE); KETONE, URINE AUTO NEGATIVE (NEGATIVE); LEUKOCYTE ESTERASE, URINE AUTO 3+ (NEGATIVE); MUCUS, URINE SMALL (NEGATIVE); NITRITE, URINE AUTO NEGATIVE (NEGATIVE); PROTEIN, URINE AUTO 2+ mg/dL (NEGATIVE); RBC, URINE AUTO 36 /HPF (0-3); SPECIFIC GRAVITY URINE AUTO 1.012 (1.002-1.035); SQUAMOUS EPITHELIAL CELL UR AU 6 /HPF (0-6); UROBILINOGEN, URINE AUTO 0.2 mg/dL (0.0-2.0); WBC, URINE AUTO TNTC /HPF (0-3)
== END ==
PROVIDERS: ATTEND Physician Assistant
DX: R10.9 Unspecified abdominal pain (principal)

== ENCOUNTER 2025-01-18 14:51 | Emergency (ER) | payer MEDICARE, BC, MEDICAID ==
[~2025-01-18] VITALS: Ht 165.1 cm; Wt 80.0 kg
[2025-01-18 15:04] VITALS: TEMP 97.5
[2025-01-18 15:44] LABS: BASO # 0.0 10^3/uL (0.0-0.2); BASO % 0.4 % (0.0-1.0); EOS # 0.2 10^3/uL (0.0-0.5); EOS % 2.4 % (0.0-3.0); LYMPH # 1.1 10^3/uL (1.5-5.0); LYMPH % 13.6 % (24.0-44.0); MONO # 0.6 10^3/uL (0.0-0.8); MONO % 7.8 % (2.0-8.0); NEUTROPHILS # 5.9 10^3/uL (1.5-8.5); NEUTROPHILS % 75.3 % (36.0-66.0); PLATELET COUNT, AUTOMATED 312 10^3/uL (150-450)
[2025-01-18 16:13] LABS: ALT/SGPT < 9 U/L (7.0-40); AST/SGOT 14 U/L (<34); CALCIUM LEVEL 8.8 MG/DL (8.3-10.6); CARBON DIOXIDE LEVEL 19 MMOL/L (20-31); CHLORIDE LEVEL 102 MMOL/L (98-107); CREATININE FOR GFR 3.29 MG/DL (0.55-1.30); GLOMERULAR FILTRATION RATE 14.1 (>39); POTASSIUM SERUM 3.7 MMOL/L (3.5-5.1); SODIUM LEVEL 135 MMOL/L (136-145)
[2025-01-18] MEDS: NS (Normal Saline) 0.9% 1,000 ML IV ONE (17:00)
[2025-01-18] MEDS ORDERED: HOME MED LIST COMPLETE! XX SCH (18:15)
[2025-01-18] MEDS ORDERED: CEPH500C PO (19:54)
[2025-01-18] MEDS: CEPHALEXIN 250 MG CAPSULE PO ONE (20:02)
[2025-01-18 20:15] VITALS: BP 135/61; O2SAT 97
== END 2025-01-18 20:36 | disposition home or self-care (01) ==
LOC: M ED 14:51
DX: K21.9 Gastro-esophageal reflux disease without esophagitis (principal); N18.9 Chronic kidney disease, unspecified; R10.9 Unspecified abdominal pain; E11.9 Type 2 diabetes mellitus without complications; J30.89 Other allergic rhinitis; J30.2 Other seasonal allergic rhinitis; Z85.41 Personal history of malignant neoplasm of cervix uteri; Z79.899 Other long term (current) drug therapy; Z88.2 Allergy status to sulfonamides

== ENCOUNTER → 2025-01-18 | Outpatient (CLI) | payer MEDICARE, BC, MEDICAID | LOC: M RAD 09:48 | PROVIDERS: ATTEND Physician Assistant | DX: N18.6 End stage renal disease (principal); R10.9 Unspecified abdominal pain; K59.00 Constipation, unspecified ==

== ENCOUNTER → 2025-01-18 | Outpatient (REF) | payer MEDICARE, BC, MEDICAID ==
[2025-01-18 10:46] LABS: BASO # 0.0 10^3/uL (0.0-0.2); BASO % 0.4 % (0.0-1.0); EOS # 0.2 10^3/uL (0.0-0.5); EOS % 2.6 % (0.0-3.0); LYMPH # 0.9 10^3/uL (1.5-5.0); LYMPH % 10.1 % (24.0-44.0); MONO # 0.6 10^3/uL (0.0-0.8); MONO % 6.7 % (2.0-8.0); NEUTROPHILS # 7.4 10^3/uL (1.5-8.5); NEUTROPHILS % 79.8 % (36.0-66.0); PLATELET COUNT, AUTOMATED 359 10^3/uL (150-450)
[2025-01-18 11:15] LABS: ALT/SGPT < 9 U/L (7.0-40); AST/SGOT 10 U/L (<34); CALCIUM LEVEL 8.6 MG/DL (8.3-10.6); CARBON DIOXIDE LEVEL 24 MMOL/L (20-31); CHLORIDE LEVEL 100 MMOL/L (98-107); CREATININE FOR GFR 3.42 MG/DL (0.55-1.30); GLOMERULAR FILTRATION RATE 13.4 (>39); POTASSIUM SERUM 3.3 MMOL/L (3.5-5.1); SODIUM LEVEL 136 MMOL/L (136-145)
== END ==
PROVIDERS: ATTEND Physician Assistant
DX: R10.9 Unspecified abdominal pain (principal)

== ENCOUNTER → 2025-01-21 | Outpatient (REF) | payer MEDICARE, BC, MEDICAID | PROVIDERS: ATTEND Internal Medicine | DX: C53.0 Malignant neoplasm of endocervix (principal) ==

== ENCOUNTER → 2025-01-23 | Outpatient (REF) | payer SELFPAY ==
[2025-01-23 12:04] LABS: CALCIUM LEVEL 7.6 MG/DL (8.3-10.6); CARBON DIOXIDE LEVEL 23.0 MMOL/L (20-31); CHLORIDE LEVEL 107.0 MMOL/L (98-107); CREATININE FOR GFR 2.81 MG/DL (0.55-1.30); GLOMERULAR FILTRATION RATE 17.0 (>39); POTASSIUM SERUM 3.8 MMOL/L (3.5-5.1); SODIUM LEVEL 143.0 MMOL/L (136-145)
== END ==
PROVIDERS: ATTEND Physician Assistant
DX: D64.9 Anemia, unspecified (principal)

== ENCOUNTER → 2025-01-23 | Outpatient (REF) | payer MEDICARE, BC, MEDICAID ==
[2025-01-23 11:30] LABS: BASO # 0.0 10^3/uL (0.0-0.2); BASO % 0.4 % (0.0-1.0); EOS # 0.4 10^3/uL (0.0-0.5); EOS % 4.7 % (0.0-3.0); LYMPH # 1.2 10^3/uL (1.5-5.0); LYMPH % 15.4 % (24.0-44.0); MONO # 0.4 10^3/uL (0.0-0.8); MONO % 5.2 % (2.0-8.0); NEUTROPHILS # 5.9 10^3/uL (1.5-8.5); NEUTROPHILS % 73.8 % (36.0-66.0); PLATELET COUNT, AUTOMATED 382 10^3/uL (150-450)
== END ==
PROVIDERS: ATTEND Internal Medicine
DX: C53.0 Malignant neoplasm of endocervix (principal); D64.9 Anemia, unspecified

== ENCOUNTER → 2025-01-28 | Outpatient (REF) | payer MEDICARE, BC, MEDICAID ==
[2025-01-28 12:28] LABS: PLATELET COUNT, AUTOMATED 446 10^3/uL (150-450)
[2025-01-28 13:06] LABS: CALCIUM LEVEL 7.4 MG/DL (8.3-10.6); CARBON DIOXIDE LEVEL 25.0 MMOL/L (20-31); CHLORIDE LEVEL 104.0 MMOL/L (98-107); CREATININE FOR GFR 2.41 MG/DL (0.55-1.30); GLOMERULAR FILTRATION RATE 20.5 (>39); POTASSIUM SERUM 4.3 MMOL/L (3.5-5.1); SODIUM LEVEL 138.0 MMOL/L (136-145)
== END ==
PROVIDERS: ATTEND Internal Medicine
DX: N18.9 Chronic kidney disease, unspecified (principal)

== ENCOUNTER → 2025-01-30 | Outpatient (CLI) | payer MEDICARE, BC, MEDICAID | LOC: M RAD 12:45 | PROVIDERS: ATTEND Physician Assistant | DX: N13.1 Hydronephrosis with ureteral stricture, not elsewhere classified (principal) ==

== ENCOUNTER → 2025-02-04 | Outpatient (REF) | payer MEDICARE, BC | PROVIDERS: ATTEND Internal Medicine | DX: D64.9 Anemia, unspecified (principal) ==

== ENCOUNTER → 2025-02-06 | Outpatient (REF) | payer MEDICARE, BC | PROVIDERS: ATTEND Internal Medicine | DX: D64.9 Anemia, unspecified (principal); Z53.8 Procedure and treatment not carried out for other reasons ==

== ENCOUNTER → 2025-02-06 | Outpatient (REF) | payer MEDICARE, BC, MEDICAID | PROVIDERS: ATTEND Internal Medicine | DX: D64.9 Anemia, unspecified (principal); Z53.8 Procedure and treatment not carried out for other reasons ==

== ENCOUNTER → 2025-02-08 | Outpatient (REF) | payer MEDICARE, BC ==
[2025-02-08 10:59] LABS: PLATELET COUNT, AUTOMATED 323 10^3/uL (150-450)
[2025-02-08 11:14] LABS: IRON (FE) 56.0 UG/DL (50-170)
[2025-02-08 11:15] LABS: PERCENT SATURATION 16.5 % (13.2-45.0)
[2025-02-08 11:18] LABS: CALCIUM LEVEL 8.8 MG/DL (8.3-10.6); CARBON DIOXIDE LEVEL 31.0 MMOL/L (20-31); CHLORIDE LEVEL 91.0 MMOL/L (98-107); CREATININE FOR GFR 0.82 MG/DL (0.55-1.30); GLOMERULAR FILTRATION RATE 74.6 (>39); POTASSIUM SERUM 3.9 MMOL/L (3.5-5.1); SODIUM LEVEL 133.0 MMOL/L (136-145)
== END ==
PROVIDERS: ATTEND Internal Medicine
DX: D64.9 Anemia, unspecified (principal)

== ENCOUNTER → 2025-02-27 | Outpatient (REF) | payer BC, MEDICAID, MEDICARE ==
[~2025-02-27] MED LIST changes: +CALC500C16 PO; +MILKSUS3 PO
[2025-02-27 14:24] LABS: PLATELET COUNT, AUTOMATED 373 10^3/uL (150-450)
[2025-02-27 14:39] LABS: IRON (FE) 46.0 UG/DL (50-170); PERCENT SATURATION 24.7 % (13.2-45.0)
[2025-02-27 14:40] LABS: CALCIUM LEVEL 6.8 MG/DL (8.3-10.6); CARBON DIOXIDE LEVEL 18.0 MMOL/L (20-31); CHLORIDE LEVEL 112.0 MMOL/L (98-107); CREATININE FOR GFR 2.61 MG/DL (0.55-1.30); GLOMERULAR FILTRATION RATE 18.6 (>39); POTASSIUM SERUM 4.2 MMOL/L (3.5-5.1); SODIUM LEVEL 143.0 MMOL/L (136-145)
== END ==
PROVIDERS: ATTEND Internal Medicine
DX: D64.9 Anemia, unspecified (principal)

== ENCOUNTER → 2025-02-28 | Outpatient (REF) | payer MEDICARE, BC, MEDICAID ==
[2025-02-28 18:20] LABS: APPEARANCE, URINE CLOUDY (CLEAR); BACTERIA, URINE AUTO 2+ (NEGATIVE); BILIRUBIN, URINE AUTO NEGATIVE (NEGATIVE); BLOOD, URINE BLOOD 3+ (NEGATIVE); GLUCOSE, URINE (UA) AUTO 2+ mg/dL (NEGATIVE); KETONE, URINE AUTO NEGATIVE (NEGATIVE); LEUKOCYTE ESTERASE, URINE AUTO 3+ (NEGATIVE); MUCUS, URINE SMALL (NEGATIVE); NITRITE, URINE AUTO NEGATIVE (NEGATIVE); PROTEIN, URINE AUTO 2+ mg/dL (NEGATIVE); RBC, URINE AUTO 52 /HPF (0-3); SPECIFIC GRAVITY URINE AUTO 1.012 (1.002-1.035); SQUAMOUS EPITHELIAL CELL UR AU 1 /HPF (0-6); UROBILINOGEN, URINE AUTO 0.2 mg/dL (0.0-2.0); WBC, URINE AUTO TNTC /HPF (0-3)
== END ==
PROVIDERS: ATTEND Nurse Practitioner
DX: N39.0 Urinary tract infection, site not specified (principal)

== ENCOUNTER 2025-03-01 15:01 | Emergency (ER) | payer MEDICARE, BC, MEDICAID ==
[~2025-03-01] VITALS: Ht 165.1 cm; Wt 78.2 kg
[~2025-03-01 15:01] MED LIST changes: -CALC500C16 PO; -MILKSUS3 PO
[2025-03-01 15:54] LABS: BASO # 0.0 10^3/uL (0.0-0.2); BASO % 0.4 % (0.0-1.0); EOS # 0.3 10^3/uL (0.0-0.5); EOS % 4.3 % (0.0-3.0); LYMPH # 1.4 10^3/uL (1.5-5.0); LYMPH % 17.1 % (24.0-44.0); MONO # 0.5 10^3/uL (0.0-0.8); MONO % 5.8 % (2.0-8.0); NEUTROPHILS # 5.7 10^3/uL (1.5-8.5); NEUTROPHILS % 72.1 % (36.0-66.0); PLATELET COUNT, AUTOMATED 406 10^3/uL (150-450)
[2025-03-01] MEDS: NS 500 ML IV ONE (15:59)
[2025-03-01 16:21] LABS: ALT/SGPT < 9 U/L (7.0-40); AST/SGOT 13 U/L (<34); CALCIUM LEVEL 8.1 MG/DL (8.3-10.6); CARBON DIOXIDE LEVEL 21 MMOL/L (20-31); CHLORIDE LEVEL 110 MMOL/L (98-107); CREATININE FOR GFR 2.47 MG/DL (0.55-1.30); GLOMERULAR FILTRATION RATE 19.9 (>39); POTASSIUM SERUM 4.0 MMOL/L (3.5-5.1); SODIUM LEVEL 141 MMOL/L (136-145)
[2025-03-01 16:22] LABS: INR 1.04
[2025-03-01] MEDS ORDERED: CALC500C16 PO (16:47)
[2025-03-01] MEDS ORDERED: MILKSUS3 PO (16:47)
[2025-03-01] MEDS ORDERED: FLEEENE12 PR (16:47)
[2025-03-01] MEDS ORDERED: HOME MED LIST COMPLETE! XX SCH (16:50)
[2025-03-01 18:30] VITALS: BP 118/53; TEMP 98.3; O2SAT 100
[2025-03-01 18:45] VITALS: BP 112/55; TEMP 98.3; O2SAT 99
[2025-03-01 19:45] VITALS: BP 102/52; TEMP 97.8; O2SAT 98
[2025-03-01 20:28] VITALS: BP 118/58; TEMP 97.6; O2SAT 98
== END 2025-03-01 20:50 | disposition home or self-care (01) ==
LOC: M ED 15:01
DX: D64.9 Anemia, unspecified (principal); E11.9 Type 2 diabetes mellitus without complications; I12.9 Hypertensive chronic kidney disease with stage 1 through stage 4 chronic kidney disease, or unspecified chronic kidney disease; K21.9 Gastro-esophageal reflux disease without esophagitis; K92.2 Gastrointestinal hemorrhage, unspecified; Z86.14 Personal history of Methicillin resistant Staphylococcus aureus infection; Z79.899 Other long term (current) drug therapy; Z88.2 Allergy status to sulfonamides; J30.2 Other seasonal allergic rhinitis
CPT/HCPCS: 36415; 36430; 80048; 80053; 85025; 85027; 85610; 85730; 86850; 86900; 86901; 86920; 96360; 99285; P9016

== ENCOUNTER → 2025-03-01 | Outpatient (REF) | payer MEDICARE, BC, MEDICAID ==
[2025-03-01 11:44] LABS: PLATELET COUNT, AUTOMATED 412 10^3/uL (150-450)
[2025-03-01 12:07] LABS: CALCIUM LEVEL 7.8 MG/DL (8.3-10.6); CARBON DIOXIDE LEVEL 22.0 MMOL/L (20-31); CHLORIDE LEVEL 110.0 MMOL/L (98-107); CREATININE FOR GFR 2.55 MG/DL (0.55-1.30); GLOMERULAR FILTRATION RATE 19.1 (>39); POTASSIUM SERUM 4.0 MMOL/L (3.5-5.1); SODIUM LEVEL 141.0 MMOL/L (136-145)
== END ==
PROVIDERS: ATTEND Nurse Practitioner
DX: D64.9 Anemia, unspecified (principal)

== ENCOUNTER → 2025-03-04 | Outpatient (REF) | payer MEDICARE, BC, MEDICAID ==
[~2025-03-04] MED LIST changes: +CALC500C16 PO; +MILKSUS3 PO
== END ==
PROVIDERS: ATTEND Nurse Practitioner Family
DX: D64.9 Anemia, unspecified (principal); Z53.8 Procedure and treatment not carried out for other reasons

== ENCOUNTER → 2025-03-06 | Outpatient (REF) | PROVIDERS: ATTEND Physician Assistant | DX: Z53.8 Procedure and treatment not carried out for other reasons (principal) ==

== ENCOUNTER → 2025-03-08 | Outpatient (REF) | payer MEDICARE, BC, MEDICAID ==
[2025-03-08 10:25] LABS: BASO # 0.0 10^3/uL (0.0-0.2); BASO % 0.4 % (0.0-1.0); EOS # 0.2 10^3/uL (0.0-0.5); EOS % 3.2 % (0.0-3.0); LYMPH # 1.1 10^3/uL (1.5-5.0); LYMPH % 14.5 % (24.0-44.0); MONO # 0.6 10^3/uL (0.0-0.8); MONO % 7.4 % (2.0-8.0); NEUTROPHILS # 5.7 10^3/uL (1.5-8.5); NEUTROPHILS % 74.1 % (36.0-66.0); PLATELET COUNT, AUTOMATED 337 10^3/uL (150-450)
[2025-03-08 10:57] LABS: ALT/SGPT < 9 U/L (7.0-40); AST/SGOT 11 U/L (<34); CA 125 19.0 U/ML (<35); CALCIUM LEVEL 9.4 MG/DL (8.3-10.6); CARBON DIOXIDE LEVEL 22 MMOL/L (20-31); CHLORIDE LEVEL 108 MMOL/L (98-107); CREATININE FOR GFR 3.18 MG/DL (0.55-1.30); GLOMERULAR FILTRATION RATE 14.7 (>39); POTASSIUM SERUM 3.9 MMOL/L (3.5-5.1); SODIUM LEVEL 140 MMOL/L (136-145)
== END ==
PROVIDERS: ATTEND Nurse Practitioner Family
DX: D64.9 Anemia, unspecified (principal); Z87.19 Personal history of other diseases of the digestive system; C53.9 Malignant neoplasm of cervix uteri, unspecified; C54.1 Malignant neoplasm of endometrium